=== PATIENT | female | born 1995 | race Caucasian/White ===

== ENCOUNTER 2024-06-29 08:20 | Emergency (ER) | payer OTHER, SELFPAY ==
[2024-06-29 08:26] VITALS: BP 116/64; PULSE 94; RESP 18; TEMP 36.6; O2SAT 100
[2024-06-29 08:50] LABS: Basophils Percent Auto 0.2 % (0.2-1.2); Eosinophils Absolute Auto 0.1 K/mm3 (0-0.3); Eosinophils Percent Auto 0.6 % (0-4.4); Hematocrit 42.2 % (37.0-47.0); Hemoglobin 14.8 g/dL (12.0-15.0); Immature Granulocyte Absolute 0.04 K/mm3 (0.00-0.031); Immature Granulocyte Percent A 0.4 % (0-0.5); Lymphocytes Absolute Auto 0.82 K/mm3 (0.9-3.2); Lymphocytes Percent Auto 7.6 % (18.3-44.2); Mean Corpuscular HGB Conc 35.1 g/dl (32-36); Mean Corpuscular Hemoglobin 32.2 pg (26-34); Mean Corpuscular Volume 91.9 fl (80-100); Mean Platelet Volume 9.2 fl (7.4-10.4); Monocytes Absolute Auto 0.4 K/mm3 (0.1-0.6); Monocytes Percent Auto 3.3 % (2.6-8.5); Neutrophils Absolute Auto 9.6 K/mm3 (1.3-6.7); Neutrophils Percent Auto 87.9 % (45.5-73.1); Platelet Count Result 254 k/mm3 (150-375); Red Blood Count 4.59 M/mm3 (4.2-5.4); White Blood Count 10.9 K/mm3 (4.5-10.0)
[2024-06-29] MEDS: SODIUM CHLORIDE 0.9% IV 1,000 ML 999 ML IV CONT (08:54)
[2024-06-29] MEDS: PROMETHAZINE HCL 25 MG/ML AMPUL 12.5 MG IV PUSH (08:54)
[2024-06-29 09:02] LABS: Alanine Aminotransferase 33 U/L (6-35); Albumin Level 5.1 g/dL (3.5-5.1); Alkaline Phosphatase 83 U/L (38-126); Anion Gap 12 mmol/L (4-12); Aspartate Amino Transferase 31 U/L (14-36); Bilirubin,Total 0.9 mg/dL (0.2-1.3); Blood Urea Nitrogen 12 mg/dL (7-17); Carbon Dioxide 22 mmol/L (22-30); Chloride 103 mmol/L (98-107); Estimated CRCL calculation 123 ml/min; Estimated Glomerular Filt Rate > 60; Glucose 98 mg/dL (65-110); Lipase 111 U/L (23-300); Sodium 137 mmol/L (137-145)
[2024-06-29 09:32] LABS: Add Urine Microscopic? NO; Appearance Urine Clear (Clear); Bilirubin Urine Negative (Negative); Blood Urine Negative (Negative); Color Urine Yellow (Yellow); Glucose Urine UA Negative (Negative); Ketones Urine Trace mg/dL (Negative); Leukocyte Esterase Ur Negative LEU/UL (Negative); Nitrate Urine Negative (Negative); Protein Urine Negative (Negative); Specific Grav Ur 1.023 (1.001-1.035); Urobilinogen Urine 0.2 mg/dL (<2.0); pH Urine 5.5 (5.0-9.0)
--- NOTE | 2024-06-29 10:16 | ED.NAVMDI ---
HPI - Nausea/Vomiting/Diarrhea General Chief complaint: Nausea/Vomiting/Diarrhea Stated complaint: 7 weeks -diarrhea and vomiting Time Seen by Provider: 06/29/24 08:44 History of Present Illness HPI Narrative: Patient is a 29-year-old female who presents ER with nausea and vomiting and diarrhea. Began last night. No fevers or chills or sweats. No blood in stool or emesis. No known sick contacts. She does not have access to antiemetics. She is 7 weeks . No vaginal bleeding. She is a patient of Dr. Claudio. . Related Data Allergies Allergy/AdvReac Type Severity Reaction Status Date / Time benactyzine Allergy Severe Hives Verified 06/29/24 08:31 Review of Systems Review of Systems: All systems reviewed & are unremarkable except as noted in HPI and below Constitutional: Constitutional: Reports no additional constitutional complaints ENT: Reports system reviewed and no additional complaints, except as documented Cardiovascular: Cardiovascular: Reports no additional cardiovascular complaints Respiratory: Respiratory: Reports no additional respiratory complaints Gastrointestinal: Gastrointestinal: Denies abdominal pain, Reports diarrhea, Reports nausea and Reports vomiting Genitourinary: Genitourinary: Reports no additional female genitourinary complaints [facility] Past Medical History Medical History Encounter for IUD insertion 07/25/2023 Surgical History Surgical History H/O shoulder surgery left 2013 Family History Family History Grandparent Acute myocardial infarction Cerebrovascular accident Sibling Asthma Depression Hyperthyroidism Father Colon polyp Skin cancer Social History Social History Smoking status: Never smoker Alcohol intake: current Alcohol use details: soically Substance use: never Substance use type: does not use Lack of Transportation: No Lack of Food: Never True Current Housing: I Have Housing Concerned About Future Housing: No Difficulty Paying Gas/Electric Bills: No Difficulty Paying for Meds: No Currently Unemployed: No Education: High School Diploma/GED Difficulty w/ Childcare or Family Care: No Living arrangements: with family Occupation/Education: occupation Gender identity (if verbalized by the patient): Female Sexual Orientation (if Verbalized by the Patient): Straight or Heterosexual Exam Narrative: GENERAL: Well-appearing, well-nourished, and in no acute distress. HEAD: Normocephalic, atraumatic. ENT: Mucous membranes moist. CHEST: Clear to auscultation. No respiratory distress. HEART: Regular rate and rhythm. Normal peripheral pulses. ABDOMEN: Soft, nontender, nondistended. EXTREMITIES: Normal range of motion. No edema. NEURO: Alert and oriented x3. PSYCH: Normal mood and affect. Course Vital Signs Vital signs: Vital Signs Temperature 98 F 06/29/24 08:26 Pulse Rate 94 06/29/24 08:26 Respiratory Rate 18 06/29/24 08:26 Blood Pressure 116/64 06/29/24 08:26 Pulse Oximetry 100 06/29/24 08:26 Oxygen Delivery Room Air 06/29/24 08:26 Temperature 98 F 06/29/24 08:26 Pulse Rate 94 06/29/24 08:26 Respiratory Rate 18 06/29/24 08:26 Blood Pressure 116/64 06/29/24 08:26 Pulse Oximetry 100 06/29/24 08:26 Oxygen Delivery Room Air 06/29/24 08:26 MDM - Nausea/Vomiting/Diarrhea MDM Narrative Medical decision making narrative: -Course: Improving with medication. Comfortable discharge home. -Co-morbidities complicating care: -Social determinants of health: Lives at home with spouse and child. -External Chart Review: None -Hx from independent Sources: Patient -Independent interpretation of studies: Normal CMP. Nonspecific elevati
[2024-06-29 10:25] VITALS: BP 126/84; PULSE 86; RESP 14; O2SAT 99
[2024-06-29] MEDS: ONDANSETRON HCL ODT 4 MG TABLET PO (10:39)
== END 2024-06-29 10:30 | disposition home or self-care (01) ==
PROVIDERS: Emergency Provider Emergency Medicine; PCP Nurse Practitioner
DX: O21.9 Vomiting of pregnancy, unspecified (principal); Z3A.01 Less than 8 weeks gestation of pregnancy
CPT/HCPCS: 36415; 80053; 81003; 83690; 85025; 96361; 96374; 99284; A9270; J2550; J7030

== ENCOUNTER 2024-07-22 09:47 | Outpatient (CLI) | payer OTHER, SELFPAY ==
[2024-07-22 10:16] LABS: Basophils Percent Auto 0.5 % (0.2-1.2); Eosinophils Absolute Auto 0.1 K/mm3 (0-0.3); Eosinophils Percent Auto 0.9 % (0-4.4); Hematocrit 39.1 % (37.0-47.0); Hemoglobin 13.2 g/dL (12.0-15.0); Immature Granulocyte Absolute 0.04 K/mm3 (0.00-0.031); Immature Granulocyte Percent A 0.5 % (0-0.5); Lymphocytes Absolute Auto 1.91 K/mm3 (0.9-3.2); Lymphocytes Percent Auto 23.9 % (18.3-44.2); Mean Corpuscular HGB Conc 33.8 g/dl (32-36); Mean Corpuscular Hemoglobin 31.7 pg (26-34); Mean Corpuscular Volume 93.8 fl (80-100); Mean Platelet Volume 9.2 fl (7.4-10.4); Monocytes Absolute Auto 0.4 K/mm3 (0.1-0.6); Monocytes Percent Auto 4.6 % (2.6-8.5); Neutrophils Absolute Auto 5.6 K/mm3 (1.3-6.7); Neutrophils Percent Auto 69.6 % (45.5-73.1); Platelet Count Result 260 k/mm3 (150-375); Red Blood Count 4.17 M/mm3 (4.2-5.4); Red Cell Distribution Width 12.3 % (11.5-14.5)
[2024-07-22 11:36] LABS: Hepatitis B Surface Antigen Negative (Negative); Rubella IgG Antibody 51.3 IU/ML
[2024-07-22 11:37] LABS: Rapid Plasma Reagin Non-Reactive (NonReactive)
[2024-07-22 14:15] LABS: HIV 1/2 Ab P24 Ag Result Negative (Negative)
[2024-07-23 16:10] LABS: CMV IgG Antibody <0.60 U/mL
[2024-07-31 19:14] LABS: SMA 2.0 RISK VARIANT NOT DETECTED
[2024-08-06 07:58] LABS: CF Result NEGATIVE (NEGATIVE); Ethnicity CA
== END 2024-07-22 09:48 | disposition home or self-care (01) ==
LOC: ANHLAB 09:48
PROVIDERS: PCP Nurse Practitioner; Visit Provider Obstetrics & Gynecology
DX: N94.89 Other specified conditions associated with female genital organs and menstrual cycle (principal)
CPT/HCPCS: 36415; 81220; 81329; 85025; 86592; 86644; 86703; 86747; 86762; 86787; 86850; 86900; 86901; 87086; 87340; G0432

== ENCOUNTER 2024-07-22 10:45 | Outpatient (CLI) | payer OTHER, SELFPAY ==
--- NOTE | ~2024-07-22 | US_ITS ---
EXAMINATION: US OB <=14 wk fetus w TV DATE: 07/22/2024 11:11 INDICATION: Other specified conditions associated with female. . Uncertain dates. TECHNIQUE: Real-time transabdominal and transvaginal pelvic ultrasound was performed. COMPARISON: None. FINDINGS: TRANSABDOMINAL ULTRASOUND: The uterus measures 11.3 x 6.0 x 8.4 cm. TRANSVAGINAL ULTRASOUND: There is an intrauterine gestational sac. A yolk sac is identified. The fet al crown rump length measures 2.6 cm, which correlates with an estimated gestational age of 9 weeks a nd 2 day(s) (+/-) 6 day(s). heart motion is identified measuring 185 beats per minute (bpm) by M-mode Doppler. The right ovary measures 4.1 x 2.4 x 2.5 cm. The left ovary measures 3.3 x 1.8 x 1.6 cm. There is no free fluid in the pelvis. IMPRESSION: 1. Single living intrauterine gestation with estimated date of delivery of 02/22/2025. Reviewed, dictated and finalized at location A. IMPRESSION: 1. Single living intrauterine gestation with estimated date of delivery of 01/26.
== END 2024-07-22 10:46 ==
LOC: MICIMG 10:46
PROVIDERS: PCP Obstetrics & Gynecology; Visit Provider Obstetrics & Gynecology
DX: N94.89 Other specified conditions associated with female genital organs and menstrual cycle (principal)
CPT/HCPCS: 76801; 76817

== ENCOUNTER 2024-11-29 08:27 | Outpatient (RCR) | payer OTHER, SELFPAY ==
[2024-11-29 10:24] LABS: Basophils Percent Auto 0.4 % (0.2-1.2); Eosinophils Absolute Auto 0.1 K/mm3 (0-0.3); Eosinophils Percent Auto 0.7 % (0-4.4); Hematocrit 33.7 % (37.0-47.0); Hemoglobin 11.3 g/dL (12.0-15.0); Immature Granulocyte Absolute 0.05 K/mm3 (0.00-0.031); Immature Granulocyte Percent A 0.5 % (0-0.5); Lymphocytes Absolute Auto 2.03 K/mm3 (0.9-3.2); Mean Corpuscular HGB Conc 33.5 g/dl (32-36); Mean Corpuscular Hemoglobin 32.4 pg (26-34); Mean Corpuscular Volume 96.6 fl (80-100); Mean Platelet Volume 9.2 fl (7.4-10.4); Monocytes Absolute Auto 0.6 K/mm3 (0.1-0.6); Monocytes Percent Auto 5.7 % (2.6-8.5); Neutrophils Absolute Auto 7.9 K/mm3 (1.3-6.7); Neutrophils Percent Auto 73.7 % (45.5-73.1); Platelet Count Result 258 k/mm3 (150-375); Red Blood Count 3.49 M/mm3 (4.2-5.4); Red Cell Distribution Width 12.1 % (11.5-14.5); White Blood Count 10.7 K/mm3 (4.5-10.0)
[2024-11-29 10:32] LABS: Glucose 1 Hour PP 50gm Dose 59 mg/dL
[2024-11-29 11:12] LABS: HIV 1/2 Ab P24 Ag Result Negative (Negative)
[2024-11-29 19:20] LABS: Rapid Plasma Reagin Non-Reactive (NonReactive)
[2024-11-30] MEDS: RHO(D) IMMUNE GLOBULIN 300 MCG/2 ML SYRINGE IM (11:54)
== END 2025-02-27 23:59 | disposition home or self-care (01) ==
LOC: ANHLAB 08:27
PROVIDERS: PCP Obstetrics & Gynecology; Visit Provider Obstetrics & Gynecology
DX: Z11.4 Encounter for screening for human immunodeficiency virus [HIV] (principal); Z11.3 Encounter for screening for infections with a predominantly sexual mode of transmission; O36.0190 Maternal care for anti-D [Rh] antibodies, unspecified trimester, not applicable or unspecified; Z3A.00 Weeks of gestation of pregnancy not specified
CPT/HCPCS: 36415; 82947; 85025; 85461; 86592; 86703; 86850; 86900; 86901; 90384; 96372; G0432; J2790

== ENCOUNTER 2025-01-03 13:12 | Outpatient (CLI) | payer OTHER, SELFPAY ==
--- NOTE | ~2025-01-03 | US_ITS ---
EXAMINATION: US OB follow up DATE: 01/03/2025 13:36 INDICATION: Encounter for supervision of normal during third trimester. TECHNIQUE: Real-time ultrasound of the pelvis was performed. The interpreting radiologist was not pre sent for the study. COMPARISON: 12/23/2024 FINDINGS: There is a single living fetus in vertex presentation. The placenta is anterior and not low-lying. F etal heart rate is 142 beats per minute (bpm). The amniotic fluid index is 10.1 cm, which is normal (5th%-95%: 8.3-24.5 cm at 33 weeks estimated gestational age). The following biometric data were obtained: BPD: 8.4 cm -> 33 weeks 6 days Head circumference: 30.7 cm -> 34 weeks 1 days Abdominal circumference: 28.8 cm -> 32 weeks 6 days Femur length: 6.2 cm -> 32 weeks 2 days These measurements are concordant. Head circumference to abdominal circumference ratio: 1.06 (normal range 0.96-1.11). Estimated weight: 2068 g (+/-) 310 g or 4 lbs. 9 oz. (+/-) 11 oz. IMPRESSION: 1. Single living fetus in vertex presentation with heart rate of 142 bpm. 2. Normal amniotic fluid index of 10.1 cm. 3. Estimated weight is 29th percentile by Hadlock criteria when 02/19/2025 is used as the estima hannah date of delivery (LONI). Please correlate with clinical information or earlier ultrasounds for mos t accurate LONI. Reviewed, dictated and finalized at location B. ER PRESS OPERATOR IMPRESSION: 1. Single living fetus in vertex presentation with heart rate of 142 bpm. 2. Normal amniotic fluid index of 10.1 cm. 3. Estimated weight is 29th percentile by Hadlock criteria when 02/19/2025 is used as the estimated date of delivery (LONI). Please correlate with clinica l information or earlier ultrasounds for most accurate LONI.
== END 2025-01-03 13:13 | disposition home or self-care (01) ==
LOC: MICIMG 13:13
PROVIDERS: PCP Obstetrics & Gynecology; Visit Provider Student in an Organized Health Care Education/Training Program
DX: Z34.90 Encounter for supervision of normal pregnancy, unspecified, unspecified trimester (principal)
CPT/HCPCS: 76816

== ENCOUNTER 2025-01-08 11:27 | Outpatient (CLI) | payer OTHER, SELFPAY ==
[2025-01-08 11:50] LABS: Alanine Aminotransferase 64 U/L (6-35); Albumin Level 3.6 g/dL (3.5-5.1); Alkaline Phosphatase 329 U/L (38-126); Anion Gap 6 mmol/L (4-12); Aspartate Amino Transferase 63 U/L (14-36); Bilirubin,Total 1.9 mg/dL (0.2-1.3); Blood Urea Nitrogen 6 mg/dL (7-17); Carbon Dioxide 26 mmol/L (22-30); Chloride 104 mmol/L (98-107); Estimated Glomerular Filt Rate > 60; Glucose 76 mg/dL (65-110); INR 0.9; Potassium 3.9 mmol/L (3.4-5.0); Prothrombin Time 12.8 Seconds (11.1-14.7); Sodium 136 mmol/L (137-145)
[2025-01-08 11:51] LABS: Partial Thromboplastin Time 26.8 Seconds (22.3-36.8)
--- OUTSIDE RECORDS SUMMARY | 2025-01-08 12:14 | XMS_ITS | Referral Summary ---
Author Organization [facility] [place] [facility] [address] Address [address] [place] [id number] Care Team Providers Care Para Professional Name Role Phone Unknown, Notinfile Primary Care Provider Unavail able Adan Huitron DO Unavailable Allergies Active Allergy Reactions Criticality Noted Date Comments Benzoyl Peroxide-Aloe Vera Hives Medium 4 Benzoyl Peroxide-Sulfur Itching,Rash Medium 11/19/2021 Mold Other (See comments) Low 02/18/2022 Medications loratadine (CLARITIN) 10 mg tablet Active 123/iron/folic/ omeg3s (ONE-A-DAY WOMEN'S 1 ORAL) 11/01/2021 Active fish oil-dha-epa 1,200-144-216 mg capsule Take by mouth Active multivitamin tabletIndicatio ns:Vitamin Deficiency Prevention Take 1 tablet by mouth Active fexofenadine (JOSE) 60 mg tablet Take 1 tablet (60 mg total) by mouth daily Active ofloxacin (OCUFLOX) 0.3 % ophthalmic solutionIndicat ions:Hordeolum externum left lower eyelid instill 2 drops in left eye every 4 hours for 2 days, then 2 drops 4 times daily on days 3 through 7 5 mL 04/24/2024 Active Active Problems Problem Noted Date Diagnosed Date Acute non-recurrent maxillary sinusitis 11/19/20 21 Assessment & Plan (11/19/2021 8:28 AM BANK EXAMINER): -amoxicillin 500 b.i.d. -continue the loratadine -continue to Tylenol -drink plenty of fluids -notify your provider if you do not improve Arthralgia of elbow 03/18/2013 Arthralgia of shoulder 12/06/2012 Social History Tobacco Use Types Packs/Day Years Used Date Smoking Tobacco: Never Comments Unknown Sex and Gender Information Value Date Recorded Sex Assigned at Not on file Legal Sex Female 6:53 AM BANK EXAMINER Gender Identity Not on file Sexual Orientation Not on file Last Filed Vital Signs Vital Sign Reading Time Taken Comments Blood Pressure 120/79 04/24/2024 11:45 AM CDT Pulse 59 04/24/2024 11:45 AM CDT Temperature 36.8 C (98.2 F) 04/24/2024 11:45 AM CDT Respiratory Rate 18 04/24/2024 11:45 AM CDT Oxygen Saturation 97% 04/24/2024 11:45 AM CDT Inhaled Oxygen Concentration - - Weight 78 kg (171 lb 14.4 oz) 04/24/2024 11:45 A M CDT Height 165.1 cm (5' 5 ) 04/24/2024 11:45 AM CDT Body Mass Index 28.61 04/24/2024 11:45 AM CDT Plan of Treatment Not on file Insurance [employer] OPEN ACCESS [employer] OPEN ACCESS Care Teams Para Professional Relationship Specialty Start Date End Date Unknown, Notinfile PCP - General 04/24/24 Adan Huitron DO Family Medicine 04/24/24
--- OUTSIDE RECORDS SUMMARY | 2025-01-08 12:14 | XMS_ITS | Clinical Summary ---
Author Organization [facility] [place] [address] Address [address] [place] [phone] Care Team Providers Care Fiction And Nonfiction Prose Writer Name Role Phone Unknown, Notinfile Primary Care Provider Unavail able Adan Huirton DO Unavailable Allergies Active Allergy Reactions Criticality [...] 21 Assessment & Plan (11/19/2021 8:28 AM GENERAL FOUNDRY WORKER): -amoxicillin 500 b.i.d. -continue the loratadine -continue to Tylenol -drink plenty of fluids -notify your provider if you do not improve Arthralgia of elbow 03/18/2013 Arthralgia of shoulder 12/06/2012 Social History Tobacco Use Types Packs/Day Years Used Date Smoking Tobacco: Never Comments Unknown Sex and Gender Information Value Date Recorded Sex Assigned at Not on file Legal Sex Female 6:53 AM GENERAL FOUNDRY WORKER Gender Identity Not on file Sexual Orientation Not on file Obstetrics History Para Term AB IAB SAB Ectopic Multiple Livin g Live Births 1 0 0 0 0 0 0 0 Date Outcome GA Total Labor Labor/2nd/3rd Weight Sex Type Anes PTL Cindy A1 A5 Name Clin Last Filed Vital Signs Vital Sign Reading [...] 04/24/2024 11:45 AM CDT Plan of Treatment Health Maintenance Due Date Last Done Comments Depression Screening 1997 Hepatitis C Screening 1997 Hepatitis B Screening 2015 Regular Well Visit/Exam 18-64 2015 Cervical Cancer Screening 09/04/2021 09/04/2020 Covid-19 Vaccine ( season) 2024 02/02/2021 Influenza Vaccine (#1) 2024 , 09/13/2021, 09/04/2020, Additional history exists DTaP/Tdap/Td Vaccine (8 - Td or Tdap) 09/13/2031 09/13/2021, 05/13/2008, 07/27/2001, Additional history exists Varicella Vaccines Completed 07/09/2001, 09/17/1998 HPV Vaccines Completed 03/08/2010, 07/28, 05/13/2008 Pneumococcal vaccine <65 Aged Out No longer eligible based on patient's age to complete this topic Insurance [employer] [place] [employer] OPEN ACCESS Care Teams Fiction And Nonfiction Prose Writer Relationship Specialty Start Date End Date Unknown, Notinfile PCP - General 04/24/24 Adan Huitron DO Family Medicine 04/24/24
== END 2025-01-08 11:28 | disposition home or self-care (01) ==
LOC: ANHLAB 11:28
PROVIDERS: Visit Provider Obstetrics & Gynecology
DX: O99.719 Diseases of the skin and subcutaneous tissue complicating pregnancy, unspecified trimester (principal); L29.9 Pruritus, unspecified; Z3A.00 Weeks of gestation of pregnancy not specified
CPT/HCPCS: 36415; 80053; 82542; 85610; 85730

== ENCOUNTER 2025-01-12 18:12 | Observation (INO) | payer OTHER, SELFPAY ==
[2025-01-12] VITALS (11 sets, daily range): BP systolic 114–130; BP diastolic 66–78; PULSE 98–116; TEMP 36.8; BMI 28.3
--- OUTSIDE RECORDS SUMMARY | 2025-01-12 18:17 | XMS_ITS | Clinical Summary ---
Author Organization [facility] Address [facility] [place] [address] Care Team Providers Care Bulk Loader Name Role Phone Maria G Kuhn Primary Care Provider [phone] Allergies Active Allergy Reactions Criticality Noted Date Comments Benzoyl Peroxide Hives Medium 07/06/2022 Molds & Smuts Other (see comment) Low 02/18/2022 Medications Biotin w/ Vitamins C & E (HAIR/SKIN/NAIL S OR) Active BACITRACIN-POLY MYXIN B, OPHTH, (POLYSPORIN) OintmentIndicat ions:Hordeolum externum of left upper eyelid Place into both eyes 2 (two) times daily. 3.5 g 1 2023 Active predniSONE (DELTASONE) 10 mg tabletIndicatio ns:Tendonitis of ankle or foot Start 60 mg today and decrease by one tablet each day until complete. 21 tablet 08/28/2023 Active vitamin D3, cholecalciferol , 10 mcg tablet Take 1 tablet (400 Units total) by mouth daily. Active Active Problems Problem Noted Date Diagnosed Date Vaginal delivery ([facility]) 07/08/2022 ([facility]) 10/28/2021 Seasonal allergic rhinitis due to pollen 020 Arthralgia of shoulder 12/06/2012 Resolved Problems Problem Noted Date Diagnosed Date Resolved Date ([facility]) 07/06/2022 07/08/20 22 Immunizations Name Administration Dates Next Due DTaP-IPV (Quadracel) 07/09/2001,1997,05/27 Dtap (Generic) 07/27/2001, 8,1997,08/27,1997 Fluzone 6 Months+ Quad (0.5 mL Prefilled Syringe) 11/30/2022,09/13/2021,09/04/2020,12/05 HPV4 (Gardasil) 03/08/2010,08/13/2008,05/13/2008 Hepatitis A (Generic) 07/01/2003,12/27/2002 Hepatitis B (Generic Peds) 1997,1997 ,1997 Hib (Generic) 09/17/1998, 7,1997,05/27 Influenza Adult (Generic) 12/05/2019,,09/27/2007,11/17 Influenza Peds (Generic) 11/17/1999 MMR (Generic) 07/09/2001,09/17/1998 Meningococcal (Menactra) 05/13/2008 Opv 09/17/1998 Polio Ipv (Generic) 07/09/2001,1997,1996 Polio Opv (Generic) 09/17/1998 Tdap (Adacel) 09/13/2021 Tdap (Generic) 05/13/2008 Family History Medical History Relation Comments Arthritis Father Alzheimers Maternal Grandmother Diabetes Maternal Grandmother Hypertension Maternal Grandmother Arthritis Mother degenerative disc Mother Asthma Sister 1 Hypertension Sister 1 Depression Sister 2 Hypertension Sister 3 Relation Status Comments Father Maternal Grandmother Mother Sister 1 Sister 2 Sister 3 Social History Tobacco Use Types Packs/Day Years Used Date Smoking Tobacco: Never Smokeless Tobacco: Never Tobacco Cessation:Counseling Given: No Comments:The provider can provide you with more information about quitting. Alcohol Use Standard Drinks/Week Comments Yes 1 (1 standard drink = 0.6 oz pur e alcohol) AUDIT-C Answer Date Recorded Frequency of Alcohol Consumption Never 12/05/2019 Average Number of Drinks Not on file 020 Frequency of Binge Drinking Not on file 07/2020 PHQ-2 Answer Date Recorded Patient Health Questionnaire-2 Score 0 11/30/2022 Depression Answer Date Recor ded Last EPDS Total Score 2 02/24/2023 Last EPDS Self Harm Result Sometimes 02/24 Comments No Sex and Gender Information Value Date Recorded Sex Assigned at Not on file Legal Sex Female 4:31 PM CDT Gender Identity Not on file Sexual Orientation Not on file Last Filed Vital Signs Vital Sign Reading Time Taken Comments Blood Pressure 111/70 03/02/2023 9:24 AM CDT Pulse 70 03/02/2023 9:24 AM CDT Temperature 36.8 C (98.3 F) 03/02/2023 9:24 AM CDT Respiratory Rate 18 11/30/2022 7:49 AM STUDENT WORKER Oxygen Saturation 98% 11/30/2022 7:49 AM STUDENT WORKER Inhaled Oxygen Concentration - - Weight 72.6 kg (160 lb) 03/02/2023 9:24 AM CDT Height 166.4 cm (5' 5.5 ) 03/02/2023 9:24 AM CDT Body Mass Index 26.22 03/02/2023 9:24 AM CDT Plan of Treatment Health Maintenance Due Date Last Done Comments PHQ-2 (Physician [place]) 2009 Hepatitis C 2015 Cervical Cancer Screening Pap Smear (Age 21 to 29) Every 3 Years 09/04/2023 09/04/2020, 09/04/2020 Cervical Cancer Screening 09/04/2023 Annual Physical 03/02/2024 03/02/2023, 02/2023, 12/05/2019 COVID-19 Vaccine ( season) 2024 02/02/2021 Influenza Adult (#1) 2024 11/30/2022, 09/13/2021, 09/04/2020, Additional history exists PHQ-2 ([facility] [place]) 11/27/2024 DTaP, Tdap and Td Vaccines (8 - Td or Tdap) 09/13/2031 09/13/2021, 05/13/2008, 07/27/2001, Additional history exists Hepatitis B Vaccines Completed 1997, 1997, 1997 Meningococcal Vaccine Aged Out 05/13/2008 No dawn josé miguel eligible based on patient's age to complete this topic HPV Vaccines Completed 03/08/2010, 07/28, 05/13/2008 Meningococcal B Vaccine Aged Out No l onger eligible based on patient's age to complete this topic Pneumococcal Vaccine: Pediatrics (0 to 5 Years) and At-Risk Patients (6 to 64 Years) Aged Out No longer eligible based on patient's age to complete this topic RSV Immunizations Under 20 Months Aged Out No longer eligible based on patient's age to complete this topic Procedures Procedure Name Priority Date/Time Associated Diagnosis Comments CYTOPATH CERV/VAG THIN LAYER Routine 09/04/2020 12:00 AM CDT Encounter for screening for malignant neoplasm of cervix from Last 3 Months or Most Recently Relevant to Health Maintenance Results * Cytopath Cerv/Vag Thin Layer (09/04/2020 12:00 AM CDT) COPATH REPORT [place] [phone] Department of Pathology Pathology Report Gynecological Cytology Report Patient Name: KARINA MUNIZ : 1995 (Age: 25) Location: [facility] Gender: F Collected Date: 09/04/2020 Med Rec #: [id number] Date Received: 09/08/2020 Date Reported: 09/14/2020 Provider: DEWAYNE HUITRON DO Final Cytologic Diagnosis Satisfactory for evaluation. Endocervical component present. Negative for Intraepithelial Lesion or Malignancy. High-risk HPV mRNA E6/E7 by Aptima assay (performed at [facility]) is reported as NOT DETECTED (see separate report for details). Electronically Signed Out By Sudhir Bashir Source of Specimen(s) Cervical/Endocervi isabell - Thin Prep Clinical History Screening, last Pap not provided. Z12.4 Date of Last Menstrual Period: June 2020 Billing Fee Code(s): A: 49940 [facility] (B) [facility] 09/04/2020 09/08/2020 8:3 9 AM CDT Comment:CERVICAL/ENDOCERVICA L - THIN PREP Dewayne Huitron DO PATHOLOGY/CYTOLOGY ORDERABLES Final Result [facility] [address] [place] [address], [place] [phone] from Last 3 Months or Most Recently Relevant to Health Maintenance Insurance [employer] Member Subscriber Plan / Payer (Ef fective 2021-Present) Name:Karina Fallon Relation to Subscriber:Self Name:Karina Fallon Payer ID:Not on file Type:Not on file Address: [place] [phone] [employer] [facility] Advance Directives * Full Code (Latest Code Status on File) Date Activated Date Inactivated Comments 07/06/2022 7:04 AM 07/08/2022 7:57 PM Care Teams Bulk Loader Relationship Specialty Start Date End Date Maria G Kuhn APNP [address] [place] [address] PCP - General NURSE PRACTITIONER 03/02/23
--- OUTSIDE RECORDS SUMMARY | 2025-01-12 18:17 | XMS_ITS | Encounter Summary ---
Author Organization [facility] Address [address] [place] [id number] Care Team Providers Care Live In Housekeeper Nanny Name Role Phone , Generic Dex LORA Primary Care Provider Unavailable Adan Huitron DO Primary Care Provider [phone] Adan Huitron DO Primary Care Provider + Poirot, Maria G APNP Primary Care Provider + RyConnie carter DO Primary Care Provider + [phone] Adan Huitron DO Unavailable + [phone] Poirot, Maria G APNP Unavailable + [phone] Poirot, Maria G APNP Primary Care Provider + Encounter Details Date Type Department Care Team (Late st Contact Info) Description 09/30/2017 [place] [address] , Generic ConversionMD Social History Tobacco Use Types Packs/Day Years Used Date Smoking Tobacco: Never Assessed Comments Unknown Sex and Gender Information Value Date Recorded Sex Assigned at Not on file Legal Sex Female 4:31 PM CDT Gender Identity Not on file Sexual Orientation Not on file documented as of this encounter Plan of Treatment Not on file documented as of this encounter Visit Diagnoses Not on filedocumented in this encounter Additional Health Concerns Infection Onset Date Last Indicated Resolved Time COVID-19 Rule Out 06/17/2020 06/17/2020 06/19/2020 7:01 PM CDT documented as of this encounter Care Teams Live In Housekeeper Nanny Relationship Specialty Start Date End Date Tangela Lora MD PCP - General 01/01/16 Adan Huitron DO PCP - General FAMILY PRACTICE 11/28/19 07/05/22 Adan Huitron DO PCP - General FAMILY PRACTICE 07/06/22 10/25/22 Maria G Kuhn APNP [address] [place] [address] PCP - General NURSE PRACTITIONER 10/26/22 11/28/22 [place] [address] [place] [phone] PCP - General FAMILY PRACTICE 11/29/22 03/01/23 Maria G Kuhn APNP [address] [place], [place] [phone] PCP - General NURSE PRACTITIONER 03/02/23 Adan Huitron DO FAMILY PRACTICE 07/06/22 11/15/22 Maria G Kuhn APNP [address] [place], [place] [phone]- NURSE PRACTITIONER 03/02/23 03/02/23 documented as of this encounter
--- OUTSIDE RECORDS SUMMARY | 2025-01-12 18:17 | XMS_ITS | Data Portability ---
Author Organization [facility], [facility] Address [address] [place] [address] Assessment No assessment recorded. Plan of Treatment Reminders Order Date Submit Date Provider Last Modified By Organization Details Last Modified Time Details Appointments None recorded . Lab None recorded . Referral None recorded . Procedures None recorded . Surgeries None recorded . Imaging None recorded . Medication Orders Slynd 4 mg (28) tablet 022 09/01/20 [id number], [address], [place], [id number], 15:55:21 Patient TargetsNo targets recorded. Patient Instructions Encounter Date Encounter Id Patient Instructions Last Modified By Organization Details Last Modified Time 07/20/2022 [id number] Care at Home With Your Baby: Care Instructions swallerdavis Not available 07/20/2022 22:06:23 edinburgh depression scale* ricenogle Not available 08/02/2022 17:38:16 control after counseling swallerdavis Not available 07/20/2022 22:06:23 09/01/2022 [id number] Care at Home With Your Baby: Care Instructions swallerdavis Not available 09/01/2022 15:55:15 edinburgh depression scale* kbritsch Not available 09/09/2022 12:56:25 control after counseling swallerdavis Not available 09/01/2022 15:55:15 Reason for Referral None Reported. Results Created Date Observation Date Name Description Value Unit Range Abnormal Flag Note LastModifiedBy Organization Detail LastModifiedTime 06/09/20 22 06/12/2022 STREP TOCOC CUS, GROUP B CULTU RE streptococcu s, group B culture SEE NOTE STREP TOCOC CUS, GROUP B CULTU RE Micro Numbe r: [id number] Test Statu s: Final Speci men Sourc e: Vagin al/an orect al Speci men Quali ty: Adequ ate Resul t: No group B Strep tococ cus isola daphne Note per CDC guide lines optim al recov jasson is achie javon by swabb ing both the lower vagin a and rectu m (thro ugh the anal sphin cter) . Not Available [facility] [address] [place], [address], 06/12/2022 10:06:37 07/06/20 22 07/06/2022 UA REFLE X TO MICRO specimen type URINE CLEAN CATCH Not Available [facility] (Lab) [place], [address], 07/06/2022 09:04:38 07/06/20 22 07/06/2022 UA REFLE X TO MICRO color YELLOW Not Available [facility] (Lab) [place], [address], 07/06/2022 09:04:38 07/06/20 22 07/06/2022 UA REFLE X TO MICRO clarity CLEAR Not Available [facility] (Lab) [address] [place], [address], 07/06/2022 09:04:38 07/06/20 22 07/06/2022 UA REFLE X TO MICRO specific gravity 1.016 1.001- 1.030 Not Available [facility] (Lab) [place], [address], 07/06/2022 09:04:38 07/06/20 22 07/06/2022 UA REFLE X TO MICRO pH, urine 6.0 5.0-9. 0 Not Available [facility] (Lab) [address] [place], [address], 07/06/2022 09:04:38 07/06/20 22 07/06/2022 UA REFLE X TO MICRO leukocytes NEGATI VE neg Not Available [facility] (Lab) [address] [place], [address], 07/06/2022 09:04:38 07/06/20 22 07/06/2022 UA REFLE X TO MICRO nitrite NEGATI VE neg Not Available [facility] (Lab) [address] [place], [address], 07/06/2022 09:04:38 07/06/20 22 07/06/2022 UA REFLE X TO MICRO protein NEGATI VE mg/dL <30 Not Available [facility] (Lab) [address] [facility], [place], [address], 07/06/2022 09:04:38 07/06/20 22 07/06/2022 UA REFLE X TO MICRO glucose NORMAL mg/dL norm Not Available [facility] (Lab) [address] [place], [address], 07/06/2022 09:04:38 07/06/20 22 07/06/2022 UA REFLE X TO MICRO ketone NEGATI VE mg/dL neg Not Available [facility] (Lab) [address] [place], [address], 07/06/2022 09:04:38 07/06/20 22 07/06/2022 UA REFLE X TO MICRO urobilinogen NORMAL mg/dL norm Not Available [facility] (Lab) [place], [address], 07/06/2022 09:04:38 07/06/20 22 07/06/2022 UA REFLE X TO MICRO bilirubin NEGATI VE mg/dL neg Not Available [facility] (Lab) [address], [place], [address], 07/06/2022 09:04:38 07/06/20 22 07/06/2022 UA REFLE X TO MICRO blood NEGATI VE neg Not Available [facility] (Lab) [address], [place], [address], 07/06/2022 09:04:38 07/06/20 22 07/06/2022 CBC WITH DIFF WBC 11.9 x10'3 /uL 4.5-11 .0 high Not Available [facility] (Lab) [address], [place], [address], 07/06/2022 09:13:30 07/06/20 22 07/06/2022 CBC WITH DIFF RBC 3.92 x10'6 /uL 4.20-5 .40 low Not Available [facility] (Lab) [address], [place], [address], 07/06/2022 09:13:30 07/06/20 22 07/06/2022 CBC WITH DIFF hemoglobin 12.9 g/dL 12.0-1 6.0 Not Available [facility] (Lab) [address], [place], [address], 07/06/2022 09:13:30 07/06/20 22 07/06/2022 CBC WITH DIFF hematocrit 37.8 % 38.0-4 8.0 low Not Available [facility] (Lab) [address], [place], [address], 07/06/2022 09:13:30 07/06/2007/06/2022 CBC WITH DIFF MCV 96.4 fL 81.0-9 9.0 Not Available [facility] (Lab) [address] [facility], [place], [address], 07/06/2022 09:13:30 07/06/20 22 07/06/2022 CBC WITH DIFF MCH 32.9 pg 27.0-3 1.0 high Not Available [facility] (Lab) [address] [facility], [place], [address], 07/06/2022 09:13:30 07/06/2007/06/2022 CBC WITH DIFF MCHC 34.1 g/dL 32.0-3 6.0 Not Available [facility] (Lab) [place], [address], 07/06/2022 09:13:30 07/06/2007/06/2022 CBC WITH DIFF RDW 12.2 % 11.5-1 4.5 Not Available [facility] (Lab) [address] [facility], [place], [address], 07/06/2022 09:13:30 07/06/20 22 07/06/2022 CBC WITH DIFF platelet count 258 x10'3 /uL 130-40 0 Not Available [facility] (Lab) [address] [facility], [place], [address], 07/06/2022 09:13:30 07/06/2007/06/2022 CBC WITH DIFF MPV 9.5 fL 9.3-12 .2 Not Available [facility] (Lab) [place], [address], 07/06/2022 09:13:30 08/10/20 22 07/06/2022 CBC WITH DIFF diff type AUTOMA DAPHNE DIFFER ENTIAL Not Available [facility] (Lab) [address], [place], [address], 07/06/2022 09:13:30 07/06/20 22 07/06/2022 CBC WITH DIFF neutrophils 73.5 % Not Available [facility] (Lab) [address] [facility], [place], [address], 07/06/2022 09:13:30 07/06/20 22 07/06/2022 CBC WITH DIFF lymphocytes 19.2 % Not Available [facility] (Lab) [address] [facility], [place], [address], 07/06/2022 09:13:30 07/06/20 22 07/06/2022 CBC WITH DIFF monocytes 5.8 % Not Available [facility] (Lab) [address] [facility], [place], [address], 07/06/2022 09:13:30 07/06/20 22 07/06/2022 CBC WITH DIFF eosinophils 0.7 % Not Available [facility] (Lab) [address], [place], [address], 07/06/2022 09:13:30 07/06/20 22 07/06/2022 CBC WITH DIFF basophils 0.3 % Not Available [facility] (Lab) [address], [place], [address], 07/06/2022 09:13:30 07/06/20 22 07/06/2022 CBC WITH DIFF immature granulocytes 0.5 % Not Available [facility] (Lab) [address], [place], [address], 07/06/2022 09:13:30 07/06/20 22 07/06/2022 CBC WITH DIFF abs. neutrophils 8.79 x10'3 /uL 1.80-7 .70 high Not Available [facility] (Lab) [address] [place], [address], 07/06/2022 09:13:30 07/06/20 22 07/06/2022 CBC WITH DIFF abs. lymphocytes 2.29 x10'3 /uL 1.00-4 .80 Not Available [facility] (Lab) [address] [facility], [place], [address], 07/06/2022 09:13:30 07/06/20 22 07/06/2022 CBC WITH DIFF abs. monocytes 0.69 x10'3 /uL 0.24-0 .86 Not Available [facility] (Lab) [place], [address], 07/06/2022 09:13:30 07/06/20 22 07/06/2022 CBC WITH DIFF abs. eosinophils 0.08 x10'3 /uL 0.04-0 .36 Not Available [facility] (Lab) [address] [facility], [place], [address], 07/06/2022 09:13:30 07/06/20 22 07/06/2022 CBC WITH DIFF abs. basophils 0.03 x10'3 /uL 0.01-0 .08 Not Available [facility] (Lab) [address] [place], [address], 07/06/2022 09:13:30 07/06/2007/06/2022 CBC WITH DIFF abs. immature grans 0.06 x10'3 /uL 0.00-0 .49 Not Available [facility] (Lab) [place], [address], 07/06/2022 09:13:30 07/06/20 22 07/06/2022 DRUGS OF ABUSE PANEL , URINE amphetamines , urine NEGATI VE neg Not Available [facility] (Lab) [address] [facility], [place], [address], 07/06/2022 09:13:52 07/06/20 22 07/06/2022 DRUGS OF ABUSE PANEL , URINE barbituates, urine NEGATI VE neg Not Available [facility] (Lab) [address] [facility], [place], [address], 07/06/2022 09:13:52 07/06/2007/06/2022 DRUGS OF ABUSE PANEL , URINE benzodiazapi roger, urine NEGATI VE neg Not Available [facility] (Lab) [address] [facility], [place], [address], 07/06/2022 09:13:52 07/06/20 22 07/06/2022 DRUGS OF ABUSE PANEL , URINE cannabinoids /THC, urine NEGATI VE neg Not Available [facility] (Lab) [address] [facility], [place], [address], 07/06/2022 09:13:52 07/06/20 22 07/06/2022 DRUGS OF ABUSE PANEL , URINE cocaine, urine NEGATI VE neg Not Available [facility] (Lab) [address] [facility], [place], [address], 07/06/2022 09:13:52 07/06/20 22 07/06/2022 DRUGS OF ABUSE PANEL , URINE methadone, urine NEGATI VE neg Not Available [facility] (Lab) [address] [facility], [place], [address], 07/06/2022 09:13:52 08/10/07/06/2022 DRUGS OF ABUSE PANEL , URINE opiates, urine NEGATI VE neg Not Available [facility] (Lab) [place], [address], 07/06/2022 09:13:52 07/06/20 22 07/06/2022 DRUGS OF ABUSE PANEL , URINE phencyclidin es, urine NEGATI VE neg NOTE: RESUL TS OF THIS DRUG SCREE N SHOUL D BE USED FOR MEDIC AL PURPO SES ONLY AND NOT FOR LEGAL OR EMPLO YMENT PURPO SES. POSIT CLAIRE RESUL TS ARE NOT CONFI RMED. MEDIC ATION S CONTA INING EPHED RINE MAY CAUSE FALSE POSIT CLAIRE AMPHE TAMIN E CALL [phone], LAB, TO REQUE ST CONFI RMATI ON TESTI NG. IF CREAT ININE IS <40 mg/dL . RECOL LECTI ON IS SUGGE STED. AMPHE TAMIN E- 500 NG/ML SARAY TURAT E- 200 NG/ML BENZO DIAZE PINES - 200 NG/ML THC- 50 NG/ML COCAI NE- 150 NG/ML METHA DONE- 300 NG/ML OPIAT E- 300 MG/ML PCP- 25 NG/ML Not Available [facility] (Lab) [place], [address], 07/06/2022 09:13:52 07/06/20 22 07/06/2022 DRUGS OF ABUSE PANEL , URINE creatinine, urine 117.0 mg/dL 28-217 Not Available [facility] (Lab) [place], [address], 07/06/2022 09:13:52 07/06/20 22 07/06/2022 TYPE AND SCREE N ABO/Rh(D) B NEGATI VE Not Available [facility] (Lab) [place], [address], 07/06/2022 11:36:41 07/06/20 22 07/06/2022 TYPE AND SCREE N antibody screen POSITI VE Not Available [facility] (Lab) [place], [address], 07/06/2022 11:36:41 07/06/20 22 07/06/2022 TYPE AND SCREE N xm expiration 2021,2 359 Not Available [facility] (Lab) [address], [place], [address], 07/06/2022 11:36:41 07/06/20 22 07/06/2022 TYPE AND SCREE N antibody id NO ALLOAN TIBODI ES DETECT ED Not Available [facility] (Lab) [address], [place], [address], 07/06/2022 11:36:41 07/06/20 22 07/06/2022 TYPE AND SCREE N comment ANTI- D MOST LIKEL Y DUE TO RECEN T RH IMMUN E GLOBU ERIK INJEC TION. Not Available [facility] (Lab) [address], [place], [address], 07/06/2022 11:36:41 05/18/20 22 05/11/2022 US, obste tric, follo w-up No observ ation record ed. BALDEMAR Not Available 2021 17:49:14 Result Notes None recorded. Problems Name Problem SNOMED Code Status Onset Date Resolution Date Notes Provider Name and Address Organization Details Recorded Time Pregnanc y 28120483 Completed 202109/03/2022 B-/RI/NRx 3/ GBS neg Mariely mathias CNM [address] [facility], [place], [address], [facility] 14:44:36 Pregnanc y 51827140 Completed 2021 B-/RI/NRx 3/ GBS neg Mariely Bahena-Da vis, [address], [address], [facility] 14:44:34 COVID-19 000715641 Active 1st trimester will need growth Mariely mathias, [address], [address], [facility] 14:44:34 COVID-19 209136620 Completed 1st trimester will need growth [facility] Rene mathias, [address], [address], [facility] 14:44:34 Blood group B Rh(D) negative 825554157 Completed Rhogam at 28 weeks Mariely ShrutiKalpesh mathias, [address], [address], [facility] 14:44:34 Blood group B Rh(D) negative 172274745 Active Rhogam at 28 weeks [place] ShrutiKalpesh mathias, [address], [address], [facility] - [facility] 2 14:44:34 Problem Notes None recorded. Procedures Surgical History Date Name Laterality Status Provider Name and Address Organization Details Recorded Time 1 Date of Last Pap Smear completed Natavia [place] [facility] 01/19/2022 16:46:35 procedure on shoulder completed Cari [place] [facility] 12/21/2021 16:11:05 Imaging Results Imaging Date Name Status LastModified by Organiz ation Details LastModified Time 05/11/2022 US, obstetric, follow-up completed BALDEMAR Information not available 05/19/2022 17:49:14 Procedure Notes None recorded. Medical Equipment None Reported. Allergies Allergen ID Allergen Name Allergen Category Reaction Reaction Severity Criticality Documentation Date Start Date Code Code System Note Provider Name and Address Organization Details Recorded Time 324283 mold extract environme nt Not available Not available Not available 01/19/2022 93709 8 RxNorm Not Available Not Available Not Available No known drug allergies Medications Name Sig Start Date Stop Date Status Note LastModified by Organization Details LastModified Time active Not Available Not Avai lable Not Available Slynd 4 mg (28) tablet Take 1 tablet every day by oral route. 022 active Not Available Not Available Not Avai lable Vitals Date Recorded Body height Body mass index (BMI) Body weight Body temperature Systolic blood pressure Diastolic blood pressure Provider Name and Address Organization Details Last Updated DateTime 165.1 cm 29.1 kg/m2 36389.6 6475 g 97 [degF] 110 mm[Hg] 60 mm[Hg] Tramea Lima [facility] 12:50:57 Date Recorded Body height Body mass index (BMI) Systolic blood pressure Diastolic blood pressure Provider Name and Address Organization Details Last Updated DateTime 06/22/2022 165.1 cm 29.1 kg/m2 100 mm[Hg] 64 mm[Hg] Sobeida Phipps [place] [facility] 06/22/2022 18:13:58 Date Recorded Body weight Provider Name an d Address Organization Details Last Updated DateTime 06/22/2022 43248.31941 g Mariely Lam, [address] [place], [address], [facility] 07/05/2022 09:26:01 Date Recorded Body height Body mass index (BMI) Body temperature Systolic blood pressure Diastolic blood pressure Provider Name and Address Organization Details Last Updated DateTime 06/30/2022 165.1 cm 29.6 kg/m2 97 [degF] 110 mm[Hg] 60 mm[Hg] Tramea Lima [facility] 16:37:03 Date Recorded Body weight Provider Name an d Address Organization Details Last Updated DateTime 06/30/2022 03048.75861 g Mariely Lam [facility] [address] [place], [address], [facility] 07/05/2022 08:35:14 Date Recorded Body height Body mass index (BMI) Body weight Body temperature Systolic blood pressure Diastolic blood pressure Provider Name and Address Organization Details Last Updated DateTime 165.1 cm 27.1 kg/m2 02741.5 6 g 97.3 [degF] 102 mm[Hg] 76 mm[Hg] Gifty King [facility] 13:55:16 Date Recorded Body height Body mass index (BMI) Body weight Body temperature Provider Name and Address Organization Details Last Updated DateTime 09/01/2022 165.1 cm 26.9 kg/m2 91747.245 466 g 97 [degF] Bhargavi Amato [employer] 09/01/2022 15:38:23 Social History Question Answer Notes LastModified by Organizat ion Details LastModified Time Tobacco Smoking Status Never Smoker Shorty Corbett danielito, [facility] 01/19/2022 16:46:36 What Is Your Level Of Alcohol Consumption? Occasional Information not available 01/19/2022 How Many Years Have You Consumed Alcohol? 3 Information not available 01/19/2022 Are You Currently Employed? Yes Information not available 01/19/2022 What Type Of Diet Are You Following? SPECIFIC Information not available 01/19/2022 Do You Or Have You Ever Used E-cigarettes Or Vape? Never Used Electronic Cigarettes Information not available 01/19/2022 How Many Children Do You Have? 1 [email or web address] Information not available 07/20/2022 What Is Your Relationship Status? Information not available 12/21/2021 Are You Sexually Active? Yes Information not available 12/21/2021 Sex: Female Functional Status Question Answer Note LastModified by Organization D etails LastModified Time What is your exercise level? Moderate Information not available 01/19/2022 Mental Status None recorded. Family History Relationship Description Onset Age of this Age Resolved Age Notes LastModified by Organization Details LastModified Time Unspecified Relation Alzheimer's disease Father s side Not available 01/19/2022 16:46:35 Unspecified Relation Hypertensive disorder mother s side Not available 01/19/2022 16:46:35 Maternal Grandmother Hypertensive disorder Not available 2021 16:46:35 Sister Depressive disorder Not available 2021 16:46:35 Sister Hypertensive disorder Not available 2021 16:46:35 Medical History No medical history recorded. Gynecological History Statement/Question Response Flow Moderate Date of LMP 10/02/2021 Frequency of Cycle (Q days) 28 Date of Last Pap Smear 09/13/2021 Duration of Flow (days) 4 Current Control Method None Age at Menarche 16 Obstetrics History GPAL:G 1 P 2 0 0 1 Type Value Full Term 2 Living 1 Total 1 Past Encounters Encounter ID Performer Location Encounter Start Date Encounter Closed Date Diagnosis/Indication Diagnosis SNOMED-CT Code Diagnosis ICD10 Code Diagnosis Note [id number] Mariely Lou is, [facility] [address] [place] [address] 12/21/2021 15:20:03 12/23/2021 14:17:24 Routine care 581585966 Z34.91 [id number] Mariely Lou is, [facility] [address] [place] [address] 01/19/2022 16:32:23 01/20/2022 14:03:58 [id number] Mariely Lou is, [facility] [address] [place] [address] 02/17/2022 14:11:01 02/17/2022 17:01:01 [id number] Mariely Lou is, [facility] [address] [place] [address] 04/16/2022 11:27:02 04/18/2022 09:00:39 Routine care 908327748 Z34.03 Gestation period, 29 weeks 41458616 Z3A.29 [id number] Mariely Lou is, [facility] [address] [place] [address] 04/27/2022 18:18:29 04/28/2022 10:12:23 History of SARS-CoV-2 [id number] 74255499 Z86.16 78635970 Z33.1 [id number] Mariely Bahena-Damion is, [facility] [address] [place] [address] 05/11/2022 17:53:51 05/12/2022 10:54:06 [id number] Mariely Lou is, [facility] [address] [place] [address] 05/25/2022 17:54:37 05/27/2022 09:59:56 [id number] Mariely Lou is, [facility] [address] [place] [address] 06/08/2022 17:54:24 06/13/2022 14:02:51 screening 062333528 Z36.9 [id number] Z33.1 [id number] Mariely dodd, [facility] [address] [place] [address] 06/14/2022 12:32:19 06/22/2022 13:40:19 [id number] Mariely dodd, [facility] [address] [place] [address] 06/22/2022 17:59:14 06/23/2022 10:03:09 [id number] Z33.1 [id number] Mariely dodd, [facility] [address] [facility] [place] [address] 06/30/2022 16:08:43 07/01/2022 09:29:47 [id number] Mariely dodd, [facility] [address] [place] [address] 07/20/2022 13:45:36 07/21/2022 10:52:19 state 61417894 Z39.2 Doing well, great supportMoo d stableEPDS 0 [id number] Mariely dodd, [facility] [address] [place] [address] 09/01/2022 15:27:27 09/16/2022 14:36:44 state 21377878 Z39.2 Doing well, great supportMoo d stableEPDS 0POP Surveillan ce of contraception 981080987 Z30.40 Health Concerns Section Related Observation LastModified by Organization Detai ls LastModified Time None Recorded Concern Status LastModified by Organization Details LastModified Time None Recorded Advance Directives Directive None Recorded Payers Encounter Date Sequence Insurance Name Policy Number Policy Li Covered Member ID Li Member ID Guarantor Name 06/14/2022 1 [place] [id number] Karina A Bodiford [id number] Karina Fallon 06/22/2022 1 [place] [id number] Karina A Bodiford [id number] Karina Fallon 06/30/2022 1 [place] [id number] Karina A Bodiford [id number] Karina Fallon 07/20/2022 1 [place] [id number] Karina A Bodiford [id number] Karina Fallon 09/01/2022 1 [place] [id number] Karina A Bodiford [id number] Karina Fallon Notes Date Note Type Note Provider Name and Address Organization Details Recorded Time 06/14/2022 text/html ___Eyaljose elias____ is here today for a routine OB visit. She is currently at _37.3____weeks gestation. She has no complaints or questions. She is taking vitamins. She has felt movement. She denies the presence of vaginal bleed, leaking fluid, abdominal cramps, nausea, vomiting. There are no identifiable risk factors for pre-term labor. Mariely Lam, [facility] [address] [facility], [place], [address], [facility] 06/16/2022 16:59:25 06/30/2022 text/html _Kraina_ is here today for a routine OB visit. She is currently at 39.5_weeks gestation. She has no complaints or questions. She is taking vitamins. She has felt movement. She denies the presence of vaginal bleed, leaking fluid, abdominal cramps, nausea, vomiting. There are no identifiable risk factors for pre-term labor. Mariely Lam CNM [address] [facility], [place], [address], [facility] 07/05/2022 08:36:32 07/20/2022 text/html Patient is being seen today for 2 wk post partumNo concerns Mariely Lam CNM [address] [facility], [place], [address], [facility] 07/20/2022 22:06:43 09/01/2022 text/html VisitReported bypatient.Onset/Noel ing:date of delivery: (07/06/2022) Quality:VAVD Context:feeding choice: breast Patient is here for visit with no concerns Mariely Lam CNM [address] [facility], [place], [address], [facility] 09/03/2022 14:45:05 OBGyn Episode Ob Episode Information Episode Created Date Number of Fetuses Patient Bloodtype Patient rh Status Prepregnancy Weight lbs Domestic Partner Domestic Partner Phone Father Name Domain Architect Status 12/21/19 22 1 B Negative Ty CLOSED Fetus Data First Name Last Name Admitted to NICU Weight (g) Sex Living Outcome Pediatric Complications Fetus ID Race Codes Race Delivery Type 3260.19 25 M Full Term [address]32[address] 2106-3 White Problems Problem Notes Problem Name Start Date End Date Resolution Snomed Code Not e COVID-[id number] will need growth US 12/21/2021 [id number] B-/RI/NRx 3/ GBS neg Blood group B Rh(D) negative [id number] Rhogam at 28 we eks Jaswinder Calculation Initial Jaswinder Date Initial Exam Date Initial Exam Provider Initial Ultrasound Date Last Menstrual Period Date Ultra Sound Weeks Gestation 07/09/2022 12/21/2021 12/21/2021 10/02/2021 12 Eighteen To Twenty Week Jaswinder Update Ultra Sound Date Fundal Height At Umbil Quickening Date Ultra Sound Latest Weeks Gestation Final Jaswinder Confirmed By Final Jaswinder Confirmed Date Final Jaswinder Date Ultra Sound Latest Days Gestation 0 ckabat 12/21/2021 07/02/20 22 0 Pre-my Flowsheet Flowsheet Date 12/21/2021 Flores Score Blood Edema Fundus Height Fundus Units Glucose Ketones Leukocytes Nitrite Labor Signs Protein Cervic Dilation Cervic Effacement Cervic Station Type Weight in lbs Pre/Post Dialysis Refused Weight 164.63713765911 BP Diastolic BP Location Tested BP Systolic BP Type 80 130 Fetus Heart Rate Present Fetus Movement Comments oriented to practice, emre sted in Centering Flowsheet Date 01/19/2022 Flores Score Blood Edema Fundus Height Fundus Units Glucose Ketones Leukocytes Nitrite Labor Signs Protein Cervic Dilation Cervic Effacement Cervic Station none none neg Type Weight in lbs Pre/Post Dialysis Refused Weight 162.513095925792 BP Diastolic BP Location Tested BP Systolic BP Type 72 128 Fetus Heart Rate Present A 144 Fetus Movement Comments Penta @ 20 weeks Flowsheet Date 02/17/2022 Flores Score Blood Edema Fundus Height Fundus Units Glucose Ketones Leukocytes Nitrite Labor Signs Protein Cervic Dilation Cervic Effacement Cervic Station none neg Type Weight in lbs Pre/Post Dialysis Refused With clothes 162.733505130167 BP Diastolic BP Location Tested BP Systolic BP Type 74 R arm 126 sitting Fetus Heart Rate Present Fetus Movement Comments Anatomy today 53%ile, comple te gender unk Flowsheet Date 04/16/2022 Flores Score Blood Edema Fundus Height Fundus Units Glucose Ketones Leukocytes Nitrite Labor Signs Protein Cervic Dilation Cervic Effacement Cervic Station 27 none none neg Type Weight in lbs Pre/Post Dialysis Refused Weight 161.892766706619 BP Diastolic BP Location Tested BP Systolic BP Type 72 L arm 116 sitting Fetus Heart Rate Present A 165 Fetus Movement A Yes Comments order for Rhogam and 3rd tri labs given Flowsheet Date 04/27/2022 Flores Score Blood Edema Fundus Height Fundus Units Glucose Ketones Leukocytes Nitrite Labor Signs Protein Cervic Dilation Cervic Effacement Cervic Station 30 none Type Weight in lbs Pre/Post Dialysis Refused Weight 171.181345304662 BP Diastolic BP Location Tested BP Systolic BP Type 70 120 Fetus Heart Rate Present A 140 Fetus Movement A Yes Comments Growth with 4D at next visit Centering topic- Labor and Flowsheet Date 05/11/2022 Flores Score Blood Edema Fundus Height Fundus Units Glucose Ketones Leukocytes Nitrite Labor Signs Protein Cervic Dilation Cervic Effacement Cervic Station 30 none Type Weight in lbs Pre/Post Dialysis Refused Weight 170.879552184671 BP Diastolic BP Location Tested BP Systolic BP Type 60 108 Fetus Heart Rate Present A 130 Fetus Movement A Yes Comments 4D todayCentering topic-Imme diate PP period and Flowsheet Date 05/25/2022 Flores Score Blood Edema Fundus Height Fundus Units Glucose Ketones Leukocytes Nitrite Labor Signs Protein Cervic Dilation Cervic Effacement Cervic Station none 35 [place] Gonzalez Type Weight in lbs Pre/Post Dialysis Refused Weight 171.716953972018 BP Diastolic BP Location Tested BP Systolic BP Type 72 112 Fetus Heart Rate Present A 137 Fetus Movement A Yes Comments some vannessa gonzalez, will inc rease hydration and reviewed PTL precautions and when to go to hospitalCentering topic care Flowsheet Date 06/08/2022 Flores Score Blood Edema Fundus Height Fundus Units Glucose Ketones Leukocytes Nitrite Labor Signs Protein Cervic Dilation Cervic Effacement Cervic Station trace 36 Type Weight in lbs Pre/Post Dialysis Refused Weight 176.106241635726 BP Diastolic BP Location Tested BP Systolic BP Type 68 118 Fetus Heart Rate Present A 130 Fetus Movement A Yes Comments GBS collected Flowsheet Date 06/14/2022 Flores Score Blood Edema Fundus Height Fundus Units Glucose Ketones Leukocytes Nitrite Labor Signs Protein Cervic Dilation Cervic Effacement Cervic Station 36 none none neg Type Weight in lbs Pre/Post Dialysis Refused Weight 175.732320707187 BP Diastolic BP Location Tested BP Systolic BP Type 60 110 sitting Fetus Heart Rate Present A 130 Fetus Movement A Yes Comments GBS neg Flowsheet Date 06/22/2022 Flores Score Blood Edema Fundus Height Fundus Units Glucose Ketones Leukocytes Nitrite Labor Signs Protein Cervic Dilation Cervic Effacement Cervic Station none 38 none Type Weight in lbs Pre/Post Dialysis Refused Weight 175.403661204493 BP Diastolic BP Location Tested BP Systolic BP Type 64 100 Fetus Heart Rate Present A 140 Fetus Movement A Yes Comments centering topic immediate po stpartum care after delivery Flowsheet Date 06/30/2022 Flores Score Blood Edema Fundus Height Fundus Units Glucose Ketones Leukocytes Nitrite Labor Signs Protein Cervic Dilation Cervic Effacement Cervic Station none 39 none 2cm 50% -3 Type Weight in lbs Pre/Post Dialysis Refused Weight 178.997112187731 BP Diastolic BP Location Tested BP Systolic BP Type 60 110 sitting Fetus Heart Rate Present A 140 Fetus Movement A Yes Comments IOL for 07/05 Flowsheet Date 07/20/2022 Flores Score Blood Edema Fundus Height Fundus Units Glucose Ketones Leukocytes Nitrite Labor Signs Protein Cervic Dilation Cervic Effacement Cervic Station Type Weight in lbs Pre/Post Dialysis Refused Weight 163.162072746705 BP Diastolic BP Location Tested BP Systolic BP Type 76 102 Fetus Heart Rate Present Fetus Movement Comments Flowsheet Date 09/01/2022 Flores Score Blood Edema Fundus Height Fundus Units Glucose Ketones Leukocytes Nitrite Labor Signs Protein Cervic Dilation Cervic Effacement Cervic Station Type Weight in lbs Pre/Post Dialysis Refused With clothes 161.910478624560 BP Diastolic BP Location Tested BP Systolic BP Type Fetus Heart Rate Present Fetus Movement Comments Menstrual History Last Menstrual Date Menses Monthly On Bcp Conception Prior Menses Frequency Hcg Plus Date Menarche Onset Age 1110/02/2021 Genetic Screening And Infection History Question Response Note Recent Travel History Outside of Country false Cystic Fibrosis false Any Other Genetic History false Dheeraj Disease false Other Infection History false Thalassemia (Turkmen, Azeri, Mediterranean, Or Background): MCV < 80 false Patient Or Baby's Father Had A Child With Defects Not Listed Above false Live With Someone With TB Or Exposed To TB false Patient's Age Will Be 35 Years Or Older At Estim ated Date of Delivery false Recurrent Loss, Or A Stillbirth false Hemoglobinopathy Or Carrier false Patient Or Partner Has History Of Genital Herpes false Intellectual Disability/Autism false Maternal Metabolic Disorder (eg, Type 1 Diabetes , PKU) false History of Hepatitis false Rafat-Sachs (eg, Moravian, Cajun, Nepali-Erie) f alse History Of STD, Gonorrhea, Chlamydia, HPV, Syphi lis false Prior GBS-infected child false History of HIV false Personal or Family History o f Neural Tube Defect (Meningomyelocele, Spina Bifida, Or Anencephaly) false Hemophilia Or Other Blood Disorders false Mental Retardation/Autism false [place]'s Chorea false If Yes, Was Person Tested For Fragile X? false Other Inherited Genetic Or Chromosomal Disorder false If Yes, Agent(s) And Strength/Dosage false Sickle Cell Disease Or Trait () false Personal or Family History of Congenital Heart D efect false Rash Or Viral Illness Since Last Menstrual Perio d false Muscular Dystrophy false Medications (including Suppl ements, Vitamins, Herbs, OTC Drugs), Illicit/Recreational Drugs, Alcohol false Other Structural Defect false Down Syndrome false Delivery Information Delivery Date Delivery Type Labor Anesthesia Weeks Gestation Incision Type Labor Labor Length Hrs Delivered By Post Complications Tubal Sterilization Discharge Date Comments 2 40.4 Mariely Quinn CNM Discharge Information Feeding Method Contraceptive Method Maternal HG B and HCT Levels Breast POP
--- OUTSIDE RECORDS SUMMARY | 2025-01-12 18:17 | XMS_ITS | Clinical Summary ---
Author Organization [facility] [address] [place] Address [address] [place] [phone] Care Team Providers Care Radiology Resident Name Role Phone Unknown, Notinfile Primary Care [...] 21 Assessment & Plan (11/19/2021 8:28 AM FUEL ATTENDANT): -amoxicillin 500 b.i.d. -continue the loratadine -continue to Tylenol -drink plenty of fluids -notify your provider if you do not improve Arthralgia of elbow 03/18/2013 Arthralgia of shoulder 12/06/2012 Social History Tobacco Use Types Packs/Day Years Used Date Smoking Tobacco: Never Comments Unknown Sex and Gender Information Value Date Recorded Sex Assigned at Not on file Legal Sex Female 6:53 AM FUEL ATTENDANT Gender Identity Not on file Sexual Orientation [...] patient's age to complete this topic Insurance [employer] ACCESS [employer] OPEN ACCESS Care Teams Radiology Resident Relationship Specialty Start Date End Date Unknown, Notinfile PCP - General 04/24/24 Adan Huitron DO Family Medicine 04/24/24
--- OUTSIDE RECORDS SUMMARY | 2025-01-12 18:17 | XMS_ITS | Encounter Summary ---
Author Organization [facility] Address [address] [place] [address] Care Team Providers Care Brakes Inspector Name Role Phone Adan Huitron DO Primary Care Provider [phone] Adan Huitron DO Primary Care Provider [phone] Maria G Kuhn Primary Care Provider + Connie Raza DO Primary Care Provider + [phone] Adan Huitron DO Unavailable [phone] Maria G Kuhn Unavailable [phone] Maria G Kuhn Primary Care Provider + Encounter Details Date Type Department Care Team (Late st Contact Info) Description 02/18/2022 MyCNo.1 Travellert Message Enc [facility] Family Medicine - [place] [address] [facility], [address] [place] [id number] Adan Huitron DO [address] [facility] [address] [place], [place] [id number] Pressure behind Right eye Social History Tobacco Use Types Packs/Day Years Used Date Smoking Tobacco: Never Smokeless Tobacco: Never Comments:The provider can pr ovide you with more information about quitting. Alcohol Use Standard Drinks/Week Comments No 0 (1 standard drink = 0.6 oz pur e alcohol) AUDIT-C Answer Date Recorded Frequency of Alcohol Consumption Never 12/05/2019 Average Number of Drinks Not on file 020 Frequency of Binge Drinking Not on file 07/2020 PHQ-2 Answer Date Recorded PHQ-2 Score - If the patient scores above 3, please move on to questions 3-9 0 09/13/2021 Comments Yes Sex and Gender Information Value Date Recorded Sex Assigned at Not on file Legal Sex Female 4:31 PM CDT Gender Identity Not on file Sexual Orientation Not on file documented as of this encounter Plan of Treatment Not on file documented as of this encounter Visit Diagnoses Not on filedocumented in this encounter Additional Health Concerns Assessment Noted Time PHQ-9 Depression Total Score: 2 09/13/20 21 11:56 AM CDT documented as of this encounter Care Teams Brakes Inspector Relationship Specialty Start Date End Date Adan Huitron DO PCP - General FAMILY PRACTICE 11/28/19 07/05/22 Adan Huitron DO PCP - General FAMILY PRACTICE 07/06/22 10/25/22 Maria G Kuhn APNP [address] [place] [address] PCP - General NURSE PRACTITIONER 10/26/22 11/28/22 Connie Raza DO [address] [place] [address] PCP - General FAMILY PRACTICE 11/29/22 03/01/23 Maria G Kuhn APNP [address] [place] [address] PCP - General NURSE PRACTITIONER 03/02/23 Adan Huitron DO FAMILY PRACTICE 07/06/22 11/15/22 Maria G Kuhn APNP [address] [place] [address] NURSE PRACTITIONER 03/02/23 03/02/23 documented as of this encounter
--- OUTSIDE RECORDS SUMMARY | 2025-01-12 18:17 | XMS_ITS | Referral Summary ---
Author Organization [facility] [address] Address [address] [place] [phone] Care Team Providers Care Acls Nurse Name Role Phone Unknown, Notinfile Primary Care [...] 21 Assessment & Plan (11/19/2021 8:28 AM EXPANSION JOINT BUILDER): -amoxicillin 500 b.i.d. -continue the loratadine -continue to Tylenol -drink plenty of fluids -notify your provider if you do not improve Arthralgia of elbow 03/18/2013 Arthralgia of shoulder 12/06/2012 Social History Tobacco Use Types Packs/Day Years Used Date Smoking Tobacco: Never Comments Unknown Sex and Gender Information Value Date Recorded Sex Assigned at Not on file Legal Sex Female 6:53 AM EXPANSION JOINT BUILDER Gender Identity Not on file Sexual Orientation [...] Plan of Treatment Not on file Insurance [employer] OOS [employer] OPEN ACCESS [employer] OPEN ACCESS Care Teams Acls Nurse Relationship Specialty Start Date End Date Unknown, Notinfile PCP - General 04/24/24 Adan Huitron DO Family Medicine 04/24/24
--- OUTSIDE RECORDS SUMMARY | 2025-01-12 18:17 | XMS_ITS | Encounter Summary ---
Author Organization [facility] Address [facility] [place] [address] Care Team Providers Care Comic Book Designer Name Role Phone Connie Raza DO Primary Care Provider [phone] Maria G Kuhn Unavailable [phone] Maria G Kuhn Primary Care Provider [phone] Encounter Details Date Type Department Care Team (Late st Contact Info) Description 01/04/2023 MyCMaestranot Message Enc [facility] Family Medicine - [place] [id number] [facility], [address] [place] [address] Connie Raza DO [address] [place] [address] Eye Social History Tobacco Use Types Packs/Day Years [...] Recorded Patient Health Questionnaire-2 Score 0 11/30/2022 Comments No Sex and Gender Information Value Date Recorded Sex Assigned at Not on file Legal Sex Female 4:31 PM CDT Gender Identity Not on file Sexual Orientation Not on file documented as of this encounter Functional Status * RETIRED Are you deaf or do you have serious difficulty hearing Answer Date of Assessment Author Status No 07/06/2022 8:39 AM CDT Activ e * RETIRED Are you blind or do you have serious difficulty seeing, even when wearing glasses? Answer Date of Assessment Author Status No 07/06/2022 8:39 AM CDT Activ e * Do you have serious difficulty walking or climbing stairs? Answer Date of Assessment Author Status No 07/06/2022 8:39 AM SHAZIAT Brooke Pérez RN Active * Do you have difficulty dressing or bathing? Answer Date of Assessment Author Status No 07/06/2022 8:39 AM Brooke Cornelius RN Active * Because of a physical, mental, or emotional condition, do you have difficulty doing errands alone such as visiting a doctor's office or shopping? Answer Date of Assessment Author Status No 07/06/2022 8:39 AM Brooke Cornelius RN Active documented as of this encounter Mental Status * Because of a physical, mental, or emotional condition, do you have serious difficulty concentrating, remembering, or making decisions? Answer Entry Date Author Status No 07/06/2022 8:39 AM Brooke Cornelius RN Active documented in this encounter Plan of Treatment Not on file documented as of this encounter Visit Diagnoses Not on filedocumented in this encounter Additional Health Concerns Assessment Noted Time PHQ-9 Depression Total Score: 1 11/30/19 7:53 AM CAR KNOCKER documented as of this encounter Care Teams Comic Book Designer Relationship Specialty Start Date End Date Connie Raza DO [address] [place] [address] PCP - General FAMILY PRACTICE 11/29/22 03/01/23 Maria G Kuhn APNP [address] [place] [address] PCP - General NURSE PRACTITIONER 03/02/23 Maria G Kuhn APNP [address] [place] [address] NURSE PRACTITIONER 03/02/23 03/02/23 documented as of this encounter
--- OUTSIDE RECORDS SUMMARY | 2025-01-12 18:17 | XMS_ITS | Encounter Summary ---
Author Organization [facility] Address [address] [place] [address] Care Team Providers Care Medical Device Sales Consultant Name Role Phone Maria G Kuhn Primary Care Provider [phone] Encounter Details Date Type Department Care Team (Late st Contact Info) Description 05/09/2024 [employer] Message Enc [facility] Family and Sports Medicine - [place] [address] [place] [address] Maria G Kuhn APNP [address] [place] [address] Yearly Visit Reminder Social History Tobacco Use Types Packs/Day Years [...] 8:39 AM Brooke Cornelius RN Active * Do you have difficulty [...] Depression Total Score: 1 11/30/19 7:53 AM QUALIFICATIONS EXAMINER documented as of this encounter Care Teams Medical Device Sales Consultant Relationship Specialty Start Date End Date Maria G Kuhn APNP [address] [place] [address] PCP - General NURSE PRACTITIONER 03/02/23 documented as of this encounter
[2025-01-12] MEDS: TERBUTALINE SULFATE 1 MG/ML VIAL 0.25 MG SUB-Q ×2 (19:01→20:03)
[2025-01-12 19:07] LABS: Add Urine Microscopic? YES; Appearance Urine Cloudy (Clear); Bacteria Urine None Seen /hpf; Bilirubin Urine Negative (Negative); Blood Urine Negative (Negative); Color Urine Dark Yellow (Yellow); Glucose Urine UA Negative (Negative); Ketones Urine Negative (Negative); Leukocyte Esterase Ur Negative LEU/UL (Negative); Nitrate Urine Negative (Negative); Non Pathogenic Casts 0-2; Protein Urine Trace mg/dL (Negative); RBC Urine 0-2 /hpf (0-2); Specific Grav Ur 1.012 (1.001-1.035); Squamous Epithelial Cell Urine None Seen /hpf (Few); Urobilinogen Urine 0.2 mg/dL (<2.0); WBC Urine 0-5 /hpf (0-3)
[2025-01-12] MEDS: LACTATED RINGERS 1,000 ML 999 ML IV CONT (19:15)
[2025-01-12] MEDS: BETAMETHASONE SOD PHOS/ACETATE 30 MG/5 ML VIAL 12 MG IM (19:17)
[2025-01-12 19:29] LABS: Hematocrit 32.6 % (37.0-47.0); Hemoglobin 11.1 g/dL (12.0-15.0); Mean Corpuscular Hemoglobin 32.6 pg (26-34); Mean Corpuscular Volume 95.6 fl (80-100); Mean Platelet Volume 9.1 fl (7.4-10.4); Platelet Count Result 230 k/mm3 (150-375); Red Blood Count 3.41 M/mm3 (4.2-5.4); Red Cell Distribution Width 13.3 % (11.5-14.5); White Blood Count 15.4 K/mm3 (4.5-10.0)
[2025-01-12 19:48] LABS: Sodium 136 mmol/L (137-145)
[2025-01-12 19:51] LABS: Alanine Aminotransferase 57 U/L (6-35); Albumin Level 3.4 g/dL (3.5-5.1); Alkaline Phosphatase 304 U/L (38-126); Anion Gap 11 mmol/L (4-12); Aspartate Amino Transferase 49 U/L (14-36); Bilirubin,Total 1.6 mg/dL (0.2-1.3); Blood Urea Nitrogen 6 mg/dL (7-17); Calcium 8.9 mg/dL (8.4-10.2); Carbon Dioxide 20 mmol/L (22-30); Chloride 105 mmol/L (98-107); Estimated Glomerular Filt Rate > 60; Glucose 117 mg/dL (65-110); Potassium 3.5 mmol/L (3.4-5.0)
--- NOTE | 2025-01-12 20:20 | OBADM ---
This patient, Karina Fallon, admitted to the OB room OB Post 116 for observation. Patient/family oriented to hospital policies and general routines including ID bracelet, bed and alarms, visiting hours, pain management, procedures, bathroom and other care routines, personal items, smoking policy, room service/diet, and visiting hours. Patient/Family are encouraged to report perceived risks to care and to ask questions if they do not understand what they are told or what they should do.
[2025-01-12] MEDS: NIFEdipine 10 MG CAPSULE 20 MG PO (21:43)
[2025-01-12] MEDS: LACTATED RINGERS 1,000 ML 250 ML IV CONT (21:43)
[2025-01-12] MEDS: AMPICILLIN 2 GM/NS 100 ML 2 GM/100 ML BAG IVPB (21:44)
--- OUTSIDE RECORDS SUMMARY | 2025-01-12 21:45 | XMS_ITS | Encounter Summary ---
Author Organization [facility] Address [address] [place] [address] Care Team Providers Care Naval Aircrewman Helicopter Name Role Phone Maria G Kuhn Primary Care Provider [phone] Encounter Details Date Type Department Care Team (Late st Contact Info) Description 05/09/2024 [employer] Message Enc [facility] Family and Sports Medicine - [place] [address] [place] [address] Maria G Kuhn APNP [address] [place] [address] Yearly Visit Reminder Social History Tobacco Use [...] Depression Total Score: 1 11/30/19 7:53 AM COOPERATIVE MANAGER documented as of this encounter Care Teams Naval Aircrewman Helicopter Relationship Specialty Start Date End Date Maria G Kuhn APNP [address] [place] [address] PCP - General NURSE PRACTITIONER 03/02/23 documented as of this encounter
--- OUTSIDE RECORDS SUMMARY | 2025-01-12 21:45 | XMS_ITS | Referral Summary ---
Author Organization [facility] [address] [place] Address [address] [place] [phone] Care Team Providers Care Staff Physician Name Role Phone Unknown, Notinfile Primary Care [...] 21 Assessment & Plan (11/19/2021 8:28 AM GRAIN OPERATIONS MANAGER): -amoxicillin 500 b.i.d. -continue the loratadine -continue to Tylenol -drink plenty of fluids -notify your provider if you do not improve Arthralgia of elbow 03/18/2013 Arthralgia of shoulder 12/06/2012 Social History Tobacco Use Types Packs/Day Years Used Date Smoking Tobacco: Never Comments Unknown Sex and Gender Information Value Date Recorded Sex Assigned at Not on file Legal Sex Female 6:53 AM GRAIN OPERATIONS MANAGER Gender Identity Not on file Sexual Orientation [...] Plan of Treatment Not on file Insurance [employer] OOS [employer] OPEN ACCESS [employer] OPEN ACCESS Care Teams Staff Physician Relationship Specialty Start Date End Date Unknown, Notinfile PCP - General 04/24/24 Adan Huitron DO Family Medicine 04/24/24
--- OUTSIDE RECORDS SUMMARY | 2025-01-12 21:45 | XMS_ITS | Encounter Summary ---
Author Organization [facility] Address [address] [place] [address] Care Team Providers Care Wheat Combine Driver Name Role Phone Adan Huitron DO Primary Care Provider [phone] Adan Huitron DO Primary Care Provider [phone] Maria G Kuhn Primary Care Provider + Connie Raza DO Primary Care Provider + [phone] Adan Huitron DO Unavailable [phone] Maria G Kuhn Unavailable [phone] Maria G Kuhn Primary Care Provider + Encounter Details Date Type Department Care Team (Late st Contact Info) Description 02/18/2022 MyCMahalot Message Enc [facility] Medical [facility] Family Medicine - [place] [address] [facility], [address] [place] [phone] Adan Huitron DO [address] [facility] [address] [place], [place] [phone] Pressure behind Right eye Social History Tobacco [...] documented as of this encounter Care Teams Wheat Combine Driver Relationship Specialty Start Date End Date Adan Huitron DO PCP - General FAMILY PRACTICE 11/28/19 07/05/22 Adan Huitron DO PCP - General FAMILY PRACTICE 07/06/22 10/25/22 Maria G Kuhn APNP [address] [place] [address] PCP - General NURSE PRACTITIONER 10/26/22 11/28/22 Connie Raza DO [address] [place] [address] PCP - General FAMILY PRACTICE 11/29/22 03/01/23 Maria G Kuhn APNP [address] [place] [address] PCP - General NURSE PRACTITIONER 03/02/23 Adan Huitron DO FAMILY PRACTICE 07/06/22 11/15/22 Maria G Kuhn APNP [address] [place] [address] NURSE PRACTITIONER 03/02/23 03/02/23 documented as of this encounter
--- OUTSIDE RECORDS SUMMARY | 2025-01-12 21:45 | XMS_ITS | Clinical Summary ---
Author Organization [facility] Address [facility] [address] Care Team Providers Care Software Engineer Web Applications Name Role Phone Maria G Kuhn Primary Care Provider [phone] Allergies Active Allergy Reactions Criticality Noted Date [...] Problem Noted Date Diagnosed Date Vaginal delivery ([facility]) 07/08/2022 ([facility]) 10/28/2021 Seasonal allergic rhinitis due to pollen 020 Arthralgia of shoulder 12/06/2012 Resolved Problems Problem Noted Date Diagnosed Date Resolved Date ([facility]) 07/06/2022 07/08/20 22 Immunizations Name Administration Dates [...] CDT Respiratory Rate 18 11/30/2022 7:49 AM DIRECTOR OF COMMUNICATIONS Oxygen Saturation 98% 11/30/2022 7:49 AM DIRECTOR OF COMMUNICATIONS Inhaled Oxygen Concentration - - Weight 72.6 kg (160 lb) 03/02/2023 9:24 AM CDT Height 166.4 cm (5' 5.5 ) 03/02/2023 9:24 AM CDT Body Mass Index 26.22 03/02/2023 9:24 AM CDT Plan of Treatment Health Maintenance Due Date Last Done Comments PHQ-2 ([facility]) 2009 Hepatitis C 2015 Cervical Cancer Screening Pap Smear (Age 21 to 29) Every 3 Years 09/04/2023 09/04/2020, 09/04/2020 Cervical Cancer Screening 09/04/2023 Annual Physical 03/02/2024 03/02/2023, 02/2023, 12/05/2019 COVID-19 Vaccine ( season) 2024 02/02/2021 Influenza Adult (#1) 2024 11/30/2022, 09/13/2021, 09/04/2020, Additional history exists PHQ-2 ([facility]) 11/27/2024 DTaP, Tdap and Td Vaccines (8 [...] Layer (09/04/2020 12:00 AM CDT) COPATH REPORT [place] [phone] Department of Pathology Pathology Report Gynecological Cytology Report Patient Name: KARINA MUNIZ : 1995 (Age: 25) Location: [facility] Gender: F Collected Date: 09/04/2020 Med Rec #: [id number] Date Received: 09/08/2020 Date Reported: 09/14/2020 Provider: DEWAYNE HUITRON DO Final Cytologic Diagnosis Satisfactory for evaluation. Endocervical component present. Negative for Intraepithelial Lesion or Malignancy. High-risk HPV mRNA E6/E7 by Aptima assay (performed at [employer]) is reported as NOT DETECTED (see separate report for details). Electronically Signed Out By Sudhir Bashir Source of Specimen(s) Cervical/Endocervi isabell - Thin Prep Clinical History Screening, last Pap not provided. Z12.4 Date of Last Menstrual Period: June 2020 Billing Fee Code(s): A: 25864 [facility] (B) [facility] 09/04/2020 09/08/2020 8:3 9 AM CDT Comment:CERVICAL/ENDOCERVICA L - THIN PREP Dewayne Huitron DO PATHOLOGY/CYTOLOGY ORDERABLES Final Result [facility] [address] [place] [address], [place] [phone] from Last 3 Months or Most Recently Relevant to Health Maintenance Insurance [email or web address] Member Subscriber Plan / Payer (Ef fective 2021-Present) Name:Karina Fallon Relation to Subscriber:Self Name:Karina Fallon Payer ID:Not on file Type:Not on file Address: [place] [phone] [employer] [facility] Advance Directives * Full Code (Latest Code Status on File) Date Activated Date Inactivated Comments 07/06/2022 7:04 AM 07/08/2022 7:57 PM Care Teams Software Engineer Web Applications Relationship Specialty Start Date End Date Maria G Kuhn APNP [address] [place] [address] PCP - General NURSE PRACTITIONER 03/02/23
--- OUTSIDE RECORDS SUMMARY | 2025-01-12 21:45 | XMS_ITS | Clinical Summary ---
Author Organization [facility] [address] Address [address] [place] [id number] Care Team Providers Care Sound Mixer Name Role Phone Unknown, Notinfile Primary Care [...] 21 Assessment & Plan (11/19/2021 8:28 AM DENTURE TECHNICIAN): -amoxicillin 500 b.i.d. -continue the loratadine -continue to Tylenol -drink plenty of fluids -notify your provider if you do not improve Arthralgia of elbow 03/18/2013 Arthralgia of shoulder 12/06/2012 Social History Tobacco Use Types Packs/Day Years Used Date Smoking Tobacco: Never Comments Unknown Sex and Gender Information Value Date Recorded Sex Assigned at Not on file Legal Sex Female 6:53 AM DENTURE TECHNICIAN Gender Identity Not on file Sexual Orientation [...] patient's age to complete this topic Insurance [email or web address] ACCESS [employer] OPEN ACCESS Care Teams Sound Mixer Relationship Specialty Start Date End Date Unknown, Notinfile PCP - General 04/24/24 Adan Huitron DO Family Medicine 04/24/24
--- OUTSIDE RECORDS SUMMARY | 2025-01-12 21:45 | XMS_ITS | Encounter Summary ---
Author Organization [facility] Address [facility] [place] [address] Care Team Providers Care Data Recovery Planner Name Role Phone Connie Raza DO Primary Care Provider [phone] Maria G Kuhn Unavailable [phone] Maria G Kuhn Primary Care Provider [phone] Encounter Details Date Type Department Care Team (Late st Contact Info) Description 01/04/2023 [email or web address] Message Enc [facility] Family Medicine - [place] [id number] [facility], [address] [place] [address] Connie Raza DO [address] [place] [address] Eye Social History Tobacco Use [...] Depression Total Score: 1 11/30/19 7:53 AM JIG MILL OPERATOR documented as of this encounter Care Teams Data Recovery Planner Relationship Specialty Start Date End Date Connie Raza DO [address] [place] [address] PCP - General FAMILY PRACTICE 11/29/22 03/01/23 Maria G Kuhn APNP [address] [place] [address] PCP - General NURSE PRACTITIONER 03/02/23 Maria G Kuhn APNP [address] [place] [address] NURSE PRACTITIONER 03/02/23 03/02/23 documented as of this encounter
--- OUTSIDE RECORDS SUMMARY | 2025-01-12 21:45 | XMS_ITS | Encounter Summary ---
Author Organization [facility] Address [address] [place] [address] Care Team Providers Care Customer Expert Name Role Phone , Generic Dex LORA Primary Care Provider Unavailable Adan Huitron DO Primary Care Provider [phone] Adan Huitron DO Primary Care Provider + Poirot, Maria G APNP Primary Care Provider + RyConnie carter DO Primary Care Provider + [phone] Adan Huitron DO Unavailable + [phone] Poirot, Maria G APNP Unavailable + [phone] Poirot, Maria G APNP Primary Care Provider + Encounter Details Date Type Department Care Team (Late st Contact Info) Description 09/30/2017 [place] [address] , Generic ConversionMD Social History Tobacco Use [...] documented as of this encounter Care Teams Customer Expert Relationship Specialty Start Date End Date Tangela Lora MD PCP - General 01/01/16 Adan Huitron DO PCP - General FAMILY PRACTICE 11/28/19 07/05/22 Adan Huitron DO PCP - General FAMILY PRACTICE 07/06/22 10/25/22 Maria G Kuhn APNP [address] [place] [address] PCP - General NURSE PRACTITIONER 10/26/22 11/28/22 [place] [address] [place] [id number] PCP - General FAMILY PRACTICE 11/29/22 03/01/23 Maria G Kuhn APNP [address] [place], [place] [id number] PCP - General NURSE PRACTITIONER 03/02/23 Adan Huitron DO FAMILY PRACTICE 07/06/22 11/15/22 Maria G Kuhn APNP [address] [place], [place] [phone] NURSE PRACTITIONER 03/02/23 03/02/23 documented as of this encounter
--- NOTE | 2025-01-12 22:10 | PM.TDS ---
Transfer Discharge Sum: Prov Provider Date of admission: 01/12/25 18:12 Primary care physician: FRANCHISE CONSULTANT PHYSICIAN Admitting clinician: Lalita Claudio MD Anticipated date of transfer: 01/12/25 Receiving physician/facility: [facility] Maternal Medicine Team DS: Admitting Diagnosis Discharge Date 01/12/25 Admitting Diagnosis labor DS: Discharge Diagnosis Discharge Diagnosis (1) labor in third trimester: Code(s): O60.03 - labor without delivery, third trimester Status: Acute Transfer Discharge Sum: Med Medications Active and Home Medications: Home Medications metoclopramide HCl 10 mg tablet (Reglan) 10 mg PO Q6H PRN nausea and vomiting #40 tabs 07/18/24 [Rx Confirmed 01/12/25] vits no.126-ferrous fum 28 mg iron-folic acid 800 mcg tablet (Classic ) 1 tablet PO DAILY 08/21/24 [History Confirmed 01/12/25] ferrous sulfate 325 mg (65 mg iron) tablet 325 mg PO .QOD 12/09/24 [History Confirmed 01/12/25] magnesium oxide 200 mg PO DAILY 12/23/24 [History Confirmed 01/12/25] omega 6-ego-fnq-fish oil 1,200 mg (144 mg-216 mg) capsule (Fish Oil) 1 cap PO DAILY 12/23/24 [History Confirmed 01/12/25] RSV vac, preF A and preF B(PF) 120 mcg/0.5 mL IM solution (Abrysvo (PF)) 0.5 ml IM ONCE #1 ea 12/27/24 [Rx Confirmed 01/12/25] Active Medications Lactated Ringer's (Lr - Lactated Ringers Iv) 1,000 mls @ 250 mls/hr IV CONT .Q4H [facility] Last Admin: 01/12/25 21:43 Dose: 250 mls/hr Ampicillin Sodium (Ampicillin 1 Gm/Ns 50 Ml) 1 gm in 50 mls @ 100 mls/hr IVPB Q4H SERGEI Nifedipine (Nifedipine 10 Mg Capsule) 10 mg PO Q6HR [facility] Transfer Discharge Sum: Hosp Hospital Course Hospital course: Karina Fallon is a 29 yo @ 34.4wks who presented with painful contractions after intercourse. At 31wks she had painful contractions and was 2/50/-3. On admission today, she was found to be 3/75/-2. She was found to be tanvi. She was started on IV fluids and given Terb x2 doses. She was given betamethasone @ 1930. She was monitored and contractions initially spaced out. She was then found to be 4/75/-2 with irritability and occasional contractions. She was started on GBS ppx and give a dose of Procardia 20mg @ 2143. She has had no complications this ; has a h/o uncomplicated in a prior at 40w6d. She is Rh negative but received rhogam @ 28wks. Dr. Lea from [facility] accepted pt to be transferred by maternal transport team @ 0262. Time Spent with Patient Time attestation: Total time spent providing and/or coordinating transfer services: Exam Const: General: cooperative, healthy appearing, comfortable and no acute distress Resp: Effort & Inspection: normal respiratory effort Cardio: Rate: regular rate GI: Inspection: normal to inspection GI Palp: No abdominal tenderness : Other: FHT's: 140's/ mod michael/ + accels/ no decels - cat 1 TOCO: irritability; occasional contraction Cervix: 4/75/-2 presentation: cephalic membranes: intact Skin: General skin exam: normal color Neuro: General: oriented to person, oriented to place and oriented to time Extrem: General: normal to inspection Psych: Appearance: grossly normal Affect: normal affect Attitude: cooperative DS: Data Data Completed and Pending Labs on day of discharge: Labs from last 24 hours 01/12/25 01/12/25 01/12/25 21:41 18:54 18:39 WBC 15.4 H RBC 3.41 L Hgb 11.1 L Hct 32.6 L MCV 95.6 MCH 32.6 MCHC 34.0 RDW 13.3 Plt Count 230 MPV 9.1 Sodium 136 L Potassium 3.5 Chloride 105 Carbon Dioxide 20 L Anion Gap 11 BUN 6 L Creatinine 0.31 L Estim Creat Clear Calc Not Reportable Estimated GFR > 60 Glucose 117 H Calcium 8.9 Total Bilirubin 1.6 H AST 49 H ALT 57 H Alkaline Phosphatase 304 H Total Protein 7.0 Albumin 3.4 L Urine Color Dark yellow Urine Appearance Cloudy H Urine pH 7.0 Ur Specific [place] 1.012 Urine Protein Trace Urine Glucose (UA) Negative Urine Ketones Negative Ur Blood (Man) Negative Urine Nitrate Negative Urine Bilirubin Negative Urine Urobilinogen 0.2 Leukocyte Esterase Rfl Negative Urine RBC 0-2 Urine WBC 0-5 Ur Squamous Epith Cells None seen Urine Bacteria None seen Urine Casts 0-2 RPR Pending HIV 1&2 Ab/P24 Ag 4thGn Pending
[2025-01-12 22:32] LABS: Rapid Plasma Reagin Non-Reactive (NonReactive)
[2025-01-12 22:51] LABS: HIV 1/2 Ab P24 Ag Result Negative (Negative)
--- OUTSIDE RECORDS SUMMARY | 2025-01-13 14:47 | XMS_ITS | Encounter Summary ---
Author Organization [facility] Address [address] [place] [address] Care Team Providers Care Silk Screen Printer Machine Name Role Phone Unknown, Notinfile Primary Care Provider Unavail able Adan Huitron DO Unavailable Encounter Details Date Type Department Care Team (Late st Contact Info) Description 01/13/2025 6:59 AM HEALTH ADVISOR Anesthesia Event [address] [phone] Argentina Rodriguez MD [address] [facility] [address] [place] [address] Anesthesia Record Procedure Summary Procedure Name Responsible Anesthesiologist Anesthesia Start Time Anesthesia Stop Time Labor Analgesia Events No events on file. Meds * Agents No agents on file. * Blood No blood administrations on file. Lines, Drains, and Airways Type Details Placement Removal Peripheral IV Placement Date: 12/28 06/20; Placement Time: 0000; Existing LDA Placed by: Other hospital; Catheter Size: 20 G; Orientation: Anterior, Distal, Left; Location: Forearm; Inserted by: OSH 01/13/25 0000 by Sharla Delgado RN documented in this encounter Social History Tobacco Use Types Packs/Day Years Used Date Smoking Tobacco: Never Social Connection and Isolat ion Panel [NHANES] Answer Date Recorded In a typical week, how many times do you talk on the phone with family, friends, or neighbors? More than three times a week 01/13/2025 How often do you get togethe r with friends or relatives? Three times a week 01/13/2025 How often do you attend chur ch or confucianism services? 1 to 4 times per year 01/13/2025 Do you belong to any clubs o r organizations such as mandaen groups, unions, fraternal or athletic groups, or school groups? No 01/13/2025 How often do you attend meet ings of the clubs or organizations you belong to? Never 01/13/2025 Are you , , di vorced, , never , or living with a partner? 01/13/2025 Overall Financial Resource Strain (CARDIA) Answe r Date Recorded How hard is it for you to pa y for the very basics like food, housing, medical care, and heating? Not hard at all 01/13/2025 Hunger Vital Sign Answer Date Recorded Within the past 12 months, y ou worried that your food would run out before you got the money to buy more. Never true 01/13/20 25 Within the past 12 months, t he food you bought just didn't last and you didn't have money to get more. Never true 01/13/2025 PRAPARE - Transportation Answer Date Re corded In the past 12 months, has l ack of transportation kept you from medical appointments or from getting medications? No 12/28 In the past 12 months, has l ack of transportation kept you from meetings, work, or from getting things needed for daily living? No 01/13/2025 Housing Stability Vital Sign Answer Roe e Recorded In the last 12 months, was t here a time when you were not able to pay the mortgage or rent on time? No 01/13/2025 In the past 12 months, how m any times have you moved where you were living? 0 01/13/2025 At any time in the past 12 m [facility], were you homeless or living in a retirement (including now)? No 01/13/2025 Personal Safety Answer Date Recorded Have you ever been in or are you currently in a harmful physical or emotional relationship or is someone making you feel afraid or unsafe? Denies 01/13/2025 Estimated Date of Delivery Comme nts Yes 02/19/2025 Based on Other B asis, patient reported based on LMP=1st trimester ultrasound (~11w) Sex and Gender Information Value Date Recorded Sex Assigned at Not on file Legal Sex Female 6:53 AM HEALTH ADVISOR Gender Identity Not on file Sexual Orientation Not on file documented as of this encounter OR Notes * Anesthesia Preprocedure Evaluation - Elisa Hardin MD - 01/13/2025 7:20 AM HEALTH ADVISOR Images from the original note were not included. Anesthesia Evaluation Karina Fallon is a 29 y.o. female Labor Analgesia * No Diagnosis Codes entered * HISTORY HPI Karina Fallon is a 29 y.o. female at 34w5d gestation who [facility]. Past Medical History Neurological Neuro/Psych system: negative Cardiovascular Cardiac system: negative Respiratory Respiratory system: negative Hepatic / Heme Hepatic/Heme system: negative Gastrointestinal GI system: negative Renal / Renal/ system: negative Musculoskeletal/Pain Musculoskeletal/Pain system: negative Endocrine / Other Endocrine/Other system: negative Functional Capacity Functional capacity: 4-6 METs Review of Systems Pertinent negatives: productive cough; SOB and fever Patient Active Problem List Diagnosis Date Noted Threatened labor, third trimester 01/13/2025 Acute non-recurrent maxillary sinusitis 11/19/2021 Arthralgia of elbow 03/18/2013 Arthralgia of shoulder 12/06/2012 No past medical history on file. No past surgical history on file. OB History 2 Para 1 Term 1 0 AB 0 Living 1 SAB 0 IAB 0 Ectopic 0 Multiple Live Births 1 Allergies Allergen Reactions Benzoyl Peroxide-Aloe Vera Hives Benzoyl Peroxide-Sulfur Itching and Rash Mold Other (See comments) Unknown Taking? Last Dose Start Date End Date Provider fexofenadine (JOSE) 60 mg tablet -- -- -- Shoaib Henning MD fish oil-dha-epa 1,200-144-216 mg capsule -- -- -- Shoaib Henning MD loratadine (CLARITIN) 10 mg tablet -- -- -- Shoaib Henning MD multivitamin tablet -- -- -- Shoaib Henning MD 123/iron/folic/omeg3s (ONE-A-DAY WOMEN'S 1 ORAL) -- 11/01/21 -- Shoaib Henning MD Flag for Review Taking? Last Dose Start Date End Date Provider ofloxacin (OCUFLOX) 0.3 % ophthalmic solution -- 04/24/24 -- Diandra Jason, JOSSELYN instill 2 drops in left eye every 4 hours for 2 days, then 2 drops 4 times daily on days 3 through 7 Current Facility-Administered Medications: acetaminophen (TYLENOL) tablet 1,000 mg, 1,000 mg, oral, Q6H PRN betamethasone (CELESTONE) injection 12 mg, 12 mg, intramuscular, Once calcium carbonate (TUMS) chewable tablet 500 mg, 500 mg, oral, QID PRN Carrier Fluids for Secondary Infusion - 0.9% Sodium Chloride, 30 mL, intravenous, PRN Lactated Ringer's (LR) bolus 1,000 mL, 1,000 mL, intravenous, TID PRN ondansetron ODT (ZOFRAN-ODT) disintegrating tablet 4 mg, 4 mg, oral, Q6H PRN OR ondansetron (ZOFRAN) injection 4 mg, 4 mg, intravenous, Q6H PRN PNV with hzocnah-djot-WT tablet 1 tablet, 1 tablet, oral, Daily polyethylene glycol (MIRALAX) packet 17 g, 17 g, oral, Daily sodium chloride 0.9% flush 0.5-20 mL, 0.5-20 mL, intra-catheter, Q8H SERGEI (ALT), 10 mL at 01/13/25 0100 sodium chloride 0.9% flush 0.5-20 mL, 0.5-20 mL, intra-catheter, PRN Social History Tobacco Use Smoking Status Never Smokeless Tobacco Not on file Alcohol Use: Not At Risk (12/05/2019) Received from [facility] Frequency of Alcohol Consumption: Never Average Number of Drinks: Not on file Frequency of Binge Drinking: Not on file Substance and Sexual Activity Drug Use Not on file No family history on file. Vitals: 01/13/25 0627 01/13/25 0632 01/13/25 0700 BP: Pulse: 102 89 Resp: 16 Temp: SpO2: 97% 95% PT: No results found for requested labs within last 30 days. INR: No results found for requested labs within last 30 days. APTT: No results found for requested labs within last 30 days. Hgb A1C: No results found for requested labs within last 30 days. CBC RBC: 01/13/2025: 3.43 M/cumm (L) RDW: No results found for requested labs within last 30 days. MCHC: 01/13/2025: 33.5 g/dL MCH: 01/13/2025: 31.8 pg MCV: 01/13/2025: 94.8 fL Hct: 01/13/2025: 32.5 % (L) Hgb: 01/13/2025: 10.9 g/dL (L) WBC: 01/13/2025: 13.2 K/cumm (H) MPV: 01/13/2025: 9.1 fL Platelets: 01/13/2025: 236 K/cumm RDW CV: 01/13/2025: 13.5 % RDW Sd: 01/13/2025: 45.8 fL BMP Glucose: 01/13/2025: 117 mg/dL Calcium: 01/13/2025: 8.9 mg/dL Sodium: 01/13/2025: 139 mmol/L Potassium: 01/13/2025: 4.0 mmol/L CO2: 01/13/2025: 22 mmol/L Chloride: 01/13/2025: 108 mmol/L BUN: 01/13/2025: 5 mg/dL (L) Creatinine: 01/13/2025: 0.36 mg/dL (L) DOS Physical Exam Airway Exam: Mallampati: I Cervical ROM: FROM TM distance: >4 Upper lip bite test class: 1 Cardiovascular Exam: Rate: regular Rhythm: regular Negative for Murmur Pulmonary Exam: LCTA EENT Exam: trachea midline Dental Exam: Appears intact Current state: Patient's current state is cooperative and interactive. Additional comments: Of note, patient mentions that she is slow to recover from her regional analgesia. States it took 12 hours for her to fully regain sensation/strength with her epidural for her first born, and took 2 days for her to fully recover from regional block for shoulder surgery. Discussed risks, benefits, alternatives to neuraxial analgesia, including but not limited to hypotension, PDPH, risk of prolonged or permanent numbness/weakness/paralysis, bleeding, infection, and possible need to convert to GETA. Pt voiced understanding and acceptance of risks and a desire to proceed with labor neuraxial analgesia. TH ADVISOR TH ADVISOR documented in this encounter Plan of Treatment Not on file documented as of this encounter Visit Diagnoses Not on filedocumented in this encounter Care Teams Silk Screen Printer Machine Relationship Specialty Start Date End Date Unknown, Notinfile PCP - General 04/24/24 Adan Huitron DO Family Medicine 04/24/24 documented as of this encounter
--- OUTSIDE RECORDS SUMMARY | 2025-01-13 14:47 | XMS_ITS | Encounter Summary ---
Author Organization [facility] Healthcare Address [address] [place] [address] Care Team Providers Care Finishing Tunnel Operator Name Role Phone Unknown, Notinfile Primary Care Provider Unavail able Adan Huitron DO Unavailable Reason for Visit * Reason Comments Contractions Encounter Details Date Type Department Care Team (Late st Contact Info) Description 01/13/2025 - Present Hospital Encounter [address] [address] Latosha Lea MD [address] [phone] Keya Regalado MD [address] [facility] [phone] [place], [place] [id number] Social History Tobacco Use Types Packs/Day Years [...] 01/13/2025 How often do you attend chur or adventism services? 1 to 4 times per year 01/13/2025 Do you belong to any clubs o r organizations such as scientologist groups, unions, fraternal or athletic groups, or [...] any time in the past 12 m [facility], were you homeless or living in a long-term (including now)? No 01/13/2025 Personal Safety Answer [...] on file Legal Sex Female 6:53 AM FLAT SURFACER JEWEL Gender Identity Not on file Sexual Orientation Not on file documented as of this encounter Last Filed Vital Signs Vital Sign Reading Time Taken Comments Blood Pressure 106/62 01/13/2025 12:49 PM FLAT SURFACER JEWEL Pulse 93 01/13/2025 12:49 PM FLAT SURFACER JEWEL Temperature 36.4 C (97.6 F) 01/13/2025 12:49 PM FLAT SURFACER JEWEL Respiratory Rate 16 01/13/2025 12:49 PM FLAT SURFACER JEWEL Oxygen Saturation 98% 01/13/2025 12:49 PM FLAT SURFACER JEWEL Inhaled Oxygen Concentration - - Weight 77.6 kg (171 lb) 01/13/2025 1:35 AM FLAT SURFACER JEWEL Height 165.1 cm (5' 5 ) 01/13/2025 12:07 AM FLAT SURFACER JEWEL Body Mass Index 28.46 01/13/2025 12:07 AM FLAT SURFACER JEWEL documented in this encounter Progress Notes * Berenice Coombs MD - 01/13/2025 6:32 AM CST Antepartum Progress Note Gestational Age: 34w5d Admission Date: 01/13/2025 Length of stay: 0 Brief HPI: 29 y.o. female at 34w5d gestation admitted for threatened labor also complicated by Rh negative SUBJECTIVE - starting to feel more regular contractions this AM, continues to rate them 4-5/10 - Reports active movement. No vaginal bleeding/leakage of fluid. Review of Systems Negative except as per above. OBJECTIVE Vitals: Temp Min: 36.5 ??C (97.7 ??F) Max: 36.7 ??C (98.1 ??F) Pulse Min: 85 Max: 120 BP Min: 117/69 Max: 119/57 Resp Min: 16 Max: 18 SpO2 Min: 94 % Max: 98 % FHR: cEFM reactive [place]: irregular contractions Physical Exam General: No acute distress. Cardiovascular: Normal rate, regular rhythm Lungs: Non-labored. Abdomen: Soft, non-tender, gravid. Extremities: Warm and well-perfused. Pelvic: SVE 4/50/-2 Neurologic: Alert and oriented x4, non-focal Lab Review: Recent Results (from the past 24 hours) CBC without differential Collection Time: 01/13/25 1:29 AM Result Value Ref Range WBC 13.2 (H) 3.8 - 9.9 K/cumm Hgb 10.9 (L) 11.9 - 15.5 g/dL Hct 32.5 (L) 35.6 - 45.5 % Plt 236 150 - 400 K/cumm MPV 9.1 9.1 - 12.3 fL RBC 3.43 (L) 3.90 - 5.20 M/cumm MCV 94.8 81.3 - 96.4 fL MCH 31.8 27.1 - 33.3 pg MCHC 33.5 32.3 - 35.7 g/dL RDW CV 13.5 11.1 - 14.9 % RDW SD 45.8 35.7 - 48.1 fL NRBC abs 0.00 0.00 - 0.01 K/cumm Type and screen Collection Time: 01/13/25 1:29 AM Result Value Ref Range Raven, indirect Positive (A) ABO Rh B Negative HIV 1/2 Antibody plus p24 Antigen Blood Collection Time: 01/13/25 1:29 AM Specimen: Blood Result Value Ref Range HIV 1/2 ab + p24 ag Nonreactive Nonreactive RPR Blood Collection Time: 01/13/25 1:29 AM Specimen: Blood Result Value Ref Range RPR Nonreactive Nonreactive Comprehensive metabolic panel Collection Time: 01/13/25 1:29 AM Result Value Ref Range Sodium 139 135 - 145 mmol/L Potassium, pl 4.0 3.3 - 4.9 mmol/L Chloride 108 97 - 110 mmol/L CO2 22 22 - 32 mmol/L Anion gap 9 2 - 15 mmol/L BUN 5 (L) 6 - 25 mg/dL Creatinine 0.36 (L) 0.60 - 1.10 mg/dL Glucose 117 70 - 199 mg/dL Calcium 8.9 8.5 - 10.3 mg/dL Bilirubin, total 1.4 (H) 0.1 - 1.2 mg/dL Protein, pl 7.1 6.5 - 8.5 g/dL Albumin 3.4 (L) 3.5 - 5.0 g/dL Alk phos 355 (H) 40 - 130 Units/L ALT 55 (H) 7 - 45 Units/L AST 50 (H) 10 - 45 Units/L eGFR Collection Time: 01/13/25 1:29 AM Result Value Ref Range eGFR >90 >=60 mL/min/1.73 m2 N. gonorrhoeae/C. trachomatis Amplification Vaginal Collection Time: 01/13/25 1:32 AM Specimen: None; Vaginal Result Value Ref Range C. trachomatis Not Detected Not Detected N. gonorrhoeae Not Detected Not Detected Trichomonas vaginalis PCR Vaginal Collection Time: 01/13/25 1:32 AM Specimen: Vaginal Result Value Ref Range Trichomonas DNA Not Detected Not Detected Check Sample Collection Time: 01/13/25 2:04 AM Result Value Ref Range ABO Rh B Negative Antibody identification Collection Time: 01/13/25 2:54 AM Result Value Ref Range Antibody ID 1 Passive Anti-D ASSESSMENT/PLAN Karina Fallon is a 29 y.o. at 34w5d transferred for tPTL. #tPTL - presented w/ contractions q2-5 - SVE 3 cm > 4/70/-2 at OSH - admit SVE 450/-2 - s/p terbutaline x2, nifedipine 20 mg, 2 g ampicillin, and BMZ x1 at OSH - denies VB, LOF - tocolysis not indicated - wet prep negative Plan: - Ucx/GC/CT/trich ordered - BMZ^11/13 @1930 #transaminitis, POA - OSH ALT/AST 64/63 on 01/08 > 57/49 on 01/12 - patient reporting palmar and plantar itchiness - admission ALT/AST 55/50 - possibly iso ICP, other etiologies include hepatitis infection, gallstone, hypertensive disorder unlikely Plan: - bile acids pending, qD CMP - if transaminitis worsening consider hepatitis panel and/or RUQ ultrasound #Rh negative - received Rhogam at 28w - no VB noted on exam - admission antibody passive anti-D #FWB -Dating criteria L=1 -Genetic screening LR NIPT -Anatomy US wnl -Date 01/13: BSUS EFW 2677 g (67%), vtx, DVP 3.13 cm -BMZ^01/14 @1930 -Mag not indicated -Peds c/s deferred -cEFM -Next US due shelly #MWB -PNL: Rh neg/Ab neg, Rub Imm, HIV NR, HepB NR, HepC unk, VZV Imm, RPR NR, GC/CT neg/neg -3T labs NR/NR -Pap never had abnormal -1hr GTT wnl -Tdap, Flu, and RSV received -Placenta anterior -GBS collected 01/13 -MOF: breast -MOD: anticipate vaginal -MOC: Alethea Coombs MD PGY-2 Obstetrics & Gynecology 01/13/25 Cosigned by Keya Regalado MD at 01/13/2025 11:02 AM FLAT SURFACER JEWEL SURFACER JEWEL SURFACER JEWEL Associated attestation - Keya Regalado MD - 01/13/2025 11:02 AM FLAT SURFACER JEWEL MFM Attending Attestation I have seen and examined the patient, Karina Fallon, on 01/13/2025 and I am in agreement with the plan as documented in the resident/fellow/TEODORO's note. Keya Regalado MD 01/13/2025 documented in this encounter H&P Notes * Latosha Lea MD - 01/13/2025 12:19 AM CST APU ADMISSION Subjective HPI: Karina Fallon is a 29 y.o. female at 34w5d gestation, dated by L=1 who was transferred from [place] for threatened PTL. Patient has received consistent care from [facility] (Lalita Claudio MD) Presented to OSH with painful contractions. On arrival, she was 3 cm dilated and made change to 4/70/-2. She was given terbutaline x2, BMZ initiated, nifedipine 20 mg, and 2 g ampicillin and transferred to [facility]. Of note, she had a previous admission for PTL at 31w and stabilized at 2 cm. She did not receive BMZ at that time. Pelvic rest was recommended however denies being told she had a short cervix on ultrasound. On arrival, patient comfortable, can feel contractions but are less painful, 4/10. Reports good movement. Denies LOF or VB. 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 Patient is . Pap History: No history of abnormal pap. STD History: none No past medical history on file. No past surgical history on file. Social History Tobacco Use Smoking status: Never Smokeless tobacco: Not on file Substance and Sexual Activity Drug use: Not on file Sexual activity: Not on file Alcohol Use: Not At Risk (12/05/2019) Received from [facility] AUDIT-C Frequency of Alcohol Consumption: Never Average Number of Drinks: Not on file Frequency of Binge Drinking: Not on file Safe at home: yes No family history on file. Allergies Allergen Reactions Benzoyl Peroxide-Aloe Vera Hives Benzoyl Peroxide-Sulfur Itching and Rash Mold Other (See comments) Unknown Review of Systems Review of systems per HPI and otherwise all systems are negative Objective Vitals: Vitals: 01/13/25 0020 BP: Pulse: 100 Resp: Temp: SpO2: 96% 24hr Min/Max: Temp: [36.7 ??C (98.1 ??F)] 36.7 ??C (98.1 ??F) Pulse: [99-105] 100 Resp: [18] 18 BP: (117)/(69) 117/69 Physical Exam: General: NAD, mood appropriate Pulmonary: non-labored Cardiovascular: Regular rate and rhythm Abdomen: Gravid, non-tender Extremities: Warm and well perfused Pelvic exam: SSE no pooling, discharge, or VB noted, cervix visually dilated, no protruding membranes seen Cervix: 50/-2 Monitoring: Baseline: 120 bpm, Variability: Moderate (Between 6 and 25 BPM), Accelerations: Acceleration 15x15,and Decelerations: None Uterine Activity: Frequency: irregular Ultrasound: Vertex presentation anterior placenta Previa: no Estimated Weight: 2677 g (67%ile) on US performed 01/13 Lab/Radiology/Diagnostic Review: Laboratory review: Lab results in the last 12 hours: No results found for this or any previous visit (from the past 12 hours). Talia Fallon is a 29 y.o. female at 34w5d who is being transferred for tPTL. #tPTL - presented w/ contractions q2-5 - SVE 3 cm > /70/-2 at OSH - admit SVE 50/-2 - s/p terbutaline x2, nifedipine 20 mg, 2 g ampicillin, and BMZ x1 at OSH - denies VB, LOF - tocolysis deferred - BMZ^11/13 @1930 - wet prep negative - Ucx/GC/CT/trich ordered #transaminitis, present on admission - OSH ALT/AST 64/63 ON 01/08 > 57/49 ON 01/12 - patient reporting palmar and plantar itchiness - possibly iso ICP, other etiologies include hepatitis infection, gallstone, hypertensive disorder unlikely Plan: - bile acids on admission, qD CMP - if transaminitis worsening consider hepatitis panel and/or RUQ ultrasound #Rh negative - received Rhogam at 28w - no VB noted on exam #FWB -Dating criteria L=1 -Genetic screening LR NIPT -Anatomy US wnl -Date 01/13: BSUS EFW 2677 g (67%), vtx, DVP 3.13 cm -BMZ^01/14 @1930 -Mag not indicated -Peds c/s deferred -cEFM -Next US due shelly #MWB -PNL: Rh neg/Ab neg, Rub Imm, HIV NR, HepB NR, HepC unk, VZV Imm, RPR NR, GC/CT neg/neg -3T labs NR/NR -Pap never had abnormal -1hr GTT wnl -Tdap, Flu, and RSV received -Placenta anterior -GBS collected 01/13 -MOF: breast -MOD: anticipate vaginal -MOC: hIUD Plan discussed with Dr. Lea. Berenice Coombs MD PGY-2 Obstetrics & Gynecology 01/13/25 MFM Fellow Attestation I have seen and discussed Karina Fallon with the resident, Dr. Coombs on 01/13/2025. I have evaluated the patient and reviewed the treatment plan and recommendations. I agree with the findings and the plan of care as documented in the resident???s note with the following addendum: Briefly, this stone 29 y.o. at 34w5d with complicated by Rh negative status who presents as a transfer from OSH for PTL. SVE 4 cm on arrival, stable from OSH. BMZ initiated at OSH. Patient appears very comfortable on arrival and reports contractions are improving. Given stable exam, will discontinue PCN but will continue to monitor closely on L&D. EFM reactive and reassuring. Of note, transaminitis noted on review of records and patient reports palm/sole itching. Bile acidsordered and will repeat CMP on admission. Consider additional workup pending LFTs and bile acid results. Latosha Lea MD Maternal- Medicine Fellow Cosigned by Keya Regalado MD at 01/13/2025 11:02 AM FLAT SURFACER JEWEL SURFACER JEWEL SURFACER JEWEL SURFACER JEWEL Associated attestation - Keya Regalado MD - 01/13/2025 11:02 AM FLAT SURFACER JEWEL MFM Attending Attestation I have seen and examined the patient, Karina Fallon, on 01/13/2025 and I am in agreement with the plan as documented in the resident/fellow/TEODORO's note. Contractions resolved this AM. Cervix stable at 4cm. Bile acids pending with primary OB and today but symptoms consistent with ICP. Itching improved today. Will start ursodiol PRN for symptoms or if BA are elevated. We discussed what ICP is and will make a plan for monitoring after labs results. Second steroid due tonight. Transition to daily monitoring. Keya Regalado MD 01/13/2025 documented in this encounter Procedure Notes * Tiffanie Haque MD - 01/13/2025 10:03 AM CST Procedures 29 y.o. at 34w5d Time on monitor: 01/13 0004 - 0957 FHR Baseline: 125 Variability: moderate Reactive: Yes Decelerations: none Contractions: present, [id number] Comments: I have reviewed NST and instructed RN to take off monitor Tiffanie Haque MD Cosigned by Keya Regalado MD at 01/13/2025 11:05 AM FLAT SURFACER JEWEL SURFACER JEWEL SURFACER JEWEL Associated attestation - Keya Regalado MD - 01/13/2025 11:05 AM FLAT SURFACER JEWEL I have independently reviewed the NST and agree with the documentation. Keya Regalado MD 01/13/2025 * Keya Regalado MD - 01/13/2025 1:48 AM CST Images from the original note were not included. R2 Update Growth Ultrasound on admission. EFW 2677 (67%ile) BPD 8.55 cm HC 30.3 cm AC 31.98 cm FL 6.95 cm DVP 3.13 cm Berenice Coombs MD PGY-2 Obstetrics & Gynecology I have reviewed the images and agree with interpretation. Keya Regalado MD 01/13/2025 SURFACER JEWEL SURFACER JEWEL SURFACER JEWEL documented in this encounter Miscellaneous Notes * Initial Assessments - Nellie Gomes LCSW - 01/13/2025 2:35 PM CST Reason for Admission Pt (Karina Fallon 1995) was admitted on 01/13/2025 for Threatened labor, third trimester [O47.03]. Social Work SDOH check in. 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 Medical insurance coverage is through [employer]. Pt is currently 34 weeks gestation. Social History Current address is [address] [place] [address] [place] [address], Currently [phone] (home) is the best phone number for future contact. Pt noted to have 1 other child(gary): *2 1/2 Male Pt reports that her spouse Ivan Fallon #[phone] will be a positive support for her Mood and Anxiety No maternal hx of MH dx noted in chart. No concerns of depressive symptoms noted recently or currently. Pt is aware that mood changes can exist during . Pt confirms that she can reach out toher supports or medical staff for follow up if symptoms arise. No additional PMAD resources requested at this time. Resources Provided and Goals Addressed Social Determinants of Health: Pt reports no issues with transportation, access to food, supports or finances. Pt hopeful for a short admission to [facility]. Pt is planning on delivering at the hospital closest to their home in [place], [place]. Family will make a game plan if delivery at 37 weeks and at [facility] is recommenced. No resources requested at this time. Strengths Pt is open and receptive to Social Work intervention, education, and resources. Safe Discharge Plan Social Work will continue to attend DCAM and collaborate with medical team. Social Work will follow for support and additional needs should they arise. Nellie BATISTA, BIGG Social Work SURFACER JEWEL * Plan of Care - Cassy Barber RN - 01/13/2025 7:40 AM CST Goals: Clinical Goals for the Shift: healthy mom, healthy baby, monitor PTL, pain control Summary: Problem: Labor Goal: Risk for labor will decrease Outcome: Progressing Problem: Labor and Delivery Goal: Will progress through the normal stages of labor and achieve successful delivery within minimal maternal and complications Outcome: Progressing Problem: Additional OB Conditions Goal: Monitor for complications related to PPROM Outcome: Progressing Goal: Mother's knowledge of PPROM condition and complications will improve Outcome: Progressing Goal: Mother will maintain adequate fluid balance, nutrition, and minimize electrolyte disturbanceswith hyperemesis Outcome: Progressing Goal: Minimize obstetric complications related to Opiod Use Disorder (OUD) and withdrawal Outcome: Progressing Goal: Minimize obstetric complications due to gestational diabetes Outcome: Progressing Goal: Mother's verbalization of understanding around OB conditions and complications will improve Outcome: Progressing Goal: Will remain free from complications related to obstetric conditions Outcome: Progressing Problem: Care Goal: Risk for complications during the period will decrease Outcome: Progressing Goal: Ability to identify and utilize resources during the phase will improve Outcome: Progressing Goal: Ability to demonstrate positive interaction with the child will improve Outcome: Progressing Goal: Ability to participate in self care as condition permits will improve Outcome: Progressing Problem: Goal: Mother's verbalization of proper breast feeding techniques will improve Outcome: Progressing Goal: Mother's use of appropriate support services will improve Outcome: Progressing Goal: Mother's demonstration of proper techniques will improve Outcome: Progressing Problem: Coping Goal: Ability to verbalize feelings will improve Outcome: Progressing Goal: Level of anxiety will decrease Outcome: Progressing Problem: Discharge Planning Goal: Understanding discharge needs will improve Outcome: Progressing Problem: Fluid Volume Goal: Will maintain adequate fluid volume Outcome: Progressing Problem: Nutrition Goal: Dietary intake will improve Outcome: Progressing Goal: Achievement of adequate weight for body size and type will improve Outcome: Progressing SURFACER JEWEL * Plan of Care - Sharla Delgado RN - 01/13/2025 1:50 AM CST Goals: Problem: Labor Goal: Risk for labor will decrease Outcome: Progressing Flowsheets (Taken 01/13/2025 0150) Risk for labor will decrease: Monitor uterine contractions Monitor heart rate Monitor signs and symptoms of magnesium sulfate toxicity Monitor pain control due to uterine contractions Monitor vaginal bleeding or drainage Evaluate cervical dilation and effacement Summary: VSS. Afebrile. SVE 4/50/-[address] Coombs. Ctx q 1-4, palpate mild. Pt rates pain with ctx4/10. FHR Cat 1. SURFACER JEWEL documented in this encounter Plan of Treatment Pending Results Name Type Priority Associated Diagnoses Date /Time Bile acids Lab Timed 01/13/2025 1:2 9 AM FLAT SURFACER JEWEL Group B streptococcal culture Vaginal/Rectal Microbiology Routine 1:32 AM FLAT SURFACER JEWEL Urine culture Urine, clean voided Microbiology Routine 01/13/2025 2:07 AM FLAT SURFACER JEWEL Scheduled Orders Name Type Priority Associated Diagnoses Order Schedule Bile acids Lab Timed Lab orders - c ollect at the specified time. for 1 Occurrences starting 01/13/2025 until 01/13/2025 Group B streptococcal culture Vaginal/Rectal Microbiology Routine Once for 1 Occurrences starting 01/13/2025 until 01/13/2025 Urine culture Urine, clean voided Microbiology Routine Once for 1 Occurrences starting 01/13/2025 until 01/13/2025 US Ob 14 Weeks Or Over Imaging IP Routine On ce for 1 Occurrences starting 01/13/2025 until 01/13/2025 documented as of this encounter Procedures * The patient is currently admitted. The information in this section might not be complete until the patient is discharged. Procedure Name Priority Date/Time Associated Diagnosis Comments ANTIBODY IDENTIFICATION Routine 01/13/20 2:54 AM FLAT SURFACER JEWEL B CHECK SAMPLE STAT 01/13/2025 2:04 AM FLAT SURFACER JEWEL N. GONORRHOEAE/C. TRACHOMATIS AMPLIFICATION Routine 01/13/2025 1:32 AM FLAT SURFACER JEWEL TRICHOMONAS VAGINALIS PCR Routine 01/13/2025 1:32 AM FLAT SURFACER JEWEL EGFR STAT 01/13/2025 1:29 AM FLAT SURFACER JEWEL HIV 1/2 ANTIBODY PLUS P24 ANTIGEN Routine 01/13/2025 1:29 AM FLAT SURFACER JEWEL RPR Routine 01/13/2025 1:29 AM FLAT SURFACER JEWEL CBC WITHOUT DIFFERENTIAL Routine 01/13/2025 1:29 AM FLAT SURFACER JEWEL TYPE AND SCREEN Timed 01/13/2025 1:29 AM FLAT SURFACER JEWEL COMPREHENSIVE METABOLIC PANEL STAT 01/13/2025 1:29 AM FLAT SURFACER JEWEL documented in this encounter Results * Antibody identification (01/13/2025 2:54 AM FLAT SURFACER JEWEL) Antibody ID 1 Passive Anti-D Blood 01/13/2025 2:54 AM FLAT SURFACER JEWEL 01/13/2025 2:54 AM FLAT SURFACER JEWEL Latosha Lea MD LAB BLOOD BANK TEST ORDERA BLES Final Result [facility] Ailyn [place] [address] * Check Sample (01/13/2025 2:04 AM FLAT SURFACER JEWEL) Pathologist [facility] ABO Rh B Negative [facility] HCLL OTHER 01/13/2025 2:04 AM FLAT SURFACER JEWEL 01/13/2025 2:14 AM FLAT SURFACER JEWEL Latosha Lea MD LAB BLOOD ORDERABLES Final Result Performing Organization Address [facility] [place] [address] [facility] * Trichomonas vaginalis PCR Vaginal (01/13/2025 1:32 AM FLAT SURFACER JEWEL) Pathologist [facility] Trichomonas DNA Not Detected Not Detected [facility] Comment: Interpretive Data This assay detects Trichomonas vaginalis by nucleic acid amplification testing (NAAT). This assay has been cleared by the [place] Food and Drug administration. The performance characteristics of this test have been verified by the [facility] laboratory. Excess blood in specimens may be inhibitory and result in false negative results. The performance of this test has not been evaluated in women or individuals less than 18 years of age. Current Interpretive Data last revised 2023. Vaginal 01/13/2025 1:32 AM FLAT SURFACER JEWEL 01/13/2025 1:50 AM FLAT SURFACER JEWEL Latosha eLa MD LAB MICROBIOLOGY - GENERAL ORDERABLES Final Result Performing Organization Address [facility] Co de Phone Number [facility]IE [facility] [place] [address] [facility] * N. gonorrhoeae/C. trachomatis Amplification Vaginal (01/13/2025 1:32 AM FLAT SURFACER JEWEL) Pathologist [facility] C. trachomatis Not Detected Not Detected [facility] N. gonorrhoeae Not Detected Not Detected [facility]JED [facility] Comment: Interpretive Data This assay detects Chlamydia trachomatis and Neisseria gonorrhoeae by nucleic acid amplification testing (NAAT). This assay has been cleared by the [place] Food and Drug administration. The performance characteristics of this test have been verified by the [facility] laboratory. The performance characteristics of this test have not been evaluated in individuals less than 14 years of age. Current Interpretive Data last revised 2023. Vaginal (None) 01/13/2025 1: 32 AM FLAT SURFACER JEWEL 01/13/2025 1:50 AM FLAT SURFACER JEWEL Latosha Lea MD LAB MICROBIOLOGY - GENERAL ORDERABLES Final Result [facility] [place] [address] [facility] * eGFR (01/13/2025 1:29 AM FLAT SURFACER JEWEL) eGFR >90 >=60 mL/min/1. 73 m2 Comment: Interpretive Data Reference Interval Normal >/= 90 mL/min/1.73m2 Mildly decreased* 60 - 89 mL/min/1.73m2 Mildly to moderately decreased 45 - 59 mL/min/1.73m2 Moderately to severely decreased 30 - 44 mL/min/1.73m2 Severely decreased 15 - 29 mL/min/1.73m2 Kidney Failure < 15 mL/min/1.73m2 *Relative to young adult level Estimated glomerular filtration rate is determined by the 2020 CKD-EPI equation recommended by the National Kidney Foundation (A Unifying Approach to GFR Estimation: Recommendations of the NKF-ASK Task Force on Reassessing the Inclusion of Race in Diagnosing Kidney Disease, JASN 2020). The CKD-EPI equation should not be used for patients with unstable renal function and has not been validated in children and those over 70. Current interpretive data was last reviewed 2021. Blood 01/13/2025 1:29 AM FLAT SURFACER JEWEL 01/13/2025 1:41 AM FLAT SURFACER JEWEL Latosha Lea MD LAB BLOOD ORDERABLES Final Result [facility] [place] [address] * (ABNORMAL) Comprehensive metabolic panel (01/13/2025 1:29 AM FLAT SURFACER JEWEL) Sodium 139 135 - 145 mmol/L Potassium, pl 4.0 3.3 - 4.9 mmol/L [facility] Chloride 108 97 - 110 mmol/L [facility] CO2 22 22 - 32 mmol/L [facility] Anion gap 9 2 - 15 mmol/L [facility] BUN 5(L) 6 - 25 mg/dL [facility] Creatinine 0.36(L) 0.60 - 1.10 mg/dL [facility] Glucose 117 70 - 199 mg/dL [facility] Comment: Interpretive Data Fasting glucose >/= 126 mg/dl is diagnostic for diabetes. Fasting is defined as no caloric intake for at least 8 hours. Fasting glucose between 100 mg/dl to 125 mg/dl is diagnostic of prediabetes. In a patient with classic symptoms of hyperglycemia or hyperglycemic crisis, a random glucose >/= 200 mg/dl is diagnostic for diabetes. In the absence of unequivocal hyperglycemia, results should be confirmed by repeat testing. The classification and Diagnosis of Diabetes Diabetes Care 202; 46: S19-S40. Current interpretive data was last revised 2022. Calcium 8.9 8.5 - 10.3 mg/dL [facility] Bilirubin, total 1.4(H) 0.1 - 1.2 mg/dL [facility] Protein, pl 7.1 6.5 - 8.5 g/dL [facility] Albumin 3.4(L) 3.5 - 5.0 g/dL [facility] Alk phos 355(H) 40 - 130 Units/L [facility] ALT 55(H) 7 - 45 Units/L [facility] AST 50(H) 10 - 45 Units/L [facility] Blood 01/13/2025 1:29 AM FLAT SURFACER JEWEL 01/13/2025 1:41 AM FLAT SURFACER JEWEL Latosha Lea MD LAB BLOOD ORDERABLES Final Result Performing Organization Address [facility] [place] [address] * RPR Blood (01/13/2025 1:29 AM FLAT SURFACER JEWEL) RPR Nonreactive Nonreactive Blood 01/13/2025 1:29 AM FLAT SURFACER JEWEL 01/13/2025 1:41 AM FLAT SURFACER JEWEL Latosha Lea MD LAB MICROBIOLOGY - GENERAL ORDERABLES Final Result Performing Organization Address [facility] [place] [address] * HIV 1/2 Antibody plus p24 Antigen Blood (01/13/2025 1:29 AM FLAT SURFACER JEWEL) Pathologist [facility] HIV 1/2 ab + p24 ag Nonreactive Nonreactive Comment:Nonreactive for HIV- 1 antigen and HIV-1/HIV-2 antibodies. No laboratory evidence of HIV infection. If acute HIV infection is suspected, consider testing for HIV-1 RNA. Current interpretive data was last revised on 22. Blood 01/13/2025 1:29 AM FLAT SURFACER JEWEL 01/13/2025 1:41 AM FLAT SURFACER JEWEL Latosha Lea MD LAB MICROBIOLOGY - GENERAL ORDERABLES Final Result Performing Organization Address [facility] Co de Phone Number [place] [address] * (ABNORMAL) Type and screen (01/13/2025 1:29 AM FLAT SURFACER JEWEL) Pathologist [facility] Raven, indirect Positive(A) ABO Rh B Negative [facility] Blood 01/13/2025 1:29 AM FLAT SURFACER JEWEL 01/13/2025 1:48 AM FLAT SURFACER JEWEL Narrative [facility] - 01/13/2025 2:54 AM FLAT SURFACER JEWEL Has the patient had Daratumumab or Isatuximab in the past 6 months?->Unknown Latosha Lea MD LAB BLOOD BANK TEST ORDERA BLES Final Result Performing Organization Address [facility]/ZIP Co de Phone Number [facility] [place] [address] * (ABNORMAL) CBC without differential (01/13/2025 1:29 AM FLAT SURFACER JEWEL) [facility] WBC 13.2(H) 3.8 - 9.9 K/cumm Hgb 10.9(L) 11.9 - 15.5 g/dL [facility] Hct 32.5(L) 35.6 - 45.5 % [facility] Plt 236 150 - 400 K/cumm [facility] MPV 9.1 9.1 - 12.3 fL [facility] RBC 3.43(L) 3.90 - 5.20 M/cumm [facility] MCV 94.8 81.3 - 96.4 fL [facility] MCH 31.8 27.1 - 33.3 pg [facility] MCHC 33.5 32.3 - 35.7 g/dL [facility] RDW CV 13.5 11.1 - 14.9 % [facility] RDW SD 45.8 35.7 - 48.1 fL [facility] NRBC abs 0.00 0.00 - 0.01 K/cumm [facility] Blood 01/13/2025 1:29 AM FLAT SURFACER JEWEL 01/13/2025 1:41 AM FLAT SURFACER JEWEL Latosha Lea MD LAB BLOOD ORDERABLES Final Result Performing Organization Address [facility]/State/[place] [address] documented in this encounter Visit Diagnoses Diagnosis Threatened labor, third trimester- Primary documented in this encounter Admitting Diagnoses Diagnosis Threatened labor, third trimester documented in this encounter Administered Medications Active Administered Medications - up to 3 most recent administrations Medication Order MAR Action Action Date Dose Rate Site betamethasone (CELESTONE) injection 12 mg 12 mg, intramuscular, Once, On Mon01/13/25 at 1930, For 1 dose, Room temperature only. Lactated Ringer's (LR) bolus 1,000 mL 1,000 mL, intravenous, 3 times daily PRN, for non-reassuring heart rate, variable decelerations, or late deceleration., Starting on Mon01/13/25 at 0110, For 1 dose, L&D Pre-Delivery ondansetron (ZOFRAN) injection 4 mg 4 mg, intravenous, Administer over 2 Minutes, Every 6 hours PRN, nausea, vomiting, if not tolerating PO, Starting on Mon01/13/25 at 0110, L&D Pre-Delivery, Indications: Nausea and VomitingIndications:Nausea and Vomiting ondansetron ODT (ZOFRAN-ODT) disintegrating tablet 4 mg 4 mg, oral, Every 6 hours PRN, nausea, vomiting, Starting on Mon01/13/25 at 0110, L&D Pre-Delivery, If administering by mouth, place tablet on tongue and allow to dissolve., Indications: Nausea and VomitingIndications:Nausea and Vomiting PNV with [id number] tablet 1 tablet 1 tablet, oral, Daily, First dose on Mon01/13/25 at 0900, L&D Pre-Delivery, Indications: Prevention of Neural Tube DefectsIndications:Prevention of Neural Tube Defects Given 01/13/2025 8:59 AM FLAT SURFACER JEWEL 1 tablet sodium chloride 0.9% flush 0.5-20 mL 0.5-20 mL, intra-catheter, Every 8 hours scheduled (alternate), First dose on Mon01/13/25 at 0100, L&D Pre-Delivery, Flush volume based on line type and size. Given 01/13/2025 9:00 AM FLAT SURFACER JEWEL 10 mL Given 01/13/2025 1:00 AM FLAT SURFACER JEWEL 10 mL documented in this encounter Active and Recently Administered Medications Times are shown in FLAT SURFACER JEWEL. Scheduled Medication Order 01/11/2025 01/12/2025 01/13/2025 betamethasone (CELESTONE) injection 12 mg 12 mg, intramuscular, Once, On Mon01/13/25 at 1930, For 1 dose, Room temperature only. 1930 (Due) PNV with [id number] tablet 1 tablet 1 tablet, oral, Daily, First dose on Mon01/13/25 at 0900, L&D Pre-Delivery, Indications: Prevention of Neural Tube Defects 0859 (Given - Provid er: Cassy Barber RN) polyethylene glycol (MIRALAX) packet 17 g 17 g, oral, Daily, First dose on Mon01/13/25 at 0900, L&D Pre-Delivery, Hold if diarrhea., Indications: constipation 0903 (Not Given - Pr ovider: Cassy Barber RN - Reason: Patient/family refused) sodium chloride 0.9% flush 0.5-20 mL 0.5-20 mL, intra-catheter, Every 8 hours scheduled (alternate), First dose on Mon01/13/25 at 0100, L&D Pre-Delivery, Flush volume based on line type and size. 0100 (Given - Provid er: Sharla Delgado RN)0900 (Given - Provider: Cassy Barber RN)1600 (Due) PRN Medication Order 01/11/2025 01/12/2025 01/13/2025 acetaminophen (TYLENOL) tablet 1,000 mg 1,000 mg, oral, Every 6 hours PRN, 1st line for pain, fever, fever greater than 38.3 C, Starting on Mon01/13/25 at 0016, L&D Pre-Delivery, Indications: Fever, Pain calcium carbonate (TUMS) chewable tablet 500 mg 500 mg, oral, 4 times daily PRN, heartburn, Starting on Mon01/13/25 at 0017, L&D Pre-Delivery, Indications: Dyspepsia Carrier Fluids for Secondary Infusion - 0.9% Sodium Chloride 30 mL, intravenous, As needed, For priming tubing and/or flushing, Starting on Mon01/13/25 at 0016, L&D Pre-Delivery, 0-250 ml/hr to flush line after IV infusions when no maintenance IV ordered. Infuse 30mL at the same rate as the secondary infusion. Run as primary IV, not intended for KVO. Lactated Ringer's (LR) bolus 1,000 mL 1,000 mL, intravenous, 3 times daily PRN, for non-reassuring heart rate, variable decelerations, or late deceleration., Starting on Mon01/13/25 at 0110, For 1 dose, L&D Pre-Delivery ondansetron (ZOFRAN) injection 4 mg(Linked Group 1) 4 mg, intravenous, Administer over 2 Minutes, Every 6 hours PRN, nausea, vomiting, if not tolerating PO, Starting on Mon01/13/25 at 0110, L&D Pre-Delivery, Indications: Nausea and Vomiting ondansetron ODT (ZOFRAN-ODT) disintegrating tablet 4 mg(Linked Group 1) 4 mg, oral, Every 6 hours PRN, nausea, vomiting, Starting on Mon01/13/25 at 0110, L&D Pre-Delivery, If administering by mouth, place tablet on tongue and allow to dissolve., Indications: Nausea and Vomiting sodium chloride 0.9% flush 0.5-20 mL 0.5-20 mL, intra-catheter, As needed, line care, Starting on Mon01/13/25 at 0016, L&D Pre-Delivery, Flush volume based on line type and size. Flush before and after each use. Linked Groups Order Group 1: ondansetron ODT (ZOFRAN-ODT) disintegrating tablet 4 mgJump to med 4 mg, oral, Every 6 hours PRN, nausea, vomiting, Starting on Mon01/13/25 at 0110, L&D Pre-Delivery, If administering by mouth, place tablet on tongue and allow to dissolve., Indications: Nausea and Vomiting Or ondansetron (ZOFRAN) injection 4 mgJump to med 4 mg, intravenous, Administer over 2 Minutes, Every 6 hours PRN, nausea, vomiting, if not tolerating PO, Starting on Mon01/13/25 at 0110, L&D Pre-Delivery, Indications: Nausea and Vomiting documented in this encounter Orders Medications Ordered That Omar ht Not Have Been Administered Count Last Ordered Date First Ordered Date acetaminophen (TYLENOL) tablet 1,000 mg 1 0 01/13/2025 betamethasone (CELESTONE) injection 12 mg 1 01/13/2025 calcium carbonate (TUMS) armin wable tablet 500 mg 1 01/13/2025 Carrier Fluids for Secondary Infusion - 0.9% Sodium Chloride 1 01/13/2025 Lactated Ringer's (LR) bolus 1,000 mL 1 NIFEdipine (PROCARDIA) capsule 20 mg 1 12/28 NIFEdipine (PROCARDIA) capsule 30 mg 1 12/28 ondansetron (ZOFRAN) injection 4 mg 2 01/13 ondansetron ODT (ZOFRAN-ODT) disintegrating tablet 4 mg 2 01/13/2025 polyethylene glycol (MIRALAX) packet 17 g 1 01/13/2025 sodium chloride 0.9% flush 0.5-20 mL 1 12/28 Diet Count Last Ordered Date First Orde red Date ADULT DIET 1 01/13/2025 Nursing Count Last Ordered Date First Orde red Date ACTIVITY 1 01/13/2025 CONTRACTION - MONITORING 1 01/13/2025 MONITORING 1 01/13/2025 MAINTAIN IV ACCESS 1 01/13/2025 NOTIFY PROVIDER (SPECIFY) 1 01/13/2025 VITAL SIGNS 1 01/13/2025 Code Status Count Last Ordered Date First Orde red Date FULL CODE 1 01/13/2025 IV Count Last Ordered Date First Orde red Date INSERT PERIPHERAL IV 1 01/13/2025 Admission Count Last Ordered Date First Orde red Date ADMIT TO L&D INPATIENT 1 01/13/2025 CORE MEASURES Count Last Ordered Date First Ord ered Date REASON FOR NO VTE PROPHYLAXIS AT ADMISSION 2 01/13/2025 documented in this encounter Care Teams Finishing Tunnel Operator Relationship Specialty Start Date End Date Unknown, Notinfile PCP - General 04/24/24 Adan Huitron DO Family Medicine 04/24/24 documented as of this encounter
--- OUTSIDE RECORDS SUMMARY | 2025-01-13 14:47 | XMS_ITS | Encounter Summary ---
Author Organization [facility] Address [address] [place] [id number] Care Team Providers Care Senior Client Advisor Name Role Phone , Generic Dex LORA Primary Care Provider Unavailable Adan Huitron DO Primary Care Provider [phone] Adan Huitron DO Primary Care Provider + Poirot, Maria G APNP Primary Care Provider + RyConnie carter DO Primary Care Provider + [phone] Adan Huitron DO Unavailable + [phone] Poirot, Maria G APNP Unavailable + [phone] Poirot, Maria G APNP Primary Care Provider + Encounter Details Date Type Department Care Team (Late st Contact Info) Description 09/30/2017 [place] [address] , Generic ConversionMD Social History Tobacco Use [...] documented as of this encounter Care Teams Senior Client Advisor Relationship Specialty Start Date End Date Tangela Lora MD PCP - General 01/01/16 Adan Huitron DO PCP - General FAMILY PRACTICE 11/28/19 07/05/22 Adan Huitron DO PCP - General FAMILY PRACTICE 07/06/22 10/25/22 Maria G Kuhn APNP [address] [place] [address] PCP - General NURSE PRACTITIONER 10/26/22 11/28/22 [place] [address] [place] [address] [id number] PCP - General FAMILY PRACTICE 11/29/22 03/01/23 Maria G Kuhn APNP [address], [place] [id number] PCP - General NURSE PRACTITIONER 03/02/23 Adan Huitron DO FAMILY PRACTICE 07/06/22 11/15/22 Maria G Kuhn APNP [address], [place] [id number]- NURSE PRACTITIONER 03/02/23 03/02/23 documented as of this encounter
--- OUTSIDE RECORDS SUMMARY | 2025-01-13 14:48 | XMS_ITS | Clinical Summary ---
Author Organization [facility] [address] Address [address] [place] [id number] Care Team Providers Care Social Sciences Professor Name Role Phone Unknown, Notinfile Primary Care Provider Unavail able Adan Huitron DO Unavailable Allergies Active Allergy Reactions Criticality Noted Date Comments Benzoyl Peroxide-Aloe Vera Hives Medium 4 Benzoyl Peroxide-Sulfur Itching,Rash Medium 11/19/2021 Mold Other (See comments) Low 02/18/2022 Unknown Medications loratadine (CLARITIN) 10 mg tablet Suspended 123/iron/folic/ omeg3s (ONE-A-DAY WOMEN'S 1 ORAL) 1 Suspended fish oil-dha-epa 1,200-144-216 mg capsule Take by mouth Suspended multivitamin tabletIndicatio ns:Vitamin Deficiency Prevention Take 1 tablet by mouth Suspended fexofenadine (JOSE) 60 mg tablet Take 1 tablet (60 mg total) by mouth daily Suspended ofloxacin (OCUFLOX) 0.3 % ophthalmic solutionIndicat ions:Hordeolum externum left lower eyelid instill 2 drops in left eye every 4 hours for 2 days, then 2 drops 4 times daily on days 3 through 7 5 mL 4 Suspended Active Problems Problem Noted Date Diagnosed Date Threatened labor, third trimester 2024 Acute non-recurrent maxillary sinusitis 11/19/20 21 Assessment & Plan (11/19/2021 8:28 AM ACADEMIC AFFAIRS ASSISTANT): -amoxicillin 500 b.i.d. -continue the loratadine -continue to Tylenol -drink plenty of fluids -notify your provider if you do not improve Arthralgia of elbow 03/18/2013 Arthralgia of shoulder 12/06/2012 Estimated Date of Delivery Comme nts Yes 02/19/2025 Based on Other B asis, patient reported based on LMP=1st trimester ultrasound (~11w) Encounters Date Type Department Care Team Description 01/13/2025 6:59 AM ACADEMIC AFFAIRS ASSISTANT Anesthesia Event [facility] [address] [place] [address] Argentina Rodriguez MD 01/13/2025 - Present Hospital Encounter [address] [phone] Latosha Lea MD Bligard, Keya Purvis MD from Last 3 Months Immunizations Immunization Administration Dates Next Due Influenza, Unspecified 08/27/2024 Social History Tobacco Use Types Packs/Day Years [...] often do you attend chur ch or spiritism services? 1 to 4 times per year 01/13/2025 Do you belong to any clubs o r organizations such as holiness groups, unions, fraternal or athletic groups, or [...] any time in the past 12 m [facility], were you homeless or living in a alf (including now)? No 01/13/2025 Personal Safety Answer [...] on file Legal Sex Female 6:53 AM ACADEMIC AFFAIRS ASSISTANT Gender Identity Not on file Sexual Orientation Not on file Obstetrics History Para Term AB IAB SAB Ectopic Multiple Livin g Live Births 2 1 1 0 0 0 0 0 1 1 Date Outcome GA Total Labor Labor/2nd/3rd Weight Sex Type Anes PTL Cindy A1 A5 Name Clin Term 40w0 d M Vag-S pont Living Current Summary Episode Dates Number of Fetuses Estimated Date of Delivery 01/13/2025 - Present (01/13/2025) 02/19/2025 (set by Berenice Coombs MD on 01/13/2025 based on Other Basis) Dating Summary Based On LONI GA Diff Other Basis 02/19/2025 Working Comment:patient reported bas ed on LMP=1st trimester ultrasound (~11w) Vitals Pregravid Weight Height TWG (As of 01/13/2025) Pregrav id BMI 165.1 cm (5' 5 ) Date GA Fund Present FHR Mvmt BP Weight Edema Alb Glu Ket Dil/ Eff/Sta 5 34w5d Inpatient data not displayed here. See encounter summary. Notes Progress Notes - Hospital En counter - 01/13/2025 - GA:34w5d 01/13/2025 - 34w5d - Berenice Coombs MD Antepartum Progress Note Gestational Age: 34w5d Admission Date: 01/13/2025 Length of stay: 0 Brief HPI: 29 y.o. female at 34w5d gestation admitted for threatened labor also complicated by Rh negative SUBJECTIVE - starting to feel more regular contractions this AM, continues to rate them 4- 5/10 - Reports active movement. No vaginal bleeding/leakage of fluid. Review of Systems Negative except as per above. OBJECTIVE Vitals: Temp Min: 36.5 C (97.7 F) Max: 36.7 C (98.1 F) Pulse Min: 85 Max: 120 BP Min: 117/69 Max: 119/57 Resp Min: 16 Max: 18 SpO2 Min: 94 % Max: 98 % FHR: cEFM reactive [place]: irregular contractions Physical Exam General: No acute [...] > 4/70/-2 at OSH - admit SVE 4/50/-2 - s/p terbutaline x2, nifedipine 20 mg, [...] Keya Regalado MD at 01/13/2025 11:02 AM ACADEMIC AFFAIRS ASSISTANT EMIC AFFAIRS ASSISTANT EMIC AFFAIRS ASSISTANT Associated attestation - Keya Regalado MD - 01/13/2025 11:02 AM ACADEMIC AFFAIRS ASSISTANT MFM Attending Attestation I have seen and examined the patient, Karina Fallon, on 01/13/2025 and I am in agreement with the plan as documented in the resident/fellow/TEODORO's note. Keya Regalado MD 01/13/2025 Last Filed Vital Signs Vital Sign Reading Time Taken Comments Blood Pressure 106/62 01/13/2025 12:49 PM ACADEMIC AFFAIRS ASSISTANT Pulse 93 01/13/2025 12:49 PM ACADEMIC AFFAIRS ASSISTANT Temperature 36.4 C (97.6 F) 01/13/2025 12:49 PM ACADEMIC AFFAIRS ASSISTANT Respiratory Rate 16 01/13/2025 12:49 PM ACADEMIC AFFAIRS ASSISTANT Oxygen Saturation 98% 01/13/2025 12:49 PM ACADEMIC AFFAIRS ASSISTANT Inhaled Oxygen Concentration - - Weight 77.6 kg (171 lb) 01/13/2025 1:35 AM ACADEMIC AFFAIRS ASSISTANT Height 165.1 cm (5' 5 ) 01/13/2025 12:07 AM ACADEMIC AFFAIRS ASSISTANT Body Mass Index 28.46 01/13/2025 12:07 AM ACADEMIC AFFAIRS ASSISTANT Plan of Treatment Health Maintenance Due Date Last Done Comments Depression Screening 1997 Hepatitis C Screening 1997 Hepatitis B Screening 2015 Regular Well Visit/Exam 18-64 2015 Cervical Cancer Screening 09/04/2021 09/04/2020 Covid-19 Vaccine ( season) 2024 02/02/2021 DTaP/Tdap/Td Vaccine (8 - Td or Tdap) 09/13/2031 09/13/2021, 05/13/2008, 07/27/2001, Additional history exists Varicella Vaccines Completed 07/09/2001, 09/17/1998 HPV Vaccines Completed 03/08/2010, 07/28, 05/13/2008 Influenza Vaccine Completed 08/27/2024, , 09/13/2021, Additional history exists Pneumococcal vaccine <65 Aged Out No longer eligible based on patient's age to complete this topic Procedures * The patient is currently admitted. The information in this section might not be complete until the patient is discharged. Procedure Name Priority Date/Time Associated Diagnosis Comments ANTIBODY IDENTIFICATION Routine 01/13/20 2:54 AM ACADEMIC AFFAIRS ASSISTANT B CHECK SAMPLE STAT 01/13/2025 2:04 AM ACADEMIC AFFAIRS ASSISTANT TRICHOMONAS VAGINALIS PCR Routine 01/13/2025 1:32 AM ACADEMIC AFFAIRS ASSISTANT N. GONORRHOEAE/C. TRACHOMATIS AMPLIFICATION Routine 01/13/2025 1:32 AM ACADEMIC AFFAIRS ASSISTANT EGFR STAT 01/13/2025 1:29 AM ACADEMIC AFFAIRS ASSISTANT COMPREHENSIVE METABOLIC PANEL STAT 01/13/2025 1:29 AM ACADEMIC AFFAIRS ASSISTANT TYPE AND SCREEN Timed 01/13/2025 1:29 AM ACADEMIC AFFAIRS ASSISTANT CBC WITHOUT DIFFERENTIAL Routine 01/13/2025 1:29 AM ACADEMIC AFFAIRS ASSISTANT RPR Routine 01/13/2025 1:29 AM ACADEMIC AFFAIRS ASSISTANT HIV 1/2 ANTIBODY PLUS P24 ANTIGEN Routine 01/13/2025 1:29 AM ACADEMIC AFFAIRS ASSISTANT from Last 3 Months Results * Antibody identification (01/13/2025 2:54 AM ACADEMIC AFFAIRS ASSISTANT) Antibody ID 1 Passive Anti-D Blood 01/13/2025 2:54 AM ACADEMIC AFFAIRS ASSISTANT 01/13/2025 2:54 AM ACADEMIC AFFAIRS ASSISTANT us Latosha Lea MD LAB BLOOD BANK TEST ORDERA BLES Final Result ANN MARIE [facility] [place] [address] * Check Sample (01/13/2025 2:04 AM ACADEMIC AFFAIRS ASSISTANT) ABO Rh B Negative [facility] HCLL OTHER 01/13/2025 2:04 AM ACADEMIC AFFAIRS ASSISTANT 01/13/2025 2:14 AM ACADEMIC AFFAIRS ASSISTANT Latosha Lea MD LAB BLOOD ORDERABLES [place] [address] [facility] * N. gonorrhoeae/C. trachomatis Amplification Vaginal (01/13/2025 1:32 AM ACADEMIC AFFAIRS ASSISTANT) C. trachomatis Not Detected Not Detected [facility] N. gonorrhoeae Not Detected Not Detected [facility] Comment: Interpretive Data This assay detects Chlamydia trachomatis and Neisseria gonorrhoeae by nucleic acid amplification testing (NAAT). This assay has been cleared by the [place] Food and Drug administration. The performance characteristics of this test have been verified by the [facility] Molecular Infectious Disease laboratory. The performance characteristics of this test have not been evaluated in individuals less than 14 years of age. Current Interpretive Data last revised 2023. Vaginal (None) 01/13/2025 1: 32 AM ACADEMIC AFFAIRS ASSISTANT 01/13/2025 1:50 AM ACADEMIC AFFAIRS ASSISTANT Latosha Lea MD LAB MICROBIOLOGY - GENERAL ORDERABLES Final Result Performing Organization Address City/[facility] Co de Phone Number [facility] [place] [address] [facility] * Trichomonas vaginalis PCR Vaginal (01/13/2025 1:32 AM ACADEMIC AFFAIRS ASSISTANT) Trichomonas DNA Not Detected Not Detected [facility] Comment: Interpretive Data This assay detects Trichomonas vaginalis by nucleic acid amplification testing (NAAT). This assay has been cleared by the [place] Food and Drug administration. The performance characteristics of this test have been verified by the [facility] Infectious Disease laboratory. Excess blood in specimens may be inhibitory and result in false negative results. The performance of this test has not been evaluated in women or individuals less than 18 years of age. Current Interpretive Data last revised 2023. Vaginal 01/13/2025 1:32 AM ACADEMIC AFFAIRS ASSISTANT 01/13/2025 1:50 AM ACADEMIC AFFAIRS ASSISTANT Latosha Lea MD LAB MICROBIOLOGY - GENERAL ORDERABLES Final Result Performing Organization Address City/[facility]/ZIP Co de Phone Number ANN MARIE [facility] [place] [address] [facility] * eGFR (01/13/2025 1:29 AM ACADEMIC AFFAIRS ASSISTANT) eGFR >90 >=60 mL/min/1. 73 m2 Comment: [...] last reviewed 2021. Blood 01/13/2025 1:29 AM ACADEMIC AFFAIRS ASSISTANT 01/13/2025 1:41 AM ACADEMIC AFFAIRS ASSISTANT Latosha Lea MD LAB BLOOD ORDERABLES Final Result Performing Organization Address City/[facility]/ZIP Co de Phone Number ANN MARIE [facility] [place] [address] * HIV 1/2 Antibody plus p24 Antigen Blood (01/13/2025 1:29 AM ACADEMIC AFFAIRS ASSISTANT) Pathologist [facility] HIV 1/2 ab + p24 ag Nonreactive Nonreactive Comment:Nonreactive for HIV- 1 antigen and HIV-1/HIV-2 antibodies. No laboratory evidence of HIV infection. If acute HIV infection is suspected, consider testing for HIV-1 RNA. Current interpretive data was last revised on 22. Blood 01/13/2025 1:29 AM ACADEMIC AFFAIRS ASSISTANT 01/13/2025 1:41 AM ACADEMIC AFFAIRS ASSISTANT Latosha Lea MD LAB MICROBIOLOGY - GENERAL ORDERABLES Final Result Performing Organization Address [facility] Co de Phone Number [facility] [place] [place] [address] * RPR Blood (01/13/2025 1:29 AM ACADEMIC AFFAIRS ASSISTANT) [facility] RPR Nonreactive Nonreactive Blood 01/13/2025 1:29 AM ACADEMIC AFFAIRS ASSISTANT 01/13/2025 1:41 AM ACADEMIC AFFAIRS ASSISTANT Latosha Lea MD LAB MICROBIOLOGY - GENERAL ORDERABLES Final Result Performing Organization Address [facility] de Phone Number [facility] [place] [address] * (ABNORMAL) CBC without differential (01/13/2025 1:29 AM ACADEMIC AFFAIRS ASSISTANT) [facility] WBC 13.2(H) 3.8 - 9.9 K/cumm Hgb 10.9(L) 11.9 - 15.5 g/dL [facility] Hct 32.5(L) 35.6 - 45.5 % [facility] Plt 236 150 - 400 K/cumm [facility] MPV 9.1 9.1 - 12.[address] [facility] RBC 3.43(L) 3.90 - 5.20 M/cumm [facility] MCV 94.8 81.3 - 96.[address] [facility] MCH 31.8 27.1 - 33.[address] [facility] MCHC 33.5 32.3 - 35.7 g/dL [facility] RDW CV 13.5 11.1 - 14.9 % [facility] RDW SD 45.8 35.7 - 48.[address] [facility] NRBC abs 0.00 0.00 - 0.01 K/cumm [facility] Blood 01/13/2025 1:29 AM ACADEMIC AFFAIRS ASSISTANT 01/13/2025 1:41 AM ACADEMIC AFFAIRS ASSISTANT Latosha Lea MD LAB BLOOD ORDERABLES Final Result Performing Organization Address [facility] Co de Phone Number [facility] [place] [address] * (ABNORMAL) Type and screen (01/13/2025 1:29 AM ACADEMIC AFFAIRS ASSISTANT) [facility] Raven, indirect Positive(A) ABO Rh B Negative [facility] Blood 01/13/2025 1:29 AM ACADEMIC AFFAIRS ASSISTANT 01/13/2025 1:48 AM ACADEMIC AFFAIRS ASSISTANT Narrative [facility] - 01/13/2025 2:54 AM ACADEMIC AFFAIRS ASSISTANT Has the patient had Daratumumab or Isatuximab in the past 6 months?->Unknown Latosha Lea MD LAB BLOOD BANK TEST ORDERA BLES Final Result Performing Organization Address [facility] Co de Phone Number [facility] [place] [address] * (ABNORMAL) Comprehensive metabolic panel (01/13/2025 1:29 AM ACADEMIC AFFAIRS ASSISTANT) [facility] Sodium 139 135 - 145 mmol/L Potassium, pl 4.0 3.3 - 4.9 mmol/L [facility] Chloride 108 97 - 110 mmol/L [facility] CO2 22 22 - 32 mmol/L [facility] Anion gap 9 2 - 15 mmol/L [facility] BUN 5(L) 6 - 25 mg/dL [facility] Creatinine 0.36(L) 0.60 - 1.10 mg/dL [facility] Glucose 117 70 - 199 mg/dL [facility] Comment: Interpretive Data Fasting glucose >/= 126 [...] 2022. Calcium 8.9 8.5 - 10.3 mg/dL [facility] Bilirubin, total 1.4(H) 0.1 - 1.2 mg/dL [facility] Protein, pl 7.1 6.5 - 8.5 g/dL [facility] Albumin 3.4(L) 3.5 - 5.0 g/dL [facility] Alk phos 355(H) 40 - 130 Units/L [facility] ALT 55(H) 7 - 45 Units/L [facility] AST 50(H) 10 - 45 Units/L [facility] Blood 01/13/2025 1:29 AM ACADEMIC AFFAIRS ASSISTANT 01/13/2025 1:41 AM ACADEMIC AFFAIRS ASSISTANT Latosha Lea MD LAB BLOOD ORDERABLES Final Result [facility] [place] [address] from Last 3 Months Insurance [employer] OOS [employer]IG[employer] OPEN ACCESS CIGNA OPEN ACCESS CIGNA OPEN ACCESS Advance Directives For more information, please contact: [phone] * Full Code (Latest Code Status on File) Date Activated Date Inactivated Comments 01/13/2025 12:17 AM Care Teams Social Sciences Professor Relationship Specialty Start Date End Date Unknown, Notinfile PCP - General 04/24/24 Adan Huitron DO Family Medicine 04/24/24
--- OUTSIDE RECORDS SUMMARY | 2025-01-13 14:48 | XMS_ITS | Referral Summary ---
Author Organization [facility] [address] Address [address] [place] [id number] Care Team Providers Care Car Pre Cooler Name Role Phone Unknown, Notinfile Primary Care Provider Unavail able Adan Huitron Edrob DO Unavailable Encounters Date Type Department Care Team Description 01/13/2025 6:59 AM RAM CAR OPERATOR Anesthesia Event [facility] [address] [place] [address] Argentina Rodriguez MD 01/13/2025 - Present Hospital Encounter [facility] [address] [place] [address] Latosha Lea MD Bligard, Keya Purvis MD from Last 3 Months Allergies Active Allergy Reactions Criticality Noted Date [...] 21 Assessment & Plan (11/19/2021 8:28 AM RAM CAR OPERATOR): -amoxicillin 500 b.i.d. -continue the loratadine -continue to Tylenol -drink plenty of fluids -notify your provider if you do not improve Arthralgia of elbow 03/18/2013 Arthralgia of shoulder 12/06/2012 Estimated Date of Delivery Comme nts Yes 02/19/2025 Based on Other B asis, patient reported based on LMP=1st trimester ultrasound (~11w) Immunizations Immunization Administration Dates Next Due Influenza, [...] often do you attend chur ch or voodoo services? 1 to 4 times per year 01/13/2025 Do you belong to any clubs o r organizations such as temple groups, unions, fraternal or athletic groups, or [...] any time in the past 12 m [facility], were you homeless or living in a [...] on file Legal Sex Female 6:53 AM RAM CAR OPERATOR Gender Identity Not on file Sexual Orientation Not on file Last Filed Vital Signs Vital Sign Reading Time Taken Comments Blood Pressure 106/62 01/13/2025 12:49 PM RAM CAR OPERATOR Pulse 93 01/13/2025 12:49 PM RAM CAR OPERATOR Temperature 36.4 C (97.6 F) 01/13/2025 12:49 PM RAM CAR OPERATOR Respiratory Rate 16 01/13/2025 12:49 PM RAM CAR OPERATOR Oxygen Saturation 98% 01/13/2025 12:49 PM RAM CAR OPERATOR Inhaled Oxygen Concentration - - Weight 77.6 kg (171 lb) 01/13/2025 1:35 AM RAM CAR OPERATOR Height 165.1 cm (5' 5 ) 01/13/2025 12:07 AM RAM CAR OPERATOR Body Mass Index 28.46 01/13/2025 12:07 AM RAM CAR OPERATOR Plan of Treatment Not on file Procedures * The patient is currently admitted. The information in this section might not be complete until the patient is discharged. Procedure Name Priority Date/Time Associated Diagnosis Comments ANTIBODY IDENTIFICATION Routine 01/13/20 2:54 AM RAM CAR OPERATOR B CHECK SAMPLE STAT 01/13/2025 2:04 AM RAM CAR OPERATOR TRICHOMONAS VAGINALIS PCR Routine 01/13/2025 1:32 AM RAM CAR OPERATOR N. GONORRHOEAE/C. TRACHOMATIS AMPLIFICATION Routine 01/13/2025 1:32 AM RAM CAR OPERATOR EGFR STAT 01/13/2025 1:29 AM RAM CAR OPERATOR COMPREHENSIVE METABOLIC PANEL STAT 01/13/2025 1:29 AM RAM CAR OPERATOR TYPE AND SCREEN Timed 01/13/2025 1:29 AM RAM CAR OPERATOR CBC WITHOUT DIFFERENTIAL Routine 01/13/2025 1:29 AM RAM CAR OPERATOR RPR Routine 01/13/2025 1:29 AM RAM CAR OPERATOR HIV 1/2 ANTIBODY PLUS P24 ANTIGEN Routine 01/13/2025 1:29 AM RAM CAR OPERATOR from Last 3 Months Results * Antibody identification (01/13/2025 2:54 AM RAM CAR OPERATOR) Antibody ID 1 Passive Anti-D Blood 01/13/2025 2:54 AM RAM CAR OPERATOR 01/13/2025 2:54 AM RAM CAR OPERATOR Latosha Lea MD LAB BLOOD BANK TEST ORDERA BLES Final Result [facility] [place] [address] * Check Sample (01/13/2025 2:04 AM RAM CAR OPERATOR) ABO Rh B Negative [facility] HCLL OTHER 01/13/2025 2:04 AM RAM CAR OPERATOR 01/13/2025 2:14 AM RAM CAR OPERATOR Latosha Lea MD LAB BLOOD ORDERABLES Final Result Performing Organization Address [facility] [place] [address] [facility] * N. gonorrhoeae/C. trachomatis Amplification Vaginal (01/13/2025 1:32 AM RAM CAR OPERATOR) C. trachomatis Not Detected Not Detected [facility] N. gonorrhoeae Not Detected Not Detected [facility] Comment: Interpretive Data This assay detects Chlamydia trachomatis and Neisseria gonorrhoeae by nucleic acid amplification testing (NAAT). This assay has been cleared by the [place] Food and Drug administration. The performance characteristics of this test have been verified by the [facility] Molecular Infectious Disease laboratory. The performance characteristics of this test have not been evaluated in individuals less than 14 years of age. Current Interpretive Data last revised 2023. Vaginal (None) 01/13/2025 1: 32 AM RAM CAR OPERATOR 01/13/2025 1:50 AM RAM CAR OPERATOR Latosha Lea MD LAB MICROBIOLOGY - GENERAL ORDERABLES Final Result Performing Organization Address [facility] [place] [address] [facility] * Trichomonas vaginalis PCR Vaginal (01/13/2025 1:32 AM RAM CAR OPERATOR) Pathologist [facility] Trichomonas DNA Not Detected Not Detected [facility] Comment: Interpretive Data This assay detects Trichomonas vaginalis by nucleic acid amplification testing (NAAT). This assay has been cleared by the [place] Food and Drug administration. The performance characteristics of this test have been verified by the [facility] Molecular Infectious Disease laboratory. Excess blood in specimens may be inhibitory and result in false negative results. The performance of this test has not been evaluated in women or individuals less than 18 years of age. Current Interpretive Data last revised 2023. Vaginal 01/13/2025 1:32 AM RAM CAR OPERATOR 01/13/2025 1:50 AM RAM CAR OPERATOR Latosha Lea MD LAB MICROBIOLOGY - GENERAL ORDERABLES Final Result Performing Organization Address City/[facility]/ZIP Co de Phone Number ANN MARIE [facility] [place] [address] [facility] * eGFR (01/13/2025 1:29 AM RAM CAR OPERATOR) eGFR >90 >=60 mL/min/1. 73 m2 Comment: [...] last reviewed 2021. Blood 01/13/2025 1:29 AM RAM CAR OPERATOR 01/13/2025 1:41 AM RAM CAR OPERATOR Latosha Lea MD LAB BLOOD ORDERABLES Final Result Performing Organization Address City/[facility]/ZIP Co de Phone Number [facility] [place] [address] * HIV 1/2 Antibody plus p24 Antigen Blood (01/13/2025 1:29 AM RAM CAR OPERATOR) Pathologist [facility] HIV 1/2 ab + p24 ag Nonreactive Nonreactive Comment:Nonreactive for HIV- 1 antigen and HIV-1/HIV-2 antibodies. No laboratory evidence of HIV infection. If acute HIV infection is suspected, consider testing for HIV-1 RNA. Current interpretive data was last revised on 22. Blood 01/13/2025 1:29 AM RAM CAR OPERATOR 01/13/2025 1:41 AM RAM CAR OPERATOR Latosha Lea MD LAB MICROBIOLOGY - GENERAL ORDERABLES Final Result Performing Organization Address [facility] Co de Phone Number [facility] [place] [address] * RPR Blood (01/13/2025 1:29 AM RAM CAR OPERATOR) [facility] RPR Nonreactive Nonreactive Blood 01/13/2025 1:29 AM RAM CAR OPERATOR 01/13/2025 1:41 AM RAM CAR OPERATOR Latosha Lea MD LAB MICROBIOLOGY - GENERAL ORDERABLES Final Result Performing Organization Address [facility] de Phone Number [facility] [place] [address] * (ABNORMAL) CBC without differential (01/13/2025 1:29 AM RAM CAR OPERATOR) [facility] WBC 13.2(H) 3.8 - 9.9 K/cumm Hgb 10.9(L) 11.9 - 15.5 g/dL [facility] Hct 32.5(L) 35.6 - 45.5 % [facility] Plt 236 150 - 400 K/cumm [facility] MPV 9.1 9.1 - 12.3 fL [facility] RBC 3.43(L) 3.90 - 5.20 M/cumm [facility] MCV 94.8 81.3 - 96.4 fL [facility] MCH 31.8 27.1 - 33.3 pg [facility] MCHC 33.5 32.3 - 35.7 g/dL [facility] RDW CV 13.5 11.1 - 14.9 % [facility] RDW SD 45.8 35.7 - 48.1 fL [facility] NRBC abs 0.00 0.00 - 0.01 K/cumm [facility] Blood 01/13/2025 1:29 AM RAM CAR OPERATOR 01/13/2025 1:41 AM RAM CAR OPERATOR Latosha Lea MD LAB BLOOD ORDERABLES Final Result Performing Organization Address City/[facility] Co de Phone Number [facility] [place] [address] * (ABNORMAL) Type and screen (01/13/2025 1:29 AM RAM CAR OPERATOR) [facility] Raven, indirect Positive(A) ABO Rh B Negative [facility] Blood 01/13/2025 1:29 AM RAM CAR OPERATOR 01/13/2025 1:48 AM RAM CAR OPERATOR Narrative [facility] - 01/13/2025 2:54 AM RAM CAR OPERATOR Has the patient had Daratumumab or Isatuximab in the past 6 months?->Unknown Latosha Lea MD LAB BLOOD BANK TEST ORDERA BLES Final Result Performing Organization Address [facility] Co de Phone Number [facility] [place] [address] * (ABNORMAL) Comprehensive metabolic panel (01/13/2025 1:29 AM RAM CAR OPERATOR) Pathologist [facility] Sodium 139 135 - 145 mmol/L Potassium, pl 4.0 3.3 - 4.9 mmol/L [facility] Chloride 108 97 - 110 mmol/L [facility] CO2 22 22 - 32 mmol/L [facility] Anion gap 9 2 - 15 mmol/L [facility] BUN 5(L) 6 - 25 mg/dL [facility] Creatinine 0.36(L) 0.60 - 1.10 mg/dL [facility] Glucose 117 70 - 199 mg/dL [facility] Comment: Interpretive Data Fasting glucose >/= 126 [...] classification and Diagnosis of Diabetes Diabetes Care 2021; 46: S19-S40. Current interpretive data was last revised 2022. Calcium 8.9 8.5 - 10.3 mg/dL [facility] Bilirubin, total 1.4(H) 0.1 - 1.2 mg/dL [facility] Protein, pl 7.1 6.5 - 8.5 g/dL [facility] Albumin 3.4(L) 3.5 - 5.0 g/dL [facility] Alk phos 355(H) 40 - 130 Units/L [facility] ALT 55(H) 7 - 45 Units/L [facility] AST 50(H) 10 - 45 Units/L [facility] Blood 01/13/2025 1:29 AM RAM CAR OPERATOR 01/13/2025 1:41 AM RAM CAR OPERATOR Latosha Lea MD LAB BLOOD ORDERABLES Final Result [facility] [place] [address] from Last 3 Months Insurance [email or web address] CIGNA OPEN ACCESS CIGNA OPEN ACCESS CIGNA OPEN ACCESS Advance Directives For more information, please contact: [phone] * Full Code (Latest Code Status on File) Date Activated Date Inactivated Comments 01/13/2025 12:17 AM Care Teams Car Pre Cooler Relationship Specialty Start Date End Date Unknown, Notinfile PCP - General 04/24/24 Adan Huitron DO Family Medicine 04/24/24
--- OUTSIDE RECORDS SUMMARY | 2025-01-13 14:48 | XMS_ITS | Encounter Summary ---
Author Organization [facility] Address [address] [place] [address] Care Team Providers Care Mover Helper Name Role Phone Maria G Kuhn Primary Care Provider [phone] Encounter Details Date Type Department Care Team (Late st Contact Info) Description 05/09/2024 Men's Style Labt Message Enc [facility] Family and Sports Medicine - [place] [address] [place] [address] Maria G Kuhn APNP [address] [place] [address] Yearly Visit Reminder Social History Tobacco Use [...] Author Status No 07/06/2022 8:39 AM Brooke oCrnelius RN Active * Do you have difficulty [...] Depression Total Score: 1 11/30/19 7:53 AM GRAIN ELEVATOR MAN documented as of this encounter Care Teams Mover Helper Relationship Specialty Start Date End Date Maria G Kuhn APNP [address] [place] [address] PCP - General NURSE PRACTITIONER 03/02/23 documented as of this encounter
--- OUTSIDE RECORDS SUMMARY | 2025-01-13 14:48 | XMS_ITS | Encounter Summary ---
Author Organization [facility] Address [facility] [place] [address] Care Team Providers Care Baseball Club Manager Name Role Phone Connie Raza DO Primary Care Provider [phone] Maria G Kuhn Unavailable [phone] Maria G Kuhn Primary Care Provider [phone] Encounter Details Date Type Department Care Team (Late st Contact Info) Description 01/04/2023 MyCSilverlink Communicationst Message Enc [facility] Family Medicine - [place] [phone] [facility] [place] [address] Connie Raza DO [address] [place] [address] Eye Social History Tobacco Use [...] Depression Total Score: 1 11/30/19 7:53 AM SUPPLY 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
--- OUTSIDE RECORDS SUMMARY | 2025-01-13 14:48 | XMS_ITS | Encounter Summary ---
Author Organization [facility] Address [address] [place] [address] Care Team Providers Care Forestry Pilot Name Role Phone Adan Huitron DO Primary Care Provider [phone] Adan Huitron DO Primary Care Provider [phone] Maria G Kuhn Primary Care Provider + Connie Raza DO Primary Care Provider [phone] Adan Huitron DO Unavailable [phone] Maria G Kuhn Unavailable [phone] Maria G Kuhn Primary Care Provider + Encounter Details Date Type Department Care Team (Late st Contact Info) Description 02/18/2022 MyCClickpasst Message Enc [facility] Family Medicine - [place] [address] [facility] [place] [phone] Adan Huitron DO [address] [facility] [address] [place], [place] [id number] Pressure behind Right eye Social History Tobacco [...] documented as of this encounter Care Teams Forestry Pilot Relationship Specialty Start Date End Date Adan Huitron DO PCP - General FAMILY PRACTICE 11/28/19 07/05/22 Adan Huitron DO PCP - General FAMILY PRACTICE 07/06/22 10/25/22 Maria G Kuhn APNP [address] [place] [address] PCP - General NURSE PRACTITIONER 10/26/22 11/28/22 Connie Raza DO [address] [place] [address] PCP - General FAMILY PRACTICE 11/29/22 03/01/23 Maria G Kuhn APNP [address] [place] [address] PCP - General NURSE PRACTITIONER 03/02/23 Adan Huitron DO FAMILY PRACTICE 07/06/22 11/15/22 Maria G Kuhn APNP [address] [place] [address] NURSE PRACTITIONER 03/02/23 03/02/23 documented as of this encounter
--- OUTSIDE RECORDS SUMMARY | 2025-01-13 14:48 | XMS_ITS | Clinical Summary ---
Author Organization [facility] Address [facility] [place] [address] Care Team Providers Care Pcts Name Role Phone Maria G Kuhn Primary Care Provider [phone] Allergies Active Allergy Reactions Criticality Noted Date [...] Problem Noted Date Diagnosed Date Vaginal delivery ([facility]) 07/08/2022 ([facility]) 10/28/2021 Seasonal allergic rhinitis due to pollen 020 Arthralgia of shoulder 12/06/2012 Resolved Problems Problem Noted Date Diagnosed Date Resolved Date ([facility]) 07/06/2022 07/08/20 22 Immunizations Name [...] CDT Respiratory Rate 18 11/30/2022 7:49 AM SURVEYOR GEODETIC Oxygen Saturation 98% 11/30/2022 7:49 AM SURVEYOR GEODETIC Inhaled Oxygen Concentration - - Weight 72.6 kg (160 lb) 03/02/2023 9:24 AM CDT Height 166.4 cm (5' 5.5 ) 03/02/2023 9:24 AM CDT Body Mass Index 26.22 03/02/2023 9:24 AM CDT Plan of Treatment Health Maintenance Due Date Last Done Comments PHQ-2 (Physician [place]) 2009 Hepatitis C 2015 Cervical Cancer Screening Pap Smear (Age 21 to 29) Every 3 Years 09/04/2023 09/04/2020, 09/04/2020 Cervical Cancer Screening 09/04/2023 Annual Physical 03/02/2024 03/02/2023, 02/2023, 12/05/2019 COVID-19 Vaccine ( season) 2024 02/02/2021 Influenza Adult (#1) 2024 11/30/2022, 09/13/2021, 09/04/2020, Additional history exists PHQ-2 (Physician [place]) 11/27/2024 DTaP, Tdap and Td Vaccines (8 [...] Layer (09/04/2020 12:00 AM CDT) COPATH REPORT [place] [phone] Department of Pathology Pathology Report Gynecological Cytology Report Patient Name: KARINA MUNIZ : 1995 (Age: 25) Location: [facility] Gender: F Collected Date: 09/04/2020 Med Rec #: [id number] Date Received: 09/08/2020 Date Reported: 09/14/2020 Provider: DEWAYNE HUITRON DO Final Cytologic Diagnosis Satisfactory for evaluation. Endocervical component present. Negative for Intraepithelial Lesion or Malignancy. High-risk HPV mRNA E6/E7 by Aptima assay (performed at [facility]) is reported as NOT DETECTED (see separate report for details). Electronically Signed Out By Sudhir Bashir Source of Specimen(s) Cervical/Endocervi isabell - Thin Prep Clinical History Screening, last Pap not provided. Z12.4 Date of Last Menstrual Period: June 2020 Billing Fee Code(s): A: 31867 [facility] (B) [facility] 09/04/2020 09/08/2020 8:3 9 AM CDT Comment:CERVICAL/ENDOCERVICA L - THIN PREP Dewayne Huitron DO PATHOLOGY/CYTOLOGY ORDERABLES Final Result [facility] [address] [place] [address], [place] [phone] from Last 3 Months or Most Recently Relevant to Health Maintenance Insurance [employer] Member Subscriber Plan / Payer (Ef fective 2021-Present) Name:Karina Fallon Relation to Subscriber:Self Name:Karina Fallon Payer ID:Not on file Type:Not on file Address: [place] [phone] [email or web address] [facility] Advance Directives * Full Code (Latest Code Status on File) Date Activated Date Inactivated Comments 07/06/2022 7:04 AM 07/08/2022 7:57 PM Care Teams Pcts Relationship Specialty Start Date End Date Maria G Kuhn APNP [address] [place] [address] PCP - General NURSE PRACTITIONER 03/02/23
== END 2025-01-12 23:25 | disposition short-term general hospital (02) ==
LOC: ANHOBPP 18:16 → ANHLDR 23:53
PROVIDERS: Admitting Provider Obstetrics & Gynecology; Visit Provider Obstetrics & Gynecology
DX: O60.03 Preterm labor without delivery, third trimester (principal); Z3A.34 34 weeks gestation of pregnancy; Z11.4 Encounter for screening for human immunodeficiency virus [HIV]
CPT/HCPCS: 36415; 80053; 81001; 85027; 86592; 86703; 86850; 86880; 86900; 86901; 96361; 96365; 96372; A9270; G0378; G0379; G0432; J0290; J0702; J3105; J7120

== ENCOUNTER 2025-01-20 12:25 | Outpatient (RCR) | payer OTHER, SELFPAY ==
[2025-01-17 09:01] VITALS: PULSE 98
[2025-01-20 13:41] VITALS: BP 125/76; PULSE 93
== END 2025-03-19 17:17 | disposition home or self-care (01) ==
LOC: ANHOBOP 12:25
PROVIDERS: Visit Provider Obstetrics & Gynecology
DX: O26.643 Intrahepatic cholestasis of pregnancy, third trimester (principal); Z3A.35 35 weeks gestation of pregnancy
CPT/HCPCS: 59025

== ENCOUNTER 2025-01-22 15:13 | Inpatient (IN) | payer OTHER, SELFPAY ==
[2025-01-22] VITALS (16 sets, daily range): BP systolic 114–128; BP diastolic 61–76; PULSE 92–109; RESP 16; TEMP 36.8–37.3; BMI 28.1
--- NOTE | 2025-01-22 17:21 | LDADM ---
This patient, Karina Fallon, was admitted to Labor/Delivery/Recovery 103 on 01/22/25 at 15:13. Plans for labor, pain management and were discussed with patient. Patient/family oriented to hospital policies and general routines including ID bracelet, bed and alarms, visiting hours, pain management, procedures, bathroom and other care routines, personal items, smoking policy, room service/diet and guest tray routines, infant security routines, and visiting hours. Patient/Family are encouraged to report perceived risks to care and to ask questions if they do not understand what they are told or what they should do. See [facility] for further documentation.
[2025-01-22 17:50] LABS: Basophils Absolute Auto 0.1 K/mm3 (0.0-0.1); Basophils Percent Auto 0.5 % (0.2-1.2); Eosinophils Absolute Auto 0.1 K/mm3 (0-0.3); Eosinophils Percent Auto 0.7 % (0-4.4); Hematocrit 33.3 % (37.0-47.0); Hemoglobin 11.3 g/dL (12.0-15.0); Immature Granulocyte Absolute 0.08 K/mm3 (0.00-0.031); Immature Granulocyte Percent A 0.7 % (0-0.5); Lymphocytes Absolute Auto 4.46 K/mm3 (0.9-3.2); Lymphocytes Percent Auto 41.3 % (18.3-44.2); Mean Corpuscular HGB Conc 33.9 g/dl (32-36); Mean Corpuscular Hemoglobin 32.5 pg (26-34); Mean Corpuscular Volume 95.7 fl (80-100); Mean Platelet Volume 9.1 fl (7.4-10.4); Monocytes Absolute Auto 0.7 K/mm3 (0.1-0.6); Monocytes Percent Auto 6.4 % (2.6-8.5); Neutrophils Absolute Auto 5.4 K/mm3 (1.3-6.7); Neutrophils Percent Auto 50.4 % (45.5-73.1); Platelet Count Result 262 k/mm3 (150-375); Red Blood Count 3.48 M/mm3 (4.2-5.4); Red Cell Distribution Width 13.4 % (11.5-14.5); White Blood Count 10.8 K/mm3 (4.5-10.0)
--- OUTSIDE RECORDS SUMMARY | 2025-01-22 18:01 | XMS_ITS | Clinical Summary ---
Author Organization [facility] Address [facility] [place] [address] Care Team Providers Care Drier Operator Name Role Phone Maria G Kuhn Primary Care Provider [phone] Allergies Active Allergy Reactions Criticality Noted Date [...] Problem Noted Date Diagnosed Date Vaginal delivery ([facility]) 07/08/2022 ([facility]) 10/28/2021 Seasonal allergic rhinitis due to pollen 020 Arthralgia of shoulder 12/06/2012 Resolved Problems Problem Noted Date Diagnosed Date Resolved Date ([facility]) 07/06/2022 07/08/20 22 Immunizations Name Administration [...] CDT Respiratory Rate 18 11/30/2022 7:49 AM 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 Oxygen Saturation 98% 11/30/2022 7:49 AM 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 Inhaled Oxygen Concentration - - Weight 72.6 kg (160 lb) 03/02/2023 9:24 AM CDT Height 166.4 cm (5' 5.5 ) 03/02/2023 9:24 AM CDT Body Mass Index 26.22 03/02/2023 9:24 AM CDT Plan of Treatment Health Maintenance Due Date Last Done Comments PHQ-2 (Physician [place]) 2009 Hepatitis C 2015 Cervical Cancer Screening Pap Smear (Age 21 to 29) Every 3 Years 09/04/2023 09/04/2020, 09/04/2020 Cervical Cancer Screening 09/04/2023 Annual Physical 03/02/2024 03/02/2023, 02/2023, 12/05/2019 COVID-19 Vaccine ( season) 2024 02/02/2021 Influenza Adult (#1) 2024 11/30/2022, 09/13/2021, 09/04/2020, Additional history exists PHQ-2 (Physician [place]) 11/27/2024 DTaP, Tdap and Td Vaccines (8 [...] Layer (09/04/2020 12:00 AM CDT) COPATH REPORT [place] [address] [phone] Department of Pathology Pathology Report Gynecological Cytology Report Patient Name: KARINA MUNIZ : 1995 (Age: 25) Location: [facility] Gender: F Collected Date: 09/04/2020 Med Rec #: [id number] Date Received: 09/08/2020 Date Reported: 09/14/2020 Provider: DEWAYNE HUITRON DO Final Cytologic Diagnosis Satisfactory for evaluation. Endocervical component present. Negative for Intraepithelial Lesion or Malignancy. High-risk HPV mRNA E6/E7 by Aptima assay (performed at [facility]) is reported as NOT DETECTED (see separate report for details). Electronically Signed Out By Sudhir Bashir Source of Specimen(s) Cervical/Endocervi isabell - Thin Prep Clinical History Screening, last Pap not provided. Z12.4 Date of Last Menstrual Period: June 2020 Billing Fee Code(s): A: 83646 [facility] (B) [facility] 09/04/2020 09/08/2020 8:3 9 AM CDT Comment:CERVICAL/ENDOCERVICA L - THIN PREP Dewayne Huitron DO PATHOLOGY/CYTOLOGY ORDERABLES Final Result [facility] [address] [place] [address], [place] [phone] from Last 3 Months or Most Recently Relevant to Health Maintenance Insurance [employer] Member Subscriber Plan / Payer (Ef fective 2021-Present) Name:Karina Fallon Relation to Subscriber:Self Name:Karina Fallon Payer ID:Not on file Type:Not on file Address: [place] [phone] [email or web address] [facility] Advance Directives * Full Code (Latest Code Status on File) Date Activated Date Inactivated Comments 07/06/2022 7:04 AM 07/08/2022 7:57 PM Care Teams Drier Operator Relationship Specialty Start Date End Date Maria G Kuhn APNP [address] [place] [address] PCP - General NURSE PRACTITIONER 03/02/23
--- OUTSIDE RECORDS SUMMARY | 2025-01-22 18:01 | XMS_ITS | Encounter Summary ---
Author Organization [facility] Address [address] [place] [id number] Care Team Providers Care Junction Maker Name Role Phone , Generic Dex LORA Primary Care Provider Unavailable Adan Huitron DO Primary Care Provider [phone] Adan Huitron DO Primary Care Provider + Poirot, Maria G APNP Primary Care Provider + RyConnie carter DO Primary Care Provider + [phone] Adan Huitron DO Unavailable + 10 Poirot, Maria G APNP Unavailable + 70 Poirot, Maria G APNP Primary Care Provider + Encounter Details Date Type Department Care Team (Late st Contact Info) Description 09/30/2017 [place] [address] , Generic ConversionMD Social History Tobacco Use [...] documented as of this encounter Care Teams Junction Maker Relationship Specialty Start Date End Date Tangela Lora MD PCP - General 01/01/16 Adan Huitron DO PCP - General FAMILY PRACTICE 11/28/19 07/05/22 Adan Huitron DO PCP - General FAMILY PRACTICE 07/06/22 10/25/22 Maria G Kuhn APNP [address] [place] [address] PCP - General NURSE PRACTITIONER 10/26/22 11/28/22 [place] [address] [place] [address] [phone] PCP - General FAMILY PRACTICE 11/29/22 03/01/23 Maria G Kuhn APNP [address], [place] [phone] PCP - General NURSE PRACTITIONER 03/02/23 Adan Huitron DO FAMILY PRACTICE 07/06/22 11/15/22 Maria G Kuhn APNP [address], [place] [phone]- NURSE PRACTITIONER 03/02/23 03/02/23 documented as of this encounter
--- OUTSIDE RECORDS SUMMARY | 2025-01-22 18:01 | XMS_ITS | Clinical Summary ---
Author Organization [facility] [address] Address [address] [place] [id number] Care Team Providers Care Marketing Performance Analyst Name Role Phone Unknown, Notinfile Primary Care Provider Unavail able Adan Huitron DO Unavailable Allergies Active Allergy Reactions Criticality Noted Date Comments Benzoyl Peroxide-Aloe Vera Hives Medium 4 Benzoyl Peroxide-Sulfur Itching,Rash Medium 11/19/2021 Mold Other (See comments) Low 02/18/2022 Unknown Medications loratadine (CLARITIN) 10 mg tablet Active 123/iron/folic /omeg3s (ONE-A-DAY WOMEN'S 1 ORAL) 1 Active fish oil-dha-epa 1,200-144-216 mg capsule Take by mouth Active multivitamin tabletIndicati ons:Vitamin Deficiency Prevention Take 1 tablet by mouth Active fexofenadine (JOSE) 60 mg tablet Take 1 tablet (60 mg total) by mouth daily Active ofloxacin (OCUFLOX) 0.3 % ophthalmic solutionIndica tions:Hordeolu m externum left lower eyelid instill 2 drops in left eye every 4 hours for 2 days, then 2 drops 4 times daily on days 3 through 7 5 mL 4 Active ursodioL (JAIME FORTE) 500 mg tablet Take 1 tablet (500 mg total) by mouth 3 (three) times a day 5 Active ursodioL (ACTIGALL) 300 mg capsule Take 1 capsule (300 mg total) by mouth 2 (two) times a day 60 capsule 11 5 01/14/20 25 Discontinued ursodioL (JAIME FORTE) 500 mg tablet Take 1 tablet (500 mg total) by mouth 2 (two) times a day 60 capsule 11 5 01/20/20 25 Discontinued Active Problems Problem Noted Date Diagnosed Date 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 [] Full MFM Care; [] Red Team [] Blue Team Referring Provider: F/U from [facility] Primary OB: Lalita Claudio [phone] [] or Medicare Insurance [x] Dating Criteria: LMP 05/15/24 with LONI 02/19/25 [x] Labs: Rh [B-], Ab [negative], Rubella [immune], HIV [non-reactive], HepBSAg [non-reactive], HepBSAb [not done], HepBCAb [not done], RPR [non- reactive], Hep C [not done], Varicella [positive], GC/CT [not done] [x] Aneuploidy Screenin08/23/24 NIPT low risk [x] Carrier Screening: CF negative, SMA negative [] Hgb electrophoresis: [x] CBC/Hgb: 13.2/39.1/plt 260 [] Early 1hr GTT (if indicated): [x] UCx: 01/13/25: negative [x] Pap: 06/29/23: NILM [] LD ASA (if indicated): [] EPDS [ ]; PNBHS referral (if indicated): 2nd Trimester [] Anatomy ultrasound: [x] CBC/1hr gtt at 24-28wks: 11/29/24: 11.3/33.7/plt 258, GTT 59, Rh [B-], Ab [negative], RPR [non-reactive], HIV [non-reactive] [] Rhogam at 28 wks (if Rh neg): 3rd Trimester [x] CBC/HIV/RPR/T&S: 01/12/25: Rh [B-], Ab [positive], RPR [non-reactive], HIV [non-reactive], 11.1/32.6/plt 230 [x] GBS: 01/13/25: negative [x] GC/CT (if indicated): 01/13/25 negative/negative [] testing: Counseling [] MOD: [] Place of delivery: [] Epidural: [] Accepts Blood Products: [] Stop ASA: [] MOC: [] Method of feeding: [] Security Site Supervisor (specifically which provider): [] PP Depression Discussed: [] PP visits scheduled: Vaccines [x] Flu Shot (Jul-Oct): received 08/27/24 [] COVID vaccine: [] Tdap (27-36wks): [] RSV vaccine (32-36wks): [] PP HPV vaccine counseling (<=26 yo): Threatened labor, third trimester 2024 Acute non-recurrent maxillary sinusitis 11/19/20 21 Assessment & Plan (11/19/2021 8:28 AM FISH GRADER): -amoxicillin 500 b.i.d. -continue the loratadine -continue to Tylenol -drink plenty of fluids -notify your provider if you do not improve Arthralgia of elbow 03/18/2013 Arthralgia of shoulder 12/06/2012 Estimated Date of Delivery Comme nts Yes 02/19/2025 Based on Other B asis, patient reported based on LMP=1st trimester ultrasound (~11w) Encounters Date Type Department Care Team Description 01/20/2025 Orders Only [facility] 1 [place] [address] Keya Regalado MD Intrahepatic cholestasis of in third trimester (Primary Dx) 01/17/2025 3:40 PM FISH GRADER Lab [facility] [address] [place] [phone] Intrahepatic cholestasis of in third trimester 01/14/2025 1:00 PM FISH GRADER Ancillary Procedure [facility] 1 [facility] 5th [place] [address] 01/13/2025 6:59 AM FISH GRADER Anesthesia Event [facility] 1 [place] [address] Argentina Rodriguez MD 01/13/2025 - 01/14/2025 2:37 PM FISH GRADER Hospital Encounter [address] [address] Latosha Lea MD Bligard, Katherine Hollister, MD Intrahepatic cholestasis of in third trimester (Primary Dx) Discharge Disposition: Discharge to home or self care 01/12/2025 2:16 PM FISH GRADER - 01/12/2025 11:59 PM FISH GRADER Hospital Encounter [facility] B[facility] [phone] Emergency, Room R Discharge Disposition: Discharge to home or self care from Last 3 Months Immunizations Immunization Administration Dates Next Due DTaP / IPV 07/09/2001,1997,1997 DTaP, Unspecified 07/27/2001, 8,1997,08/27,1997 HPV, Quadrivalent 03/08/2010,08/13/2008,05/13/20 08 Hep A, Unspecified 07/01/2003,12/27/2002 HiB 09/17/1998, 7,1997,05/27 Influenza, Quadrivalent, Spl it, Preservative Free, Intramuscular 11/30/2022,09/13/2021,09/04/2020,12/05 Influenza, Split 11/17/1999 Influenza, Unspecified 08/27/2024,10/17/2012,11/2006 MMRV 07/09/2001,09/17/1998 Meningococcal MCV4P (Menactra) 05/13/2008 OPV 09/17/1998 OPV, Unspecified 09/17/1998 Tdap 09/13/2021,05/13/2008 Social History Tobacco Use Types Packs/Day Years [...] often do you attend chur ch or adventist services? 1 to 4 times per year 01/13/2025 Do you belong to any clubs o r organizations such as voodoo groups, unions, fraternal or athletic groups, or [...] any time in the past 12 m [facility], were you homeless or living in a correction (including now)? No 01/13/2025 Personal Safety Answer [...] on file Legal Sex Female 6:53 AM FISH GRADER Gender Identity Not on file Sexual Orientation Not on file Obstetrics History Para Term AB IAB SAB Ectopic Multiple Livin g Live Births 2 1 1 0 0 0 0 0 1 1 Date Outcome GA Total Labor Labor/2nd/3rd Weight Sex Type Anes PTL Cindy A1 A5 Name Clin 2021 Term 40w 4d 6h 36m 5h 10m/1h 21m/0h 05m 3.541 kg (7 lb 12.9 oz) M Vag-S pont Epidur al N Livin g 8 9 BIBI S,BOY KARINA Mica on D Nevaeh rdavi s CNM Complications:None Delivery Location:[facility] ([facility]) Current Summary Episode Dates Number of Fetuses Estimated Date of Delivery 01/13/2025 - Present (01/22/2025) 02/19/2025 (set by Berenice Coombs MD on 01/13/2025 based on Other Basis) Dating Summary Based On LONI GA Diff Other Basis 02/19/2025 Working Comment:patient reported bas ed on LMP=1st trimester ultrasound (~11w) Last Menstrual Period on 05/15/2024 02/19/2025 Same Ultrasound on 07/22/2024 02/22/2025 -3d GA:9w2d Ultrasound on 10/09/2024 02/16/2025 +3d GA:21w3d Vitals Pregravid Weight Height TWG (As of 01/22/2025) Pregrav id BMI 165.1 cm (5' 5 ) Date GA Fund Present FHR Mvmt BP Weight Edema Alb Glu Ket Dil/ Eff/Sta 5 34w6d Inpatient data not displayed here. See encounter summary. Notes Progress Notes - Abstract - 01/21/2025 - GA:35w6d 01/21/2025 - 35w6d - Pretty Cervantes RMA Current OB records are under media tab. 01/13 admission records are in Epic. GRADER Progress Notes - Hospital En counter - 01/14/2025 - GA:34w6d 01/14/2025 - 34w6d - Berenice Coombs MD R2 Update To bedside for contractions. Reporting painful contractions every 2-3 minutes. Denies LOF or VB. SVE stable -2. Recommended PO hydration. Patient okay with plan. Berenice Coombs MD PGY-2 Obstetrics & Gynecology GRADER 01/14/2025 - wd - Sharon Gomes MD Antepartum Progress Note Gestational Age: 34w6d Admission Date: 01/13/2025 Length of stay: 1 Brief HPI: 29 y.o. female at 34w6d gestation admitted for threatened labor also complicated by Rh negative Transitioned from labor to [facility] yesterday morning 01/13 SUBJECTIVE - Reports active movement. No vaginal bleeding/leakage of fluid. - Contractions started around 530 this am, SVE by Dr. Coombs per patient was unchanged - Rating contractions 3/10 for pain Review of Systems Negative except as per above. OBJECTIVE Vitals: Temp Min: 36.4 C (97.6 F) Max: 36.8 C (98.2 F) Pulse Min: 86 Max: 100 BP Min: 102/57 Max: 127/58 Resp Min: 16 Max: 18 SpO2 Min: 92 % Max: 98 % FHR: cEFM reactive , on monitor this am, reassuring, few variables [place]: irregular contractions Physical Exam General: No acute distress. Cardiovascular: Normal rate, regular rhythm Lungs: Non-labored. Abdomen: Soft, non-tender, gravid. Extremities: Warm and well-perfused. Pelvic: SVE /-2, exam by Dr. Coombs 20 min prior to my evaluation Neurologic: Alert and oriented x4, non-focal Lab Review: No results found for this or any previous visit (from the past 24 hours). ASSESSMENT/PLAN Karina Fallon is a 29 y.o. at 34w6d transferred for tPTL. #tPTL - presented w/ contractions q2-5 - SVE 3 cm > 4/70/-2 at OSH - admit SVE 4/50/-2 - s/p terbutaline x2, nifedipine 20 mg, 2 g ampicillin, and BMZ x1 at OSH - denies VB, LOF - tocolysis not indicated - wet prep negative - UCx NGTD -GC/CT/Trich neg Plan: - BMZ^11/13 @1930 #transaminitis, POA - OSH ALT/AST 64/63 on 01/08 > 57/49 on 01/12 - patient reporting palmar and plantar itchiness - admission ALT/AST 55/50 - possibly iso ICP, other etiologies include hepatitis infection, gallstone, hypertensive disorder unlikely Plan: - bile acids pending (01/13), qD CMP - if transaminitis worsening consider [...] -MOF: breast -MOD: anticipate vaginal -MOC: Alethea Gomes MD Cosigned by Keya Regalado MD at 01/14/2025 2:49 PM FISH GRADER GRADER GRADER Associated attestation - Keya Regalado MD - 01/14/2025 2:49 PM FISH GRADER MFM Attending Attestation I have seen and examined the patient, Karina Fallon, on 01/14/2025 and I am in agreement with the plan as documented in the resident/fellow/TEODORO's note. Denies painful contractions. Itching persists. BA 22 today which is consistent with ICP. Will start ursodiol and plan for repeat CMP/BA in 2 weeks and delivery at 37w. Already has twice weekly NSTs with primary OB. Keya Regalado MD 01/14/2025 01/13/2025 - 34w5d - Brenda Malone MD Transfusion Medicine Blood Bank Note Patient Information: ABO/Rh: B negative Antibody screen: Positive Previous antibodies: Present/known: passive anti- D (identified 07/06/2022 at OSH) New antibodies identified: passive anti-D Additional testing performed: None Relevant Patient History: Karina Fallon is a 29 y.o. woman 34w5d who was transferred from OSH on 01/13/2025 with threatened labor and elevated LFTs. She received rhogam at 28 weeks. The patient has no history of blood transfusions on record. Testing Information: The antibody screen was positive. Antibody identification demonstrated antibodies against the D antigen in the patient's plasma. Additional testing was not performed. Detection of anti-D in this patient's plasma is consistent with the patient's known history of RhIg administration at 28 week gestation and is therefore categorized as a passive anti-D. All other common, clinically significant antibodies have been ruled out. Clinical Relevance: RhIg is a biologic prepared from human plasma that consists of concentrated antibodies directed against the D antigen on red blood cells. Anti-D antibodies may be implicated in hemolytic transfusion reactions with extravascular hemolysis and hemolytic disease of the fetus and . Therefore, anti-D antibodies attributable to RhIg administration may generally be considered clinically significant as long as the passively acquired anti-D is present in the patient's plasma. Therapeutic Relevance: ABO/Rh and crossmatch compatible red blood cell units will be provided for future transfusions. Contact Information: Please contact the [facility] Transfusion Medicine Service at (option 1) with any questions. This report has been prepared by: Brenda Powell MD Cosigned by Gissell Patterson DO at 01/14/2025 2:20 PM FISH GRADER GRADER GRADER Associated attestation - Gissell Patterson DO - 01/14/2025 2:20 PM FISH GRADER Attestation: I have personally reviewed the antibody result and agree with the interpretation contained in this written blood bank report. Gissell Patterson DO 01/13/2025 - 34w5d - Berenice Coombs MD [...] % Max: 98 % FHR: cEFM reactive [place]: irregular contractions Physical Exam General: No acute [...] negative Plan: - Ucx/GC/CT/trich ordered - BMZ^11/13 @1929 #transaminitis, POA - OSH ALT/AST 64/63 on [...] Keya Regalado MD at 01/13/2025 11:02 AM FISH GRADER GRADER GRADER Associated attestation - Keya Regalado MD - 01/13/2025 11:02 AM FISH GRADER MFM Attending Attestation I have seen and examined the patient, Karina Fallon, on 01/13/2025 and I am in agreement with the plan as documented in the resident/fellow/TEODORO's note. Keya Regalado MD 01/13/2025 Last Filed Vital Signs Vital Sign Reading Time Taken Comments Blood Pressure 123/67 01/14/2025 11:50 AM FISH GRADER Pulse 90 01/14/2025 11:50 AM FISH GRADER Temperature 36.7 C (98.1 F) 01/14/2025 11:50 AM FISH GRADER Respiratory Rate 16 01/14/2025 11:50 AM FISH GRADER Oxygen Saturation 99% 01/14/2025 11:50 AM FISH GRADER Inhaled Oxygen Concentration - - Weight 77.6 kg (171 lb) 01/13/2025 1:35 AM FISH GRADER Height 165.1 cm (5' 5 ) 01/13/2025 12:07 AM FISH GRADER Body Mass Index 28.46 01/13/2025 12:07 AM FISH GRADER Plan of Treatment Upcoming Encounters Date Type Department Care Team (Late st Contact Info) Description 02/19/2025 11:38 PM CDT Hospital Encounter [address] [phone] Latosha Lea MD [address] [address] Health Maintenance Due Date Last Done Comments [...] Procedure Name Priority Date/Time Associated Diagnosis Comments EGFR Routine 01/17/2025 1:57 PM FISH GRADER Intrahepatic cholestasis of in third trimester COMPREHENSIVE METABOLIC PANEL Routine 01/17/2025 1:57 PM FISH GRADER Intrahepatic cholestasis of in third trimester BILE ACIDS, TOTAL Routine 01/17/2025 1:5 7 PM FISH GRADER Intrahepatic cholestasis of in third trimester US OB 14 WEEKS OR OVER IP Routine 1:32 PM FISH GRADER EGFR Timed 01/14/2025 8:23 AM FISH GRADER COMPREHENSIVE METABOLIC PANEL Timed 01/14/2025 8:23 AM FISH GRADER ANTIBODY IDENTIFICATION Routine 01/13/2025 2:54 AM FISH GRADER URINE CULTURE Routine 01/13/2025 2:07 AM FISH GRADER B CHECK SAMPLE STAT 01/13/2025 2:04 AM FISH GRADER TRICHOMONAS VAGINALIS PCR Routine 01/13/2025 1:32 AM FISH GRADER N. GONORRHOEAE/C. TRACHOMATIS AMPLIFICATION Routine 01/13/2025 1:32 AM FISH GRADER GROUP B STREPTOCOCCUS CULTURE Routine 01/13/2025 1:32 AM FISH GRADER EGFR STAT 01/13/2025 1:29 AM FISH GRADER BILE ACIDS, TOTAL Timed 01/13/2025 1:2 9 AM FISH GRADER COMPREHENSIVE METABOLIC PANEL STAT 01/13/2025 1:29 AM FISH GRADER TYPE AND SCREEN Timed 01/13/2025 1:29 AM FISH GRADER CBC WITHOUT DIFFERENTIAL Routine 01/13/2025 1:29 AM FISH GRADER RPR Routine 01/13/2025 1:29 AM FISH GRADER HIV 1/2 ANTIBODY PLUS P24 ANTIGEN Routine 01/13/2025 1:29 AM FISH GRADER GTT 50GM 1HR GESTATIONAL SCREEN Routine 11/29/2024 CBC WITHOUT DIFFERENTIAL Routine 11/29/2024 HIV 1/2 ANTIBODY PLUS P24 ANTIGEN Routine 11/29/2024 from Last 3 Months Results * eGFR (01/17/2025 1:57 PM FISH GRADER) Pathologist [facility] eGFR >90 >=60 mL/min/1. 73 m2 Comment: [...] interpretive data was last reviewed 2021. Blood 01/17/2025 1:57 PM FISH GRADER 01/17/2025 2:42 PM FISH GRADER us Keya Regalado MD LAB BLOOD ORDERAB LES Final Result Performing Organization Address City/[facility]/ZIP Co de Phone Number [facility] [place] [address] * (ABNORMAL) Bile acids (01/17/2025 1:57 PM FISH GRADER) [facility] Bile acids 55(H) <=10 mcmol/L [facility] ref Lab Comment: Test Performed by: [place] [address] Film Examiner: Mayuri Stone Ph.D.; CLIA# [id number] Blood 01/17/2025 1:57 PM FISH GRADER 01/17/2025 4:11 PM FISH GRADER Narrative [facility] - 01/19/2025 1:02 PM FISH GRADER sent 1.0 ml serum us Keya Regalado MD LAB BLOOD ORDERAB LES Final Result [facility] [place] [address] [place] ref Lab * (ABNORMAL) Comprehensive metabolic panel (01/17/2025 1:57 PM FISH GRADER) Pathologist [facility] Sodium 138 135 - 145 mmol/L Potassium, pl 3.8 3.3 - 4.9 mmol/L [facility] Chloride 103 97 - 110 mmol/L [facility] CO2 27 22 - 32 mmol/L [facility] Anion gap 8 2 - 15 mmol/L [facility] BUN 7 6 - 25 mg/dL [facility] Creatinine 0.53(L) 0.60 - 1.10 mg/dL [facility] Glucose 91 70 - 199 mg/dL [facility] Comment: Interpretive Data Fasting glucose >/= 126 [...] interpretive data was last revised 2022. Calcium 9.1 8.5 - 10.3 mg/dL [facility] Bilirubin, total 0.9 0.1 - 1.2 mg/dL [facility] Protein, pl 7.2 6.5 - 8.5 g/dL [facility] Albumin 3.5 3.5 - 5.0 g/dL [facility] Alk phos 309(H) 40 - 130 Units/L [facility] ALT 105(H) 7 - 45 Units/L [facility] AST 58(H) 10 - 45 Units/L [facility] Blood 01/17/2025 1:57 PM FISH GRADER 01/17/2025 2:39 PM FISH GRADER us Keya Regalado MD LAB BLOOD ORDERAB LES Final Result [facility] Department [place] [address] * US Ob 14 Weeks Or Over (01/14/2025 1:32 PM FISH GRADER) Fetus# Fetus1 [facility] Estimated Weight 2,817 g&grams [facility] Placenta Details anterior, Previa-no, no placental masses [facility] Presentation Vertex [facility] Anatomical Region Laterality Modality Abdomen N/A Ultrasound 01/14/2025 1:32 PM FISH GRADER Impressions 01/14/2025 3:03 PM FISH GRADER IUP at 34w 6d. 1. Biometric measurements corresponded to established dates. 2. No malformations or soft markers for aneuploidy were seen at this time, within the limits of ultrasound. The exam is incomplete and limited by size. 3. The AFV volume measured within normal limits. Narrative Procedure Note Jessica Lowry MD - 01/14/2025 IMPRESSION: IUP at 34w 6d. 1. Biometric measurements corresponded to established dates. 2. No malformations or soft markers for aneuploidy were seen at thistime, within the limits of ultrasound. The exam is incompleteand limited by size. 3. The AFV volume measured within normal limits. us Keya Regalado MD IMG OB US PROCEDU RES Final Result * eGFR (01/14/2025 8:23 AM FISH GRADER) eGFR >90 >=60 mL/min/1. 73 m2 Comment: [...] of Race in Diagnosing Kidney Disease, JASN 202). The CKD-EPI equation should not be used for patients with unstable renal function and has not been validated in children and those over 70. Current interpretive data was last reviewed 2021. Blood 01/14/2025 8:23 AM FISH GRADER 01/14/2025 8:42 AM FISH GRADER us Sharon Gomes MD LAB BLOOD ORDERABLES Fi nal Result [facility] Department [place] [address] * (ABNORMAL) Comprehensive metabolic panel (01/14/2025 8:23 AM FISH GRADER) Sodium 138 135 - 145 mmol/L Potassium, pl 3.7 3.3 - 4.9 mmol/L [facility] Chloride 106 97 - 110 mmol/L [facility] CO2 22 22 - 32 mmol/L [facility] Anion gap 10 2 - 15 mmol/L [facility] BUN 5(L) 6 - 25 mg/dL [facility] Creatinine 0.34(L) 0.60 - 1.10 mg/dL [facility] Glucose 172 70 - 199 mg/dL [facility] Comment: Interpretive Data Fasting glucose >/= 126 [...] interpretive data was last revised 2022. Calcium 9.0 8.5 - 10.3 mg/dL [facility] Bilirubin, total 1.2 0.1 - 1.2 mg/dL [facility] Protein, pl 7.2 6.5 - 8.5 g/dL [facility] Albumin 3.6 3.5 - 5.0 g/dL [facility] Alk phos 334(H) 40 - 130 Units/L [facility] ALT 69(H) 7 - 45 Units/L [facility] AST 51(H) 10 - 45 Units/L [facility] Blood 01/14/2025 8:23 AM FISH GRADER 01/14/2025 8:42 AM FISH GRADER Sharon Gomes MD LAB BLOOD ORDERABLES Fi nal Result Performing Organization Address [facility] de Phone Number [facility] [place] [address] * Antibody identification (01/13/2025 2:54 AM FISH GRADER) Antibody ID 1 Passive Anti-D Blood 01/13/2025 2:54 AM FISH GRADER 01/13/2025 2:54 AM FISH GRADER Latosha Lea MD LAB BLOOD BANK TEST ORDERA BLES Final Result Performing Organization Address [facility] de Phone Number [facility] [place] [address] * Urine culture Urine, clean voided (01/13/2025 2:07 AM FISH GRADER) Report Final Report: Less than 100,000 colonies/mL (clinically insignificant growth based on current clinical standards) Organism (CLINICALLY INSIGNIFICANT GROWTH [facility] Urine, clean voided 01/13/2025 2:07 AM FISH GRADER 01/13/2025 2:26 AM FISH GRADER Narrative [facility] - 01/14/2025 7:17 AM FISH GRADER Indications for Culture:-> patient Testing performed by [facility] Microbiology Laboratory ([phone]) Latosha Lea MD LAB MICROBIOLOGY - GENERAL ORDERABLES Final Result Performing Organization Address [facility] Co de Phone Number [facility] [place] [address] * Check Sample (01/13/2025 2:04 AM FISH GRADER) ABO Rh B Negative [facility] HCLL OTHER 01/13/2025 2:04 AM FISH GRADER 01/13/2025 2:14 AM FISH GRADER Latosha Lea MD LAB BLOOD ORDERABLES Final Result Performing Organization Address [facility] Co [place] [address] [facility] * N. gonorrhoeae/C. trachomatis Amplification Vaginal (01/13/2025 1:32 AM FISH GRADER) C. trachomatis Not Detected Not Detected [facility] N. gonorrhoeae Not Detected Not Detected [facility] Comment: Interpretive Data This assay detects Chlamydia trachomatis and Neisseria gonorrhoeae by nucleic acid amplification testing (NAAT). This assay has been cleared by the [place] Food and Drug administration. The performance characteristics of this test have been verified by the [facility] Molecular Infectious Disease laboratory. The performance characteristics of this test have not been evaluated in individuals less than 14 years of age. Current Interpretive Data last revised 2023. Vaginal (None) 01/13/2025 1: 32 AM FISH GRADER 01/13/2025 1:50 AM FISH GRADER Latosha Lea MD LAB MICROBIOLOGY - GENERAL ORDERABLES Final Result Performing Organization Address [facility] de Phone Number ANN MARIE [facility] [place] [address] [facility] * Trichomonas vaginalis PCR Vaginal (01/13/2025 1:32 AM FISH GRADER) Trichomonas DNA Not Detected Not Detected [facility] Comment: Interpretive Data This assay detects Trichomonas vaginalis by nucleic acid amplification testing (NAAT). This assay has been cleared by the [place] Food and Drug administration. The performance characteristics of this test have been verified by the [facility] Molecular Infectious Disease laboratory. Excess blood in specimens may be inhibitory and result in false negative results. The performance of this test has not been evaluated in women or individuals less than 18 years of age. Current Interpretive Data last revised 2023. Vaginal 01/13/2025 1:32 AM FISH GRADER 01/13/2025 1:50 AM FISH GRADER Latosha Lea MD LAB MICROBIOLOGY - GENERAL ORDERABLES Final Result Performing Organization Address [facility] Co de Phone Number ANN MARIE [facility] [place] [address] [facility] * Group B streptococcal culture Vaginal/Rectal (01/13/2025 1:32 AM FISH GRADER) Report Final Report: Negative Vaginal/Rectal 01/13/2025 1: 32 AM FISH GRADER 01/13/2025 2:29 AM FISH GRADER Narrative ANN MARIE [facility] - 01/15/2025 8:41 PM FISH GRADER Testing performed by [facility] ([phone]). Latosha Lea MD LAB MICROBIOLOGY - GENERAL ORDERABLES Final Result Performing Organization Address [facility] Co de Phone Number [facility] [place] [address] * eGFR (01/13/2025 1:29 AM FISH GRADER) eGFR >90 >=60 mL/min/1. 73 m2 Comment: [...] of Race in Diagnosing Kidney Disease, JASN 202). The CKD-EPI equation should not be used for patients with unstable renal function and has not been validated in children and those over 70. Current interpretive data was last reviewed 2021. Blood 01/13/2025 1:29 AM FISH GRADER 01/13/2025 1:41 AM FISH GRADER Latosha Lea MD LAB BLOOD ORDERABLES Final Result Performing Organization Address City/[facility] Co de Phone Number [facility] [place] [address] * HIV 1/2 Antibody plus p24 Antigen Blood (01/13/2025 1:29 AM FISH GRADER) HIV 1/2 ab + p24 ag Nonreactive Nonreactive Comment:Nonreactive for HIV- 1 antigen and HIV-1/HIV-2 antibodies. No laboratory evidence of HIV infection. If acute HIV infection is suspected, consider testing for HIV-1 RNA. Current interpretive data was last revised on 22. Blood 01/13/2025 1:29 AM FISH GRADER 01/13/2025 1:41 AM FISH GRADER Latosha Lea MD LAB MICROBIOLOGY - GENERAL ORDERABLES Final Result Performing Organization Address [facility] de Phone Number [facility] [place] [address] * (ABNORMAL) Bile acids (01/13/2025 1:29 AM FISH GRADER) Bile acids 22(H) <=10 mcmol/L [facility] Comment: Test Performed by: [address] [address] Film Examiner: Mayuri Stone Ph.D.; CLIA# [id number] Blood 01/13/2025 1:29 AM FISH GRADER 01/13/2025 4:41 AM FISH GRADER aLtosha Lea MD LAB BLOOD ORDERABLES Final Result Performing Organization Address [facility] Co de Phone Number [facility] [place] [address] [facility] * RPR Blood (01/13/2025 1:29 AM FISH GRADER) [facility] RPR Nonreactive Nonreactive Blood 01/13/2025 1:29 AM FISH GRADER 01/13/2025 1:41 AM FISH GRADER Latosha Lea MD LAB MICROBIOLOGY - GENERAL ORDERABLES Final Result Performing Organization Address [facility] [place] [address] * (ABNORMAL) CBC without differential (01/13/2025 1:29 AM FISH GRADER) [facility] WBC 13.2(H) 3.8 - 9.9 K/cumm Hgb 10.9(L) 11.9 - 15.5 g/dL [facility] Hct 32.5(L) 35.6 - 45.5 % [facility] Plt 236 150 - 400 K/cumm [facility] MPV 9.1 9.1 - 12.3 fL [facility] RBC 3.43(L) 3.90 - 5.20 M/cumm [facility] MCV 94.8 81.3 - 96.4 fL [facility] MCH 31.8 27.1 - 33.3 pg [facility] MCHC 33.5 32.3 - 35.7 g/dL [facility] RDW CV 13.5 11.1 - 14.9 % [facility] RDW SD 45.8 35.7 - 48.1 fL [facility] NRBC abs 0.00 0.00 - 0.01 K/cumm [facility] Blood 01/13/2025 1:29 AM FISH GRADER 01/13/2025 1:41 AM FISH GRADER Latosha Lea MD LAB BLOOD ORDERABLES Final Result Performing Organization Address City/[facility]/ZIP Co de Phone Number [facility] [place] [address] * (ABNORMAL) Type and screen (01/13/2025 1:29 AM FISH GRADER) Pathologist [facility], indirect Positive(A) ABO Rh B Negative [facility] Blood 01/13/2025 1:29 AM FISH GRADER 01/13/2025 1:48 AM FISH GRADER Narrative [facility] - 01/13/2025 2:54 AM FISH GRADER Has the patient had Daratumumab or Isatuximab in the past 6 months?->Unknown Latosha Lea MD LAB BLOOD BANK TEST ORDERA BLES Final Result [facility] [place] [address] * (ABNORMAL) Comprehensive metabolic panel (01/13/2025 1:29 AM FISH GRADER) Pathologist [facility] Sodium 139 135 - 145 mmol/L Potassium, pl 4.0 3.3 - 4.9 mmol/L [facility] Chloride 108 97 - 110 mmol/L [facility] CO2 22 22 - 32 mmol/L [facility] Anion gap 9 2 - 15 mmol/L [facility] BUN 5(L) 6 - 25 mg/dL [facility] Creatinine 0.36(L) 0.60 - 1.10 mg/dL [facility] Glucose 117 70 - 199 mg/dL [facility] Comment: Interpretive Data Fasting glucose >/= 126 [...] 2022. Calcium 8.9 8.5 - 10.3 mg/dL [facility] Bilirubin, total 1.4(H) 0.1 - 1.2 mg/dL [facility] Protein, pl 7.1 6.5 - 8.5 g/dL [facility] Albumin 3.4(L) 3.5 - 5.0 g/dL [facility] Alk phos 355(H) 40 - 130 Units/L [facility] ALT 55(H) 7 - 45 Units/L [facility] AST 50(H) 10 - 45 Units/L [facility] Blood 01/13/2025 1:29 AM FISH GRADER 01/13/2025 1:41 AM FISH GRADER Latosha Lea MD LAB BLOOD ORDERABLES Final Result [facility] [place] [address] * GTT 50gm 1hr gestational screen (11/29/2024) GTT 50g gest screen 59 Blood Lalita Claudio MD LAB BLOOD ORDERABLES Fi nal Result * HIV 1/2 Antibody plus p24 Antigen Blood (11/29/2024) Pathologist [facility] HIV 1/2 ab + p24 ag non-reacti ve Blood Lalita Claudio MD LAB MICROBIOLOGY - GENE RAL ORDERABLES Final Result * CBC without differential (11/29/2024) Pathologist [facility] Hct 33.7 Hgb 11.3 Plt 258 Blood Lalita Claudio MD LAB BLOOD ORDERABLES Fi nal Result from Last 3 Months Insurance [facility] OPEN ACCESS [employer] OPEN ACCESS [employer] OPEN ACCESS Advance Directives For more information, please contact: [phone] * Full Code (Latest Code Status on File) Date Activated Date Inactivated Comments 01/13/2025 12:17 AM 01/14/2025 6:51 PM Care Teams Marketing Performance Analyst Relationship Specialty Start Date End Date Unknown, Notinfile PCP - General 04/24/24 Adan Huitron DO Family Medicine 04/24/24
--- OUTSIDE RECORDS SUMMARY | 2025-01-22 18:01 | XMS_ITS | Encounter Summary ---
Author Organization [facility] Address Formerly [facility] [place] [address] Care Team Providers Care Rotary Planer Set Up Operator Name Role Phone Connie Raza DO Primary Care Provider [phone] Maria G Kuhn Unavailable [phone] Maria G Kuhn Primary Care Provider [phone] Encounter Details Date Type Department Care Team (Late st Contact Info) Description 01/04/[email or web address] [facility] Family Medicine - [place] [id number] [facility], [address] [place] [address] Connie Raza DO [address] [place] [address] Eye Social History Tobacco Use [...] Depression Total Score: 1 11/30/19 7:53 AM PRINTED CIRCUIT DESIGNER documented as of this encounter Care Teams Rotary Planer Set Up Operator Relationship Specialty Start Date End Date Connie Raza DO [address] [place] [address] PCP - General FAMILY PRACTICE 11/29/22 03/01/23 Maria G Kuhn APNP [address] [place] [address] PCP - General NURSE PRACTITIONER 03/02/23 Maria G Kuhn APNP [address] [place] [address] NURSE PRACTITIONER 03/02/23 03/02/23 documented as of this encounter
--- OUTSIDE RECORDS SUMMARY | 2025-01-22 18:01 | XMS_ITS | Encounter Summary ---
Author Organization [facility] Address [address] [place] [address] Care Team Providers Care Servicing Manager Name Role Phone Adan Huitron DO Primary Care Provider [phone] Adan Huitron DO Primary Care Provider [phone] Maria G Kuhn Primary Care Provider + Connie Raza DO Primary Care Provider [phone] Adan Huitron DO Unavailable [phone] Maria G Kuhn Unavailable [phone] Maria G Kuhn Primary Care Provider + Encounter Details Date Type Department Care Team (Late st Contact Info) Description 02/18/2022 [employer] Message Enc [facility] Family Medicine - [place] [address] [facility], [address] [place] [phone] Adan Huitron DO [address] [facility] [address] [place], [place] [id number] Pressure behind Right eye Social History Tobacco [...] documented as of this encounter Care Teams Servicing Manager Relationship Specialty Start Date End Date Adan Huitron DO PCP - General FAMILY PRACTICE 11/28/19 07/05/22 Adan Huitron DO PCP - General FAMILY PRACTICE 07/06/22 10/25/22 Maria G Kuhn APNP [address] [place] [address] PCP - General NURSE PRACTITIONER 10/26/22 11/28/22 Connie Raza DO [address] [place] [address] PCP - General FAMILY PRACTICE 11/29/22 03/01/23 Maria G Kuhn APNP [address] [place] [address] PCP - General NURSE PRACTITIONER 03/02/23 Adan Huitron DO FAMILY PRACTICE 07/06/22 11/15/22 Maria G Kuhn APNP [address] [place] [address] NURSE PRACTITIONER 03/02/23 03/02/23 documented as of this encounter
--- OUTSIDE RECORDS SUMMARY | 2025-01-22 18:01 | XMS_ITS | Encounter Summary ---
Author Organization [facility] Address [address] [place] [address] Care Team Providers Care Adjunct Faculty Instructor Name Role Phone Maria G Kuhn Primary Care Provider [phone] Encounter Details Date Type Department Care Team (Late st Contact Info) Description 05/09/2024 Zimoryt Message Enc [facility] Family and Sports Medicine - [place] [address] [place] [address] Maria G Kuhn APNP [address] [place] [address] Yearly Visit Reminder Social History Tobacco Use [...] Depression Total Score: 1 11/30/19 7:53 AM SCAN COORDINATOR documented as of this encounter Care Teams Adjunct Faculty Instructor Relationship Specialty Start Date End Date Maria G Kuhn APNP [address] [place] [address] PCP - General NURSE PRACTITIONER 03/02/23 documented as of this encounter
--- OUTSIDE RECORDS SUMMARY | 2025-01-22 18:01 | XMS_ITS | Referral Summary ---
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) 01/17/2025 3:40 PM RESOURCE CENTER TEACHER Lab [facility] [address] [place] [address] Intrahepatic cholestasis of in third trimester 01/14/2025 1:00 PM RESOURCE CENTER TEACHER Ancillary Procedure [address] [place] [address] 01/13/2025 - 01/14/2025 2:37 PM RESOURCE CENTER TEACHER Hospital Encounter [address] [phone] Latosha Lea MD Bligard, Katherine Hollister, MD Intrahepatic cholestasis of in third trimester (Primary Dx) Discharge Disposition: Discharge to home or self care 01/13/2025 6:59 AM RESOURCE CENTER TEACHER Anesthesia Event [address] [phone] Argentina Rodriguez MD 01/12/2025 2:16 PM RESOURCE CENTER TEACHER - 01/12/2025 11:59 PM RESOURCE CENTER TEACHER Hospital Encounter [facility] B[facility] [phone] Emergency, Room R Discharge Disposition: Discharge to home or self care from Last 3 Months Allergies Active Allergy [...] imester 01/21/2025 Supervision of high-risk , third trimes ter 01/21/2025 Overview (01/21/2025): [] OB consult only, [] Co-management vs. [] Full MFM Care; [] Red Team [] Blue Team Referring Provider: F/U from [facility] Primary OB: Lalita Claudio [phone] [] or Medicare Insurance [x] Dating Criteria: [...] [] MOC: [] Method of feeding: [] Info Print Press Operator (specifically which provider): [] PP Depression Discussed: [] PP visits scheduled: Vaccines [x] Flu Shot (Sep-Dec): received 08/27/24 [] COVID vaccine: [] Tdap (27-36wks): [] RSV vaccine (32-36wks): [] PP HPV vaccine counseling (<=26 yo): Threatened labor, third trimester 2024 Acute non-recurrent maxillary sinusitis 11/19/20 21 Assessment & Plan (11/19/2021 8:28 AM RESOURCE CENTER TEACHER): -amoxicillin 500 b.i.d. -continue the loratadine -continue to Tylenol -drink plenty of fluids -notify your provider if you do not improve Arthralgia of elbow 03/18/2013 Arthralgia of shoulder 12/06/2012 Estimated Date of Delivery Comme nts Yes 02/19/2025 Based on Other B asis, patient reported based on LMP=1st trimester ultrasound (~11w) Immunizations Immunization Administration Dates Next Due DTaP [...] often do you attend chur ch or roman catholic services? 1 to 4 times per year 01/13/2025 Do you belong to any clubs o r organizations such as anglican groups, unions, fraternal or athletic groups, or [...] any time in the past 12 m [facility], were you homeless or living in a skilled nursing (including now)? No 01/13/2025 Personal Safety Answer [...] on file Legal Sex Female 6:53 AM RESOURCE CENTER TEACHER Gender Identity Not on file Sexual Orientation Not on file Last Filed Vital Signs Vital Sign Reading Time Taken Comments Blood Pressure 123/67 01/14/2025 11:50 AM RESOURCE CENTER TEACHER Pulse 90 01/14/2025 11:50 AM RESOURCE CENTER TEACHER Temperature 36.7 C (98.1 F) 01/14/2025 11:50 AM RESOURCE CENTER TEACHER Respiratory Rate 16 01/14/2025 11:50 AM RESOURCE CENTER TEACHER Oxygen Saturation 99% 01/14/2025 11:50 AM RESOURCE CENTER TEACHER Inhaled Oxygen Concentration - - Weight 77.6 kg (171 lb) 01/13/2025 1:35 AM RESOURCE CENTER TEACHER Height 165.1 cm (5' 5 ) 01/13/2025 12:07 AM RESOURCE CENTER TEACHER Body Mass Index 28.46 01/13/2025 12:07 AM RESOURCE CENTER TEACHER Plan of Treatment Upcoming Encounters Date Type Department Care Team (Late st Contact Info) Description 02/19/2025 11:38 PM CDT Hospital Encounter [address] [phone] [place] [address] [place] [id number] Procedures Procedure Name Priority Date/Time Associated Diagnosis Comments EGFR Routine 01/17/2025 1:57 PM RESOURCE CENTER TEACHER Intrahepatic cholestasis of in third trimester COMPREHENSIVE METABOLIC PANEL Routine 01/17/2025 1:57 PM RESOURCE CENTER TEACHER Intrahepatic cholestasis of in third trimester BILE ACIDS, TOTAL Routine 01/17/2025 1:5 7 PM RESOURCE CENTER TEACHER Intrahepatic cholestasis of in third trimester US OB 14 WEEKS OR OVER IP Routine 1:32 PM RESOURCE CENTER TEACHER EGFR Timed 01/14/2025 8:23 AM RESOURCE CENTER TEACHER COMPREHENSIVE METABOLIC PANEL Timed 01/14/2025 8:23 AM RESOURCE CENTER TEACHER ANTIBODY IDENTIFICATION Routine 01/13/2025 2:54 AM RESOURCE CENTER TEACHER URINE CULTURE Routine 01/13/2025 2:07 AM RESOURCE CENTER TEACHER B CHECK SAMPLE STAT 01/13/2025 2:04 AM RESOURCE CENTER TEACHER TRICHOMONAS VAGINALIS PCR Routine 01/13/2025 1:32 AM RESOURCE CENTER TEACHER N. GONORRHOEAE/C. TRACHOMATIS AMPLIFICATION Routine 01/13/2025 1:32 AM RESOURCE CENTER TEACHER GROUP B STREPTOCOCCUS CULTURE Routine 01/13/2025 1:32 AM RESOURCE CENTER TEACHER EGFR STAT 01/13/2025 1:29 AM RESOURCE CENTER TEACHER BILE ACIDS, TOTAL Timed 01/13/2025 1:2 9 AM RESOURCE CENTER TEACHER COMPREHENSIVE METABOLIC PANEL STAT 01/13/2025 1:29 AM RESOURCE CENTER TEACHER TYPE AND SCREEN Timed 01/13/2025 1:29 AM RESOURCE CENTER TEACHER CBC WITHOUT DIFFERENTIAL Routine 01/13/2025 1:29 AM RESOURCE CENTER TEACHER RPR Routine 01/13/2025 1:29 AM RESOURCE CENTER TEACHER HIV 1/2 ANTIBODY PLUS P24 ANTIGEN Routine 01/13/2025 1:29 AM RESOURCE CENTER TEACHER GTT 50GM 1HR GESTATIONAL SCREEN Routine 11/29/2024 CBC WITHOUT DIFFERENTIAL Routine 11/29/2024 HIV 1/2 ANTIBODY PLUS P24 ANTIGEN Routine 11/29/2024 from Last 3 Months Results * eGFR (01/17/2025 1:57 PM RESOURCE CENTER TEACHER) eGFR >90 >=60 mL/min/1. 73 m2 Comment: [...] last reviewed 2021. Blood 01/17/2025 1:57 PM RESOURCE CENTER TEACHER 01/17/2025 2:42 PM RESOURCE CENTER TEACHER us Keya Regalado MD LAB BLOOD ORDERAB LES Final Result ANN [facility]IE [facility] Department [place] [address] * (ABNORMAL) Bile acids (01/17/2025 1:57 PM RESOURCE CENTER TEACHER) Bile acids 55(H) <=10 mcmol/L [place] ref [facility] Comment: Test Performed by: [address] [address] Anime Designer: Mayuri Stone Ph.D.; CLIA# [id number] Blood 01/17/2025 1:57 PM RESOURCE CENTER TEACHER 01/17/2025 4:11 PM RESOURCE CENTER TEACHER Narrative ANN MARIE ADAN - 01/19/2025 1:02 PM RESOURCE CENTER TEACHER sent 1.0 ml serum us Keya Regalado MD LAB BLOOD ORDERAB LES Final Result ANN MARIE ADANH [facility] Department [place] [address] [place] ref [facility] * (ABNORMAL) Comprehensive metabolic panel (01/17/2025 1:57 PM RESOURCE CENTER TEACHER) Sodium 138 135 - 145 mmol/L Potassium, pl 3.8 3.3 - 4.9 mmol/L [facility] Chloride 103 97 - 110 mmol/L [facility] CO2 27 22 - 32 mmol/L [facility] Anion gap 8 2 - 15 mmol/L [facility] BUN 7 6 - 25 mg/dL [facility] Creatinine 0.53(L) 0.60 - 1.10 mg/dL [facility] Glucose 91 70 - 199 mg/dL [facility] Comment: Interpretive Data Fasting glucose >/= 126 [...] 2022. Calcium 9.1 8.5 - 10.3 mg/dL [facility] Bilirubin, total 0.9 0.1 - 1.2 mg/dL [facility] Protein, pl 7.2 6.5 - 8.5 g/dL [facility] Albumin 3.5 3.5 - 5.0 g/dL [facility] Alk phos 309(H) 40 - 130 Units/L [facility] ALT 105(H) 7 - 45 Units/L [facility] AST 58(H) 10 - 45 Units/L [facility] Blood 01/17/2025 1:57 PM RESOURCE CENTER TEACHER 01/17/2025 2:39 PM RESOURCE CENTER TEACHER us Keya Regalado MD LAB BLOOD ORDERAB LES Final Result [facility] Department [place] [address] * US Ob 14 Weeks Or Over (01/14/2025 1:32 PM RESOURCE CENTER TEACHER) Fetus# Fetus1 [facility] Estimated Weight 2,817 g&grams [facility] Placenta Details anterior, Previa-no, no placental masses [facility] Presentation Vertex [facility] Anatomical Region Laterality Modality Abdomen N/A Ultrasound 01/14/2025 1:32 PM RESOURCE CENTER TEACHER Impressions 01/14/2025 3:03 PM RESOURCE CENTER TEACHER IUP at 34w 6d. 1. Biometric measurements [...] Final Result * eGFR (01/14/2025 8:23 AM RESOURCE CENTER TEACHER) eGFR >90 >=60 mL/min/1. 73 m2 Comment: [...] last reviewed 2021. Blood 01/14/2025 8:23 AM RESOURCE CENTER TEACHER 01/14/2025 8:42 AM RESOURCE CENTER TEACHER us Sharon Gomes MD LAB BLOOD ORDERABLES Fi nal Result [facility] Department [place] [address] * (ABNORMAL) Comprehensive metabolic panel (01/14/2025 8:23 AM RESOURCE CENTER TEACHER) Sodium 138 135 - 145 mmol/L Potassium, pl 3.7 3.3 - 4.9 mmol/L [facility] Chloride 106 97 - 110 mmol/L [facility] CO2 22 22 - 32 mmol/L [facility] Anion gap 10 2 - 15 mmol/L [facility] BUN 5(L) 6 - 25 mg/dL [facility] Creatinine 0.34(L) 0.60 - 1.10 mg/dL [facility] Glucose 172 70 - 199 mg/dL [facility] Comment: Interpretive Data Fasting glucose >/= 126 [...] 2022. Calcium 9.0 8.5 - 10.3 mg/dL [facility] Bilirubin, total 1.2 0.1 - 1.2 mg/dL [facility] Protein, pl 7.2 6.5 - 8.5 g/dL [facility] Albumin 3.6 3.5 - 5.0 g/dL [facility] Alk phos 334(H) 40 - 130 Units/L [facility] ALT 69(H) 7 - 45 Units/L [facility] AST 51(H) 10 - 45 Units/L [facility] Blood 01/14/2025 8:23 AM RESOURCE CENTER TEACHER 01/14/2025 8:42 AM RESOURCE CENTER TEACHER Sharon Gomes MD LAB BLOOD ORDERABLES Fi nal Result Performing Organization Address [facility]/ZIP Co de Phone Number [facility] Department [place] [address] * Antibody identification (01/13/2025 2:54 AM RESOURCE CENTER TEACHER) Antibody ID 1 Passive Anti-D Blood 01/13/2025 2:54 AM RESOURCE CENTER TEACHER 01/13/2025 2:54 AM RESOURCE CENTER TEACHER Latosha Lea MD LAB BLOOD BANK TEST ORDERA BLES Final Result Performing Organization Address [facility] de Phone Number [facility] Department [place] [address] * Urine culture Urine, clean voided (01/13/2025 2:07 AM RESOURCE CENTER TEACHER) Report Final Report: Less than 100,000 colonies/mL (clinically insignificant growth based on current clinical standards) Organism (CLINICALLY INSIGNIFICANT GROWTH [facility] Urine, clean voided 01/13/2025 2:07 AM RESOURCE CENTER TEACHER 01/13/2025 2:26 AM RESOURCE CENTER TEACHER Narrative [facility] - 01/14/2025 7:17 AM RESOURCE CENTER TEACHER Indications for Culture:-> patient Testing performed by [facility] Microbiology Laboratory ([phone]) Latosha Lea MD LAB MICROBIOLOGY - GENERAL ORDERABLES Final Result Performing Organization Address City/[facility]/ZIP Co de Phone Number [facility] Department [place] [address] * Check Sample (01/13/2025 2:04 AM RESOURCE CENTER TEACHER) Pathologist [facility] ABO Rh B Negative [facility] HCLL OTHER 01/13/2025 2:04 AM RESOURCE CENTER TEACHER 01/13/2025 2:14 AM RESOURCE CENTER TEACHER Latosha Lea MD LAB BLOOD ORDERABLES Final Result Performing Organization Address [facility] [place] [address] [facility] * N. gonorrhoeae/C. trachomatis Amplification Vaginal (01/13/2025 1:32 AM RESOURCE CENTER TEACHER) Pathologist [facility] C. trachomatis Not Detected Not Detected [facility] N. gonorrhoeae Not Detected Not Detected [facility] Comment: Interpretive Data This assay detects Chlamydia trachomatis and Neisseria gonorrhoeae by nucleic acid amplification testing (NAAT). This assay has been cleared by the [place] Food and Drug administration. The performance characteristics of this test have been verified by the [facility] Molecular Infectious Disease laboratory. The performance characteristics of this test have not been evaluated in individuals less than 14 years of age. Current Interpretive Data last revised 2023. Vaginal (None) 01/13/2025 1: 32 AM RESOURCE CENTER TEACHER 01/13/2025 1:50 AM RESOURCE CENTER TEACHER Latosha Lea MD LAB MICROBIOLOGY - GENERAL ORDERABLES Final Result Performing Organization Address [facility] Co de Phone Number ANN MARIE [facility] [address] [facility] * Trichomonas vaginalis PCR Vaginal (01/13/2025 1:32 AM RESOURCE CENTER TEACHER) Pathologist [facility] Trichomonas DNA Not Detected Not Detected [facility] Comment: Interpretive Data This assay detects Trichomonas vaginalis by nucleic acid amplification testing (NAAT). This assay has been cleared by the [place] Food and Drug administration. The performance characteristics of this test have been verified by the [facility] Molecular Infectious Disease laboratory. Excess blood in specimens may be inhibitory and result in false negative results. The performance of this test has not been evaluated in women or individuals less than 18 years of age. Current Interpretive Data last revised 2023. Vaginal 01/13/2025 1:32 AM RESOURCE CENTER TEACHER 01/13/2025 1:50 AM RESOURCE CENTER TEACHER Latosha Lea MD LAB MICROBIOLOGY - GENERAL ORDERABLES Final Result Performing Organization Address [facility] Co de Phone Number [facility] [place] [address] [facility] * Group B streptococcal culture Vaginal/Rectal (01/13/2025 1:32 AM RESOURCE CENTER TEACHER) Report Final Report: Negative Vaginal/Rectal 01/13/2025 1: 32 AM RESOURCE CENTER TEACHER 01/13/2025 2:29 AM RESOURCE CENTER TEACHER Narrative [facility] - 01/15/2025 8:41 PM RESOURCE CENTER TEACHER Testing performed by [facility] Microbiology Laboratory ([phone]). Latosha Lea MD LAB MICROBIOLOGY - GENERAL ORDERABLES Final Result Performing Organization Address [facility] Co de Phone Number ANN MARIE [facility] [place] [address] * eGFR (01/13/2025 1:29 AM RESOURCE CENTER TEACHER) eGFR >90 >=60 mL/min/1. 73 m2 Comment: [...] last reviewed 2021. Blood 01/13/2025 1:29 AM RESOURCE CENTER TEACHER 01/13/2025 1:41 AM RESOURCE CENTER TEACHER Latosha Lea MD LAB BLOOD ORDERABLES Final Result Performing Organization Address City/[facility] Co de Phone Number [facility] [place] [address] * HIV 1/2 Antibody plus p24 Antigen Blood (01/13/2025 1:29 AM RESOURCE CENTER TEACHER) HIV 1/2 ab + p24 ag Nonreactive Nonreactive Comment:Nonreactive for HIV- 1 antigen and HIV-1/HIV-2 antibodies. No laboratory evidence of HIV infection. If acute HIV infection is suspected, consider testing for HIV-1 RNA. Current interpretive data was last revised on 22. Blood 01/13/2025 1:29 AM RESOURCE CENTER TEACHER 01/13/2025 1:41 AM RESOURCE CENTER TEACHER Latosha Lea MD LAB MICROBIOLOGY - GENERAL ORDERABLES Final Result Performing Organization Address City/[facility]/ZIP Co de Phone Number [facility] [place] [address] * (ABNORMAL) Bile acids (01/13/2025 1:29 AM RESOURCE CENTER TEACHER) Bile acids 22(H) <=10 mcmol/L [place] ref [facility] Comment: Test Performed by: [address] [address] Anime Designer: Mayuri Stone Ph.D.; IA# [id number] Blood 01/13/2025 1:29 AM RESOURCE CENTER TEACHER 01/13/2025 4:41 AM RESOURCE CENTER TEACHER Latosha Lea MD LAB BLOOD ORDERABLES Final Result Performing Organization Address [facility] Co de Phone Number [facility] Department [place] [address] [place] ref [facility] * RPR Blood (01/13/2025 1:29 AM RESOURCE CENTER TEACHER) [facility] RPR Nonreactive Nonreactive Blood 01/13/2025 1:29 AM RESOURCE CENTER TEACHER 01/13/2025 1:41 AM RESOURCE CENTER TEACHER Latosha Lea MD LAB MICROBIOLOGY - GENERAL ORDERABLES Final Result Performing Organization Address [facility] de Phone Number [facility] Department [place] [address] * (ABNORMAL) CBC without differential (01/13/2025 1:29 AM RESOURCE CENTER TEACHER) [facility] WBC 13.2(H) 3.8 - 9.9 K/cumm Hgb 10.9(L) 11.9 - 15.5 g/dL [facility] Hct 32.5(L) 35.6 - 45.5 % [facility] Plt 236 150 - 400 K/cumm [facility] MPV 9.1 9.1 - 12.3 fL [facility] RBC 3.43(L) 3.90 - 5.20 M/cumm [facility] MCV 94.8 81.3 - 96.4 fL [facility] MCH 31.8 27.1 - 33.3 pg [facility] MCHC 33.5 32.3 - 35.7 g/dL [facility] RDW CV 13.5 11.1 - 14.9 % [facility] RDW SD 45.8 35.7 - 48.1 fL [facility] NRBC abs 0.00 0.00 - 0.01 K/cumm [facility] Blood 01/13/2025 1:29 AM RESOURCE CENTER TEACHER 01/13/2025 1:41 AM RESOURCE CENTER TEACHER Latosha Lea MD LAB BLOOD ORDERABLES Final Result Performing Organization Address City/[facility] Co de Phone Number [facility] [place] [address] * (ABNORMAL) Type and screen (01/13/2025 1:29 AM RESOURCE CENTER TEACHER) Pathologist [facility] Raven, indirect Positive(A) ABO Rh B Negative [facility] Blood 01/13/2025 1:29 AM RESOURCE CENTER TEACHER 01/13/2025 1:48 AM RESOURCE CENTER TEACHER Narrative [facility] - 01/13/2025 2:54 AM RESOURCE CENTER TEACHER Has the patient had Daratumumab or Isatuximab in the past 6 months?->Unknown Latosha Lea MD LAB BLOOD BANK TEST ORDERA BLES Final Result Performing Organization Address [facility] de Phone Number [facility] [place] [address] * (ABNORMAL) Comprehensive metabolic panel (01/13/2025 1:29 AM RESOURCE CENTER TEACHER) Pathologist [facility] Sodium 139 135 - 145 mmol/L Potassium, pl 4.0 3.3 - 4.9 mmol/L [facility] Chloride 108 97 - 110 mmol/L [facility] CO2 22 22 - 32 mmol/L [facility] Anion gap 9 2 - 15 mmol/L [facility] BUN 5(L) 6 - 25 mg/dL [facility] Creatinine 0.36(L) 0.60 - 1.10 mg/dL [facility] Glucose 117 70 - 199 mg/dL [facility] Comment: Interpretive Data Fasting glucose >/= 126 [...] 2022. Calcium 8.9 8.5 - 10.3 mg/dL [facility] Bilirubin, total 1.4(H) 0.1 - 1.2 mg/dL [facility] Protein, pl 7.1 6.5 - 8.5 g/dL [facility] Albumin 3.4(L) 3.5 - 5.0 g/dL [facility] Alk phos 355(H) 40 - 130 Units/L [facility] ALT 55(H) 7 - 45 Units/L [facility] AST 50(H) 10 - 45 Units/L [facility] Blood 01/13/2025 1:29 AM RESOURCE CENTER TEACHER 01/13/2025 1:41 AM RESOURCE CENTER TEACHER Latosha Lea MD LAB BLOOD ORDERABLES Final Result [facility] [place] [address] * GTT 50gm 1hr gestational screen (11/29/2024) GTT 50g gest screen 59 Blood us Lalita Claudio MD LAB BLOOD ORDERABLES Fi nal Result * HIV 1/2 Antibody plus p24 Antigen Blood (11/29/2024) Pathologist [facility] HIV 1/2 ab + p24 ag non-reacti ve Blood us Lalita Claudio MD LAB MICROBIOLOGY - GENE RAL ORDERABLES Final Result * CBC without differential (11/29/2024) Hct 33.7 Hgb 11.3 Plt 258 Blood Lalita Claudio MD LAB BLOOD ORDERABLES Fi nal Result from Last 3 Months Insurance [employer] OOS [employer] ACCESS [employer] ACCESS [employer] OPEN ACCESS Advance Directives For more information, please contact: [phone] * Full Code (Latest Code Status on File) Date Activated Date Inactivated Comments 01/13/2025 12:17 AM 01/14/2025 6:51 PM Care Teams Produce Weigher Relationship Specialty Start Date End Date Unknown, Notinfile PCP - General 04/24/24 Adan Huitron DO Family Medicine 04/24/24
[2025-01-22] MEDS: OXYTOCIN 30 UNITS/NS 500 ML 30 UNITS/500 ML BAG IV CONT (18:30)
[2025-01-22] MEDS: LACTATED RINGERS 1,000 ML 125 ML IV CONT (18:30)
[2025-01-22 18:42] LABS: HIV 1/2 Ab P24 Ag Result Negative (Negative)
[2025-01-22 18:47] LABS: Syphilis IgG/IgM Antibody Negative (Negative)
[2025-01-22 19:44] LABS: OBXCEM ROM Plus Positive (Negative)
[2025-01-23] VITALS (145 sets, daily range): BP systolic 69–127; BP diastolic 40–80; PULSE 70–126; RESP 15–16; TEMP 36.3–36.9; O2SAT 95–100
--- NOTE | 2025-01-23 00:55 | WPDANESEPP ---
Anes - Eval Pre Procedure Procedure: Labor Epidural Date/Time: 01/23/25 00:55 Surgeon: González Preop Diagnosis: Labor Pain Pre Op Diagnosis: Ruptured Membranes Patient Data Age: 29 Gender: F Height: 1.65 m Weight: 76.8 kg Last Vital Signs Temp 37.3 C 01/22/25 17:00 Pulse 106 H 01/23/25 00:30 Resp 16 01/22/25 17:00 BP 124/78 01/23/25 00:30 Pulse Ox 97 01/23/25 00:53 O2 Del Method Room Air 01/22/25 17:21 Allergies Allergy/AdvReac Type Severity Reaction Status Date / Time benzoyl peroxide Allergy Hives Verified 01/22/25 18:59 Home Medications ?Medication ?Instructions ?Recorded ?Confirmed ?Type metoclopramide HCl 10 mg tablet 10 mg PO Q6H PRN nausea and 07/18/24 01/22/25 Rx (Reglan) vomiting #40 tabs vits no.126-ferrous fum 1 tablet PO DAILY 08/21/24 01/22/25 History 28 mg iron-folic acid 800 mcg tablet (Classic ) ferrous sulfate 325 mg (65 mg 325 mg PO .QOD 12/09/24 01/22/25 History iron) tablet magnesium oxide 200 mg PO DAILY 12/23/24 01/22/25 History omega 5-tow-hnl-fish oil 1,200 mg 1 cap PO DAILY 12/23/24 01/22/25 History (144 mg-216 mg) capsule (Fish Oil) loratadine 10 mg tablet (Claritin) 10 mg PO DAILY PRN allergic 01/22/25 01/22/25 History symptoms ursodiol 500 mg tablet 500 mg PO TID 01/22/25 01/22/25 History Laboratory Tests 01/22/25 01/22/25 15:35 17:27 WBC 10.8 H K/mm3 (4.5-10.0) RBC 3.48 L M/mm3 (4.2-5.4) Hgb 11.3 L g/dL (12.0-15.0) Hct 33.3 L % (37.0-47.0) MCV 95.7 fl (80-100) MCH 32.5 pg (26-34) MCHC 33.9 g/dl (32-36) RDW 13.4 % (11.5-14.5) Plt Count 262 k/mm3 (150-375) MPV 9.1 fl (7.4-10.4) Immature Gran % (Auto) 0.7 H % (0-0.5) Neut % (Auto) 50.4 % (45.5-73.1) Lymph % (Auto) 41.3 % (18.3-44.2) [place] % (Auto) 6.4 % (2.6-8.5) Eos % (Auto) 0.7 % (0-4.4) Baso % (Auto) 0.5 % (0.2-1.2) Lymph # (Auto) 4.46 H K/mm3 (0.9-3.2) [place] # (Auto) 0.7 H K/mm3 (0.1-0.6) Eos # (Auto) 0.1 K/mm3 (0-0.3) Baso # (Auto) 0.1 K/mm3 (0.0-0.1) Abs Immat Gran (auto) 0.08 H K/mm3 (0.00-0.031) Absolute Neuts (auto) 5.4 K/mm3 (1.3-6.7) Absolute Nucleated RBC 0.000 K/mm3 (0.0-0.012) Nucleated RBC % 0.0 % (0.0-0.2) Membranes Rupture Rom plus positive (Negative) Syphilis IgG/IgM Ab Negative (Negative) HIV 1&2 Ab/P24 Ag 4thGn Negative (Negative) Blood Type B Negative Antibody Screen Positive Antibody Identification Passive Due to RH Imm Glob Antigen Identification Not Reportable LILLIAN, IgG Interpret Neg LILLIAN, Poly Interpret Not Performed LILLIAN, Complement Interp Negative Patient hx anesthesia problems: none Family hx anesthesia problems: none Results Review: All pre-operative results and documents have been reviewed as part of the pre-operative evaluation. [facility] Past Medical History Medical History Suppression of menses Encounter for IUD insertion 07/25/2023 Surgical History Surgical History H/O shoulder surgery left 2013 Family History Family History Grandparent Cerebrovascular accident Sibling Depression Hyperthyroidism Asthma Father No problems noted. Social History Social History Smoking status: Never smoker Second hand tobacco smoke exposure: No Alcohol intake: former Alcohol use details: socially Substance use: never Substance use type: does not use Do You Feel Safe in your Home?: Yes Lack of Transportation: No Lack of Food: Never True Current Housing: I Have Housing Concerned About Future Housing: No Difficulty Paying Gas/Electric Bills: No Difficulty Paying for Meds: No Currently Unemployed: No Education: High School Diploma/GED Difficulty w/ Childcare or Family Care: No Living arrangements: with family Occupation/Education: occupation Gender identity (if verbalized by the patient): Female Sexual Orientation (if Verbalized by the Patient): Straight or Heterosexual Spiritual care concerns: No Exam Day of Procedure 01/23/25 00:55 Patient weight: normal Heart: regular rate and rhythm Lungs: normal air movement Airway: Mallampati scale class II Neurological: alert and oriented
[2025-01-23] MEDS: LACTATED RINGERS 1,000 ML 125 ML IV CONT (04:54)
--- NOTE | 2025-01-23 07:21 | WPDHPUPDATE1 ---
History and Physical Update Update Date/Time: 01/23/25 07:21 - Rh negative - Rhogam at 28 wks - Headaches -PTL- transfered at 35w. 4cm -cholestasis- Bile acids 75, ursidiol TID, testing, delivery between 36-37wk History and Physical has been reviewed, including an updated exam of the patient. There are NO changes in the patient's condition. Risks, benefits, and alternatives have been discussed and questions answered. Patient agrees to proceed with procedure. A/P: admit to L&D routine admission orders Rh negative, will need rhogam PP continuous EFM augment with pitocin GBS negative per patient. swab done at [facility]
--- NOTE | 2025-01-23 07:23 | PM.IMHP ---
H&P: HPI History of Present Illness Date/Time: 01/23/25 07:23 Chief Complaint: leaking Narrative: Karina is a 29yo @ 36.1wks who presented overnight with leakage of fluid. She was found to be 4.5/70/-2, ROM+ was positive. She did have a small forebag this morning which was ruptured clear this AM. Her is complicated by: - Rh negative - Rhogam at 28 wks - Headaches - PTL- transfered at 34w. 4cm, s/p abx, ANCS - Cholestasis- Bile acids 75, ursidiol TID, testing, delivery between 36-37wk Review of Systems Constitutional: Constitutional: Denies chills, Denies fever(s) and Denies headache(s) Eyes: Eyes: Denies change in vision ENT: Denies headache(s) Cardiovascular: Cardiovascular: Denies chest pain and Denies dyspnea Respiratory: Respiratory: Denies dyspnea Genitourinary: Genitourinary: Denies abnormal vaginal bleeding and Reports vaginal discharge Neurologic: Denies headache(s) Psychiatric: Psychiatric: Denies anxiety and Denies depression COUNT INCLUDES THE [facility] Past Medical History Medical History Suppression of menses Encounter for IUD insertion 07/25/2023 Surgical History Surgical History H/O shoulder surgery left 2013 Family History Family History Grandparent Cerebrovascular accident Sibling Depression Hyperthyroidism Asthma Father No problems noted. Social History Social History Smoking status: Never smoker Second hand tobacco smoke exposure: No Alcohol intake: former Alcohol use details: socially Substance use: never Substance use type: does not use Do You Feel Safe in your Home?: Yes Lack of Transportation: No Lack of Food: Never True Current Housing: I Have Housing Concerned About Future Housing: No Difficulty Paying Gas/Electric Bills: No Difficulty Paying for Meds: No Currently Unemployed: No Education: High School Diploma/GED Difficulty w/ Childcare or Family Care: No Living arrangements: with family Occupation/Education: occupation Gender identity (if verbalized by the patient): Female Sexual Orientation (if Verbalized by the Patient): Straight or Heterosexual Spiritual care concerns: No Meds Home Medications and Allergies Home Medications ?Medication ?Instructions ?Recorded ?Confirmed ?Type metoclopramide HCl 10 mg tablet 10 mg PO Q6H PRN nausea and 07/18/24 01/22/25 Rx (Reglan) vomiting #40 tabs vits no.126-ferrous fum 1 tablet PO DAILY 08/21/24 01/22/25 History 28 mg iron-folic acid 800 mcg tablet (Classic ) ferrous sulfate 325 mg (65 mg 325 mg PO .QOD 12/09/24 01/22/25 History iron) tablet magnesium oxide 200 mg PO DAILY 12/23/24 01/22/25 History omega 5-rdw-rpd-fish oil 1,200 mg 1 cap PO DAILY 12/23/24 01/22/25 History (144 mg-216 mg) capsule (Fish Oil) loratadine 10 mg tablet (Claritin) 10 mg PO DAILY PRN allergic 01/22/25 01/22/25 History symptoms ursodiol 500 mg tablet 500 mg PO TID 01/22/25 01/22/25 History Allergies Allergy/AdvReac Type Severity Reaction Status Date / Time benzoyl peroxide Allergy Hives Verified 01/22/25 18:59 Vital Signs Vital Signs - 24 hr 01/22/25 15:31 01/22/25 16:00 01/22/25 16:30 Temperature 98.5 F Pulse Rate 103 H 107 H Respiratory Rate 16 Blood Pressure 119/73 120/73 Pulse Oximetry Oxygen Delivery 01/22/25 17:00 01/22/25 17:21 01/22/25 17:30 Temperature 99.1 F Pulse Rate 97 108 H Respiratory Rate 16 Blood Pressure 122/71 117/75 Pulse Oximetry Oxygen Delivery Room Air 01/22/25 18:00 01/22/25 18:30 01/22/25 19:00 Temperature 99 F Pulse Rate 109 H 92 96 Respiratory Rate Blood Pressure 125/76 117/73 125/75 Pulse Oximetry Oxygen Delivery 01/22/25 19:30 01/22/25 20:00 01/22/25 20:30 Temperature 98.6 F Pulse Rate 108 H 93 105 H Respiratory Rate Blood Pressure 120/75 114/61 117/69 Pulse Oximetry Oxygen Delivery 01/22/25 21:02 01/22/25 22:00 01/22/25 22:30 Temperature 98.3 F Pulse Rate 109 H 96 104 H Respiratory Rate Blood Pressure 128/74 115/71 116/71 Pulse Oximetry Oxygen Delivery 01/22/25 23:00 01/22/25 23:30 01/23/25 00:00 Temperature 98.4 F Pulse Rate 102 H 97 Respiratory Rate Blood Pressure 116/64 117/66 Pulse Oximetry Oxygen Delivery 01/23/25 00:01 01/23/25 00:30 01/23/25 00:48 Temperature Pulse Rate 102 H 106 H Respiratory Rate Blood Pressure 126/66 124/78 Pulse Oximetry 97 Oxygen Delivery 01/23/25 00:53 01/23/25 00:58 01/23/25 01:01 Temperature Pulse Rate 88 Respiratory Rate Blood Pressure 127/79 Pulse Oximetry 97 97 Oxygen Delivery 01/23/25 01:03 01/23/25 01:05 01/23/25 01:08 Temperature Pulse Rate 95 98 98 Respiratory Rate Blood Pressure 123/67 123/76 124/75 Pulse Oximetry 98 98 Oxygen Delivery 01/23/25 01:11 01/23/25 01:13 01/23/25 01:15 Temperature Pulse Rate 86 98 99 Respiratory Rate Blood Pressure 120/80 121/63 124/63 Pulse Oximetry 97 Oxygen Delivery 01/23/25 01:18 01/23/25 01:20 01/23/25 01:23 Temperature Pulse Rate 103 H 113 H 108 H Respiratory Rate Blood Pressure 119/64 120/62 116/62 Pulse Oximetry 98 97 Oxygen Delivery 01/23/25 01:25 01/23/25 01:28 01/23/25 01:31 Temperature Pulse Rate 106 H 103 H 94 Respiratory Rate Blood Pressure 118/64 121/66 123/65 Pulse Oximetry 96 Oxygen Delivery 01/23/25 01:33 01/23/25 01:36 01/23/25 01:38 Temperature Pulse Rate 96 88 126 H Respiratory Rate Blood Pressure 123/66 123/72 113/62 Pulse Oximetry 98 98 Oxygen Delivery 01/23/25 01:40 01/23/25 01:43 01/23/25 01:45 Temperature Pulse Rate 119 H 115 H 97 Respiratory Rate Blood Pressure 113/68 115/69 116/68 Pulse Oximetry 96 Oxygen Delivery 01/23/25 01:48 01/23/25 01:50 01/23/25 01:53 Temperature Pulse Rate 104 H 108 H 81 Respiratory Rate Blood Pressure 118/67 122/68 113/64 Pulse Oximetry 96 97 Oxygen Delivery 01/23/25 01:55 01/23/25 01:58 01/23/25 02:00 Temperature 97.3 F L Pulse Rate 102 H 102 H Respiratory Rate Blood Pressure 120/73 124/69 Pulse Oximetry 99 Oxygen Delivery 01/23/25 02:01 01/23/25 02:03 01/23/25 02:05 Temperature Pulse Rate 122 H 106 H 109 H Respiratory Rate Blood Pressure 106/42 L 120/70 116/63 Pulse Oximetry 97 Oxygen Delivery 01/23/25 02:08 01/23/25 02:10 01/23/25 02:13 Temperature Pulse Rate 105 H 109 H 91 Respiratory Rate Blood Pressure 118/71 117/69 120/72 Pulse Oximetry 96 95 Oxygen Delivery 01/23/25 02:18 01/23/25 02:23 01/23/25 02:28 Temperature Pulse Rate Respiratory Rate Blood Pressure Pulse Oximetry 97 95 95 Oxygen Delivery 01/23/25 02:31 01/23/25 02:33 01/23/25 02:38 Temperature Pulse Rate 95 Respiratory Rate Blood Pressure 102/60 Pulse Oximetry 96 97 Oxygen Delivery 01/23/25 02:43 01/23/25 02:45 01/23/25 02:48 Temperature Pulse Rate 99 Respiratory Rate Blood Pressure 93/59 L Pulse Oximetry 96 96 Oxygen Delivery 01/23/25 02:53 01/23/25 02:58 01/23/25 03:01 Temperature Pulse Rate 88 Respiratory Rate Blood Pressure 95/51 L Pulse Oximetry 99 97 Oxygen Delivery 01/23/25 03:03 01/23/25 03:08 01/23/25 03:13 Temperature Pulse Rate Respiratory Rate Blood Pressure Pulse Oximetry 95 95 96 Oxygen Delivery 01/23/25 03:16 01/23/25 03:18 01/23/25 03:23 Temperature Pulse Rate 89 Respiratory Rate Blood Pressure 91/51 L Pulse Oximetry 95 95 Oxygen Delivery 01/23/25 03:28 01/23/25 03:30 01/23/25 03:33 Temperature Pulse Rate 106 H Respiratory Rate Blood Pressure 106/68 Pulse Oximetry 95 97 Oxygen Delivery 01/23/25 03:38 01/23/25 03:43 01/23/25 03:46 Temperature Pulse Rate 91 Respiratory Rate Blood Pressure 106/61 Pulse Oximetry 95 96 Oxygen Delivery 01/23/25 03:48 01/23/25 03:53 01/23/25 03:58 Temperature Pulse Rate Respiratory Rate Blood Pressure Pulse Oximetry 96 96 96 Oxygen Delivery 01/23/25 04:00 01/23/25 04:03 01/23/25 04:08 Temperature 97.6 F Pulse Rate 92 Respiratory Rate Blood Pressure 108/59 L Pulse Oximetry 95 97 Oxygen Delivery 01/23/25 04:13 01/23/25 04:15 01/23/25 04:18 Temperature Pulse Rate 99 Respiratory Rate Blood Pressure 110/64 Pulse Oximetry 97 98 Oxygen Delivery 01/23/25 04:23 01/23/25 04:28 01/23/25 04:30 Temperature Pulse Rate 101 H Respiratory Rate Blood Pressure 113/65 Pulse Oximetry 98 96 Oxygen Delivery 01/23/25 04:33 01/23/25 04:38 01/23/25 04:43 Temperature Pulse Rate Respiratory Rate Blood Pressure Pulse Oximetry 98 97 98 Oxygen Delivery 01/23/25 04:46 01/23/25 04:47 01/23/25 04:48 Temperature Pulse Rate 94 91 Respiratory Rate Blood Pressure 89/62 L 93/40 L Pulse Oximetry 98 Oxygen Delivery 01/23/25 04:53 01/23/25 04:58 01/23/25 05:01 Temperature Pulse Rate 91 Respiratory Rate Blood Pressure 90/54 L Pulse Oximetry 96 96 Oxygen Delivery 01/23/25 05:03 01/23/25 05:08 01/23/25 05:13 Temperature Pulse Rate Respiratory Rate Blood Pressure Pulse Oximetry 96 97 96 Oxygen Delivery 01/23/25 05:15 01/23/25 05:18 01/23/25 05:23 Temperature Pulse Rate 88 Respiratory Rate Blood Pressure 88/49 L Pulse Oximetry 95 96 Oxygen Delivery 01/23/25 05:28 01/23/25 05:30 01/23/25 05:33 Temperature Pulse Rate 94 Respiratory Rate Blood Pressure 93/42 L Pulse Oximetry 97 100 Oxygen Delivery 01/23/25 05:38 01/23/25 05:43 01/23/25 05:45 Temperature Pulse Rate 99 Respiratory Rate Blood Pressure 96/53 L Pulse Oximetry 99 98 Oxygen Delivery 01/23/25 05:48 01/23/25 05:53 01/23/25 05:58 Temperature Pulse Rate Respiratory Rate Blood Pressure Pulse Oximetry 98 98 99 Oxygen Delivery 01/23/25 06:00 01/23/25 06:03 01/23/25 06:08 Temperature Pulse Rate 101 H Respiratory Rate Blood Pressure 104/66 Pulse Oximetry 99 97 Oxygen Delivery 01/23/25 06:11 01/23/25 06:13 01/23/25 06:15 Temperature 98.2 F Pulse Rate 107 H Respiratory Rate Blood Pressure 110/68 Pulse Oximetry 100 Oxygen Delivery 01/23/25 06:18 01/23/25 06:23 01/23/25 06:28 Temperature Pulse Rate Respiratory Rate Blood Pressure Pulse Oximetry 99 98 100 Oxygen Delivery 01/23/25 06:30 01/23/25 06:33 01/23/25 06:38 Temperature Pulse Rate 94 Respiratory Rate Blood Pressure 115/76 Pulse Oximetry 100 100 Oxygen Delivery 01/23/25 06:43 01/23/25 06:46 01/23/25 06:48 Temperature Pulse Rate 114 H Respiratory Rate Blood Pressure 69/44 L Pulse Oximetry 100 99 Oxygen Delivery 01/23/25 06:53 01/23/25 06:58 01/23/25 07:00 Temperature Pulse Rate 90 Respiratory Rate Blood Pressure 93/53 L Pulse Oximetry 100 100 Oxygen Delivery 01/23/25 07:03 01/23/25 07:08 01/23/25 07:13 Temperature Pulse Rate Respiratory Rate Blood Pressure Pulse Oximetry 99 99 100 Oxygen Delivery 01/23/25 07:16 01/23/25 07:18 01/23/25 07:22 Temperature Pulse Rate 102 H Respiratory Rate Blood Pressure 84/41 L Pulse Oximetry 100 100 Oxygen Delivery Exam Const: General: cooperative, healthy appearing, comfortable and no acute distress Orientation/consciousness: patient oriented x3 Resp: Effort & Inspection: normal respiratory effort Cardio: Rate: regular rate GI: GI Palp: No abdominal tenderness : Other: FHT's: 140's/ mod michael/ + accels/ mild variables decels - cat 2, reassuring TOCO: ctxs q5min Cervix: 9/c/-1 Membranes: intact Presentation: cephalic Skin: General skin exam: normal color Neuro: General: patient oriented x3 Extrem: General: normal to inspection Psych: Appearance: grossly normal Affect: normal affect Attitude: cooperative H&P: Results Labs Labs: Short CBC 01/22/25 Range/Units 17:27 WBC 10.8 H (4.5-10.0) K/mm3 Hgb 11.3 L (12.0-15.0) g/dL Hct 33.3 L (37.0-47.0) % Plt Count 262 (150-375) k/mm3 Assessment and Plan Assessment and plan (1) labor in third trimester: Code(s): O60.03 - labor without delivery, third trimester Status: Acute Plan - pt presented with SROM, clear - low dose pitocin augmentation - forebag ruptured, clear this AM - continuous monitoring; occasional mild variable but overall reassuring. - s/p epidural and comfortable - GBS ppx w/ ampicillin - anticipate soon
--- NOTE | 2025-01-23 08:26 | PM.OBPRVD ---
OB - Vaginal Delivery Note Procedure Delivery date: 01/23/25 Events: Premature Rupture of Membranes and Other (intrahepatic cholestasis) Delivery augmentation: Rupture of Membranes ((forebag)) and Pitocin Delivery monitor: External FHT and External Uterine Route of delivery: Episiotomy description: None Laceration Description: None Specimen: Yes (placenta) Quantitative Blood Loss (ml): 100 Anesthesia type: Epidural Disposition: Floor Complications: No immediate complications Baby Date of : 01/23/25 Time of : 08:05 Gestational Age by Date: 36 (.1) gender: Male presentation: vertex Placenta delivery description: Expressed Cord Vessel Description: 3 Vessels and Delayed Cord Clamping score one minute: 9 score five minutes: 9 Narrative: Karina progressed to complete dilation and was found to be at +2 station on arrival to the labor room. She pushed for 1 contraction (2 pushes) and delivered the head over intact perineum. There was no nuchal cord palpated. She easily delivered the 's shoulders and body without complication. The infant was immediately placed skin to skin had spontaneous cry. Delayed cord clamping was performed. The umbilical cord was then doubly clamped and cut. A segment of cord was collected for cord gases. The remaining cord blood was collected for typing. With Pitocin running and gentle downward traction on the cord, the placenta delivered without complication. Bimanual massage was performed and good uterine tone with minimal bleeding was noted. She was examined and no lacerations were identified. Sponge, lap, instrument, and needle counts were correct at the end of the procedure. Mom and baby were left bonding in the birthing suite in stable condition.
[2025-01-23] MEDS: OXYTOCIN 30 UNITS/NS 500 ML 30 UNITS/500 ML BAG 125 UNITS IV CONT (08:32)
[2025-01-23] MEDS: IBUPROFEN 600 MG TABLET PO ×3 (10:49→22:41)
[2025-01-23] MEDS: BENZOCAINE 20% AER SPR (*SP) 56 GM CAN 1 SPRAY TOPICAL (10:49)
[2025-01-23] MEDS: WITCH HAZEL 40 PADS 1 PAD TOPICAL (10:49)
--- NOTE | 2025-01-23 12:15 | PC.NURSE ---
Introductions were made, then consulted with patient to assess needs related to . Discussed with mother her?plans to feed?her and the?experience so far. Baby has latched well and she did breastfeed her last child. Baby is 36 weeks and is getting blood sugar checks, which have been WNL. Baby just fed for 8 minutes and is still awake. Mom is going to try to latch again. Encouraged her to call out for assistance with waking or latching. Resources provided for inpatient and outpatient services with the feeding sheet, mom/baby guide and name written on the communication board. Mother voiced understanding of information and will call if there is a request for assistance. Reported to the Primary RN.
[2025-01-23] MEDS: ursodioL 300 MG CAPSULE PO (14:00)
[2025-01-23] MEDS: ACETAMINOPHEN 325 MG TABLET 650 MG PO ×2 (15:25→21:46)
--- NOTE | 2025-01-23 15:59 | PC.NURSE ---
On 01/23/25, the [facility] student counsellor,Mally, provided care and completed [employer] documentation on this patient. I have reviewed the student's documentation and agree with the findings.
[2025-01-23] MEDS: DOCUSATE SODIUM 100 MG CAPSULE PO (16:42)
--- NOTE | 2025-01-23 18:18 | PC.NURSE ---
1435 Mother called out for assistance, baby would not wake to feed after having his blood sugar checked by the Primary RN. Mother had baby skin to skin and attempted to latch baby to her right breast in cross cradle position but baby would not latch. Mother to keep baby skin to skin and will retry in 20-30 mins. Reported to the Primary RN. 1510 RN in room, baby was able to take some drops of colostrum from mother who was hand expressing but still would not latch and breastfeed. Mother requested a manual hand breast pump to use and then would feed baby. RN gave mother instructions given on cleaning, care, usage, that there should be no pain, collection, and storage of human milk. Patient was assessed for correct placement, flange size (both nipples measured 20mm, she will use the size 24 flange), to pump for comfort and nipple stretching/stimulation for adequate milk production every 3 hours (8 times in 24 hours) 1-2 times at night if baby continues to not latch and breastfeed. Parents are encouraged to record the pumping schedule on the feeding sheet.?Mother voiced understanding of the education shared along with mom/baby guide and the pump measurement, flange fit handout for additional resource information. Reported to the Primary RN. 1535 Mother fed baby 4mls by bottle per her choice, of expressed breast milk. Reported to the Primary RN.
--- NOTE | 2025-01-23 19:00 | OBPPTRN ---
1135-Patient transferred to post room #284 via wheelchair. Support person present. Oriented to unit, room, information board, rooming in, admission packet and security measures. Patient verbalizes understanding.
[2025-01-24] MEDS: ACETAMINOPHEN 325 MG TABLET 650 MG PO ×4 (05:00→23:33)
[2025-01-24] MEDS: IBUPROFEN 600 MG TABLET PO ×4 (05:02→23:34)
[2025-01-24 05:37] LABS: Hematocrit 36.1 % (37.0-47.0); Hemoglobin 12.1 g/dL (12.0-15.0); Mean Corpuscular HGB Conc 33.5 g/dl (32-36); Mean Corpuscular Hemoglobin 32.6 pg (26-34); Mean Corpuscular Volume 97.3 fl (80-100); Mean Platelet Volume 9.3 fl (7.4-10.4); Platelet Count Result 240 k/mm3 (150-375); Red Blood Count 3.71 M/mm3 (4.2-5.4); Red Cell Distribution Width 13.7 % (11.5-14.5); White Blood Count 10.9 K/mm3 (4.5-10.0)
[2025-01-24 05:55] LABS: Alanine Aminotransferase 52 U/L (6-35); Albumin Level 3.2 g/dL (3.5-5.1); Alkaline Phosphatase 250 U/L (38-126); Anion Gap 7 mmol/L (4-12); Aspartate Amino Transferase 33 U/L (14-36); Bilirubin,Total 0.6 mg/dL (0.2-1.3); Blood Urea Nitrogen 5 mg/dL (7-17); Calcium 9.1 mg/dL (8.4-10.2); Carbon Dioxide 22 mmol/L (22-30); Chloride 107 mmol/L (98-107); Estimated CRCL calculation 197 ml/min; Estimated Glomerular Filt Rate > 60; Glucose 78 mg/dL (65-110); Potassium 3.9 mmol/L (3.4-5.0); Sodium 136 mmol/L (137-145)
[2025-01-24 07:00] VITALS: BP 102/71; PULSE 63; RESP 12; TEMP 36.3; O2SAT 98
--- NOTE | 2025-01-24 07:23 | PM.OBPNVD ---
OB - PN: Subj Subjective Date/time seen: 01/24/25 07:23 Narrative: PPD#1 Karina reports doing well today. Her bleeding is impregnator and drier. Her pain is controlled. She is tolerating regular diet, voiding, passing gas, and ambulating without issues. She is breast feeding. She would like her son circumcised. OB - PN: Obj Data Labs 01/24/25 04:57 01/24/25 04:57 Labs: Laboratory Results - last 24 hr 01/24/25 04:57 WBC 10.9 H RBC 3.71 L Hgb 12.1 Hct 36.1 L MCV 97.3 MCH 32.6 MCHC 33.5 RDW 13.7 Plt Count 240 MPV 9.3 Sodium 136 L Potassium 3.9 Chloride 107 Carbon Dioxide 22 Anion Gap 7 BUN 5 L Creatinine 0.35 L Estim Creat Clear Calc 197 Estimated GFR > 60 Glucose 78 Calcium 9.1 Total Bilirubin 0.6 AST 33 ALT 52 H Alkaline Phosphatase 250 H Total Protein 7.0 Albumin 3.2 L Blood Type B Negative Antibody Screen Positive Antibody Identification TNP Antigen Identification TNP LILLIAN, IgG Interpret TNP LILLIAN, Poly Interpret TNP LILLIAN, Complement Interp TNP OB - PN A/P Assessment and Plan (1) labor: Code(s): O60.00 - labor without delivery, unspecified trimester Status: Acute (2) Normal vaginal delivery of second : Code(s): O80 - Encounter for full-term uncomplicated delivery Status: Acute Plan day: 1 Plan: routine care Comments: - PO pain meds - Regular diet - Ambulation and hydration encouraged - Continue putting baby to breast q2-3hr - Will need rhogam injection prior to discharge (son AB+) - Circumcision performed w/o issue Time Spent With Patient Time: Total time spent is greater than 50% in coordination of care (as documented) at patient's floor/unit and/or counseling patient: Review of Systems Constitutional: Constitutional: Denies chills, Denies fever(s) and Denies headache(s) Eyes: Eyes: Denies change in vision ENT: Denies dizziness and Denies headache(s) Cardiovascular: Cardiovascular: Denies chest pain, Denies palpitations and Denies dyspnea Respiratory: Respiratory: Denies cough and Denies dyspnea Gastrointestinal: Gastrointestinal: Denies nausea and Denies vomiting Neurologic: Denies dizziness and Denies headache(s) Endocrine: Endocrine: Denies palpitations Exam Const: General: cooperative, comfortable and no acute distress Orientation/consciousness: patient oriented x3 Resp: Effort & Inspection: normal respiratory effort Auscultation: clear to auscultation bilaterally Cardio: Rate: regular rate GI: Inspection: non-distended GI Palp: No abdominal tenderness and Yes Soft to palpation Auscultation: normal bowel sounds : Other: fundus firm Skin: General skin exam: normal color Neuro: General: patient oriented x3 Extrem: General: normal to inspection Psych: Appearance: grossly normal Affect: normal affect Attitude: cooperative
--- NOTE | 2025-01-24 07:27 | PM.OBDSVD ---
DS: Admitting Diagnosis Discharge Date 01/25/25 Admitting Diagnosis labor DS: Discharge Diagnosis Discharge Diagnosis (1) labor: Code(s): O60.00 - labor without delivery, unspecified trimester Status: Acute (2) Normal vaginal delivery of second : Code(s): O80 - Encounter for full-term uncomplicated delivery Status: Acute OB - DS: Summary OB Procedures : NST, Ultrasound and PTL Mgmt OB Procedures Intrapartum: Spontaneous Vag Delivery OB Procedures: : RHo (D) lg Peripartum Data Infant Delivery Method: Natural Vaginal Laceration Description: None Episiotomy description: None complications: none Electra 1: Gender: Male Disposition of : home Status at Discharge Functional status at discharge: independent ambulation Overall status at discharge: patient is back to baseline Time Spent with Patient Time attestation: Total time spent providing and/or coordinating discharge services: Exam Const: General: cooperative, healthy appearing, comfortable and no acute distress Orientation/consciousness: patient oriented x3 Resp: Effort & Inspection: normal respiratory effort Auscultation: clear to auscultation bilaterally Cardio: Rate: regular rate GI: Inspection: non-distended GI Palp: No abdominal tenderness and Yes Soft to palpation Auscultation: normal bowel sounds : Other: fundus firm Skin: General skin exam: normal color Neuro: General: patient oriented x3 Extrem: General: normal to inspection Psych: Appearance: grossly normal Affect: normal affect Attitude: cooperative DS: Data Data Completed and Pending Pending studies at discharge: Pending at discharge 01/23/25 09:48 Surgical [PTH] Routine Labs on day of discharge: Labs from last 24 hours 01/24/25 04:57 WBC 10.9 H RBC 3.71 L Hgb 12.1 Hct 36.1 L MCV 97.3 MCH 32.6 MCHC 33.5 RDW 13.7 Plt Count 240 MPV 9.3 Sodium 136 L Potassium 3.9 Chloride 107 Carbon Dioxide 22 Anion Gap 7 BUN 5 L Creatinine 0.35 L Estim Creat Clear Calc 197 Estimated GFR > 60 Glucose 78 Calcium 9.1 Total Bilirubin 0.6 AST 33 ALT 52 H Alkaline Phosphatase 250 H Total Protein 7.0 Albumin 3.2 L Blood Type B Negative Antibody Screen Positive Antibody Identification TNP Antigen Identification TNP LILLIAN, IgG Interpret TNP LILLIAN, Poly Interpret TNP LILLIAN, Complement Interp TNP Screen Pending Baby's Blood Type Pending Baby's LILLIAN Pending Doses of RhIg Required Pending Discharge Plan Discharge Attending physician on discharge: Lalita Claudio Discharging Clinician: Rudi Foster Anticipated Discharge Date/Time: 01/25/25 11:00 Patient Disposition: Home, Self-Care Activity: may shower and pelvic rest Diet: regular Patient Instructions: Vaginal Delivery (DC) Patient Language: Lao Stand Alone Forms: General Discharge Information Follow-up/Referrals: Lalita Claudio MD [Physician] - 4 Weeks Discharge Medications: New acetaminophen 325 mg Tablet 650 mg PO Q6H PRN (Reason: Mild Pain (1-3) Or Headache) Qty: 60 0RF docusate sodium 100 mg Capsule 100 mg PO BID PRN (Reason: Constipation) Qty: 90 0RF ibuprofen 600 mg Tablet 600 mg PO Q6H PRN (Reason: Cramping) Qty: 40 0RF Continued metoclopramide HCl [Reglan] 10 mg tablet 10 mg PO Q6H PRN (Reason: nausea and vomiting) Qty: 40 2RF ferrous sulfate 325 mg (65 mg iron) tablet 325 mg PO .QOD ursodiol 500 mg tablet 500 mg PO TID Classic 28 mg iron- 800 mcg tablet 1 tablet PO DAILY loratadine [Claritin] 10 mg tablet 10 mg PO DAILY PRN (Reason: allergic symptoms) magnesium oxide 200 mg magnesium tablet 200 mg PO DAILY omega 0-ick-vqo-fish oil [Fish Oil] 1,200 (144-216) mg capsule 1 cap PO DAILY Date of admission: 01/22/25 15:13 Primary Care Provider: UNKNOWN,DOCTOR Admitting Provider: Lalita Claudio Attending physician on admission: Lalita Claudio Condition: Stable
[2025-01-24 08:00] VITALS: PULSE 63; RESP 12; O2SAT 98
--- NOTE | 2025-01-24 09:02 | PC.NURSE ---
All nursing care and documentation performed by student nurse, Christine Connor, was reviewed by this RN/Clinical Instructor.
--- NOTE | 2025-01-24 09:52 | WPDANESPN ---
Anes - Prog Note Post-Op Date/Time: 01/24/25 09:52 Cardiovascular status: normal Respiratory status: normal Airway patency: baseline Mental status: baseline Post-Op hydration status: normal Vital Signs: Last Vital Signs Temp 36.3 C L 01/24/25 07:00 Pulse 63 01/24/25 07:00 Resp 12 01/24/25 07:00 BP 102/71 01/24/25 07:00 Pulse Ox 98 01/23/25 20:00 O2 Del Method Room Air 01/23/25 12:00 Pain Score (VAS): 2 Laboratory Tests 01/24/25 04:57 01/24/25 04:57 01/24/25 04:57 WBC 10.9 H RBC 3.71 L Hgb 12.1 Hct 36.1 L MCV 97.3 MCH 32.6 MCHC 33.5 RDW 13.7 Plt Count 240 MPV 9.3 Sodium 136 L Potassium 3.9 Chloride 107 Carbon Dioxide 22 Anion Gap 7 BUN 5 L Creatinine 0.35 L Estim Creat Clear Calc 197 Estimated GFR > 60 Glucose 78 Calcium 9.1 Total Bilirubin 0.6 AST 33 ALT 52 H Alkaline Phosphatase 250 H Total Protein 7.0 Albumin 3.2 L Blood Type B Negative Antibody Screen Positive Antibody Identification TNP Antigen Identification TNP LILLIAN, IgG Interpret TNP LILLIAN, Poly Interpret TNP LILLIAN, Complement Interp TNP Screen Negative Baby's Blood Type Ab pos Baby's LILLIAN Negative Doses of RhIg Required 1 Post-procedural complaints: none Patient Feedback: Patient satisfied with anesthetic care.
[2025-01-24] MEDS: LORATADINE 10 MG TABLET PO (10:53)
[2025-01-24] MEDS: MAGNESIUM OXIDE 200 MG TABLET PO (10:53)
[2025-01-24] MEDS: MULTIVIT/MIN/PREN/FOL AC/IRON TABLET 1 TAB PO (10:53)
[2025-01-24] MEDS: DOCUSATE SODIUM 100 MG CAPSULE PO (10:53)
--- NOTE | 2025-01-24 11:10 | PC.NURSE ---
Mother verbalizes she is able to independently latch with appropriate positioning and alignment. She denies any nipple discomfort and is responsively . Infant is currently meeting outcomes for weight, output, jaundice, blood sugar and feeding frequencies of 8-12 times in 24 hours. Mother declines any additional assistance or education at this time. Mother is encouraged to call for assistance if her infant doesn?t latch, pain with latching, questions or concerns. Mother voiced understanding of information shared along with the mom/baby guide for an additional resource. Reported to the Primary RN.
[2025-01-24] MEDS: RHO(D) IMMUNE GLOBULIN 300 MCG/2 ML SYRINGE IM (13:00)
[2025-01-24 22:20] VITALS: BP 110/70; PULSE 58; RESP 12; TEMP 36.6; O2SAT 100
[2025-01-25 08:30] VITALS: BP 120/72; PULSE 79; RESP 18; TEMP 36.4; O2SAT 97
[2025-01-25] MEDS: MAGNESIUM OXIDE 200 MG TABLET PO (09:10)
[2025-01-25] MEDS: MULTIVIT/MIN/PREN/FOL AC/IRON TABLET 1 TAB PO (09:10)
[2025-01-25] MEDS: ACETAMINOPHEN 325 MG TABLET 650 MG PO (09:11)
--- NOTE | 2025-01-25 12:09 | PC.NURSE ---
Consulted with mother concerning needs and she shared her ability to independently latch infant optimally without pain. Mother is feeding appropriately for growth of and understands stimulating to eat if needed. Infant has had appropriate feedings in the last 24 hours meets the outcomes for weight, output, blood sugar and jaundice at this time. Reinforced understanding of milk production, transition of milk, signs of adequate intake, transition of stool, prevention/relief of engorgement, plugged ducts, mastitis, responsive watching for feeding cues, the different methods of stimulating to breastfeed 1-3 hours after the start of the last feeding, community resources, and when to call a provider using the resource of the feeding sheet along with the mom and baby guide. Mother voiced understanding of the information shared, is confident to continue effectively her infant at home, when to call for assistance, denies any additional assistance or education at this time. Reported to the Primary RN.
--- NOTE | 2025-01-25 13:36 | PC.NURSE ---
Patient instructed on viewing the discharge video Mother & Baby Care, The First Two Weeks . Patient was given the opportunity and encouraged to ask questions. Patient verbalized understanding of information shared and has been given the mother/baby guide for home reference.
[2025-01-28 10:31] VITALS: BP 106/63; PULSE 87; RESP 18; TEMP 36.3; O2SAT 98
== END 2025-01-25 14:26 | disposition home or self-care (01) | DRG 805 ==
LOC: ANHLDR 17:01 → ANHOB2 01-24 07:25 → ANHLDR 01-28 08:48 → ANHOB2 01-28 08:48
PROVIDERS: Obstetrics & Gynecology; Admitting Provider Student in an Organized Health Care Education/Training Program; Visit Provider Student in an Organized Health Care Education/Training Program
DX: O60.14X0 Preterm labor third trimester with preterm delivery third trimester, not applicable or unspecified (principal); K83.1 Obstruction of bile duct; Z37.0 Single live birth; O26.643 Intrahepatic cholestasis of pregnancy, third trimester; Z3A.36 36 weeks gestation of pregnancy
CPT/HCPCS: 36415; 80053; 84112; 85025; 85027; 85461; 86593; 86703; 86850; 86880; 86900; 86901; 86902; 88307; 90384; A9270; G0432; J2590; J2790; J2795; J7120

== ENCOUNTER 2025-03-26 11:46 | Outpatient (CLI) | payer OTHER, SELFPAY ==
[2025-03-26 12:27] LABS: Beta HCG Quantitative < 2.39 mIU/ML
--- OUTSIDE RECORDS SUMMARY | 2025-03-26 13:10 | XMS_ITS | Encounter Summary ---
Author Organization [facility] Address [facility] [place] [address] Care Team Providers Care Cardiac Cath Rn Name Role Phone Adan Huitron DO Primary Care Provider [phone] Adan Huitron DO Primary Care Provider [phone] Maria G Kuhn Primary Care Provider + Connie Raza DO Primary Care Provider [phone] Adan Huitron DO Unavailable [phone] Maria G Kuhn Unavailable [phone] Maria G Kuhn Primary Care Provider + Encounter Details Date Type Department Care Team (Late st Contact Info) Description 02/18/2022 [place] Message Enc [facility] Family Medicine - [place] [address], [address] [place] [phone] Adan Huitron DO [address] [place] [address] Pressure behind Right eye Social History Tobacco [...] Information Value Date Recorded Sex Assigned at Female 02/21/2025 2:54 PM CDT Legal Sex Female 4:31 PM CDT Gender Identity Female 02/21/2025 2:54 PM CDT Sexual Orientation Not on file documented as of this encounter Plan of Treatment Not on file documented as of this encounter Visit Diagnoses Not on filedocumented in this encounter Additional Health Concerns Assessment Noted Time PHQ-9 Depression Total Score: 2 09/13/20 21 11:56 AM CDT documented as of this encounter Care Teams Cardiac Cath Rn Relationship Specialty Start Date End Date Adan Huitron DO PCP - General FAMILY PRACTICE 11/28/19 07/05/22 Adan Huitron DO PCP - General FAMILY PRACTICE 07/06/22 10/25/22 Maria G Kuhn APNP [address] [place] [address] PCP - General NURSE PRACTITIONER 10/26/22 11/28/22 Connie Raza DO [address] [place], [place] [address] PCP - General FAMILY PRACTICE 11/29/22 03/01/23 Maria G Kuhn APNP [address] [place] [address] PCP - General NURSE PRACTITIONER 03/02/23 Adan Huitron DO FAMILY PRACTICE 07/06/22 11/15/22 Maria G Kuhn APNP [address] [place] [address] NURSE PRACTITIONER 03/02/23 03/02/23 documented as of this encounter
--- OUTSIDE RECORDS SUMMARY | 2025-03-26 13:10 | XMS_ITS | Referral Summary ---
Author Organization [facility] [address] Address [address] [place] [phone] Care Team Providers Care Christian Education Director Name Role Phone Unknown, Notinfile Primary Care Provider Unavail able Adan Huitron DO Unavailable Encounters Date Type Department Care Team Description 01/20/2025 Orders Only [address] [phone] Keya Regalado MD Intrahepatic cholestasis of in third trimester (Primary Dx) 01/17/2025 3:40 PM DETECTIVE SUPERVISOR Lab [facility] [address] [place] [address] Intrahepatic cholestasis of in third trimester 01/14/2025 1:00 PM DETECTIVE SUPERVISOR Ancillary Procedure [address] [place] [address] 01/13/2025 - 01/14/2025 2:37 PM DETECTIVE SUPERVISOR Hospital Encounter [address] [phone] Latosha Lea MD Bligard, Katherine Hollister, MD Intrahepatic cholestasis of in third trimester (Primary Dx) Discharge Disposition: Discharge to home or self care 01/13/2025 6:59 AM DETECTIVE SUPERVISOR Anesthesia Event [address] [phone] Argentina Rodriguez MD 01/12/2025 2:16 PM DETECTIVE SUPERVISOR - 01/12/2025 11:59 PM DETECTIVE SUPERVISOR Hospital Encounter [facility] BILLING [phone] Emergency, Room R Discharge Disposition: Discharge to [...] 3 through 7 5 mL 04/24/2024 Active ursodioL (JAIME FORTE) 500 mg tablet Take 1 tablet (500 mg total) by mouth 3 (three) times a day 01/20/2025 Active Active Problems Problem Noted Date Diagnosed Date Intrahepatic cholestasis of in third t rimester 01/21/2025 Rh negative state in antepartum period, third tr imester 01/21/2025 Supervision of high-risk , third trimes ter 01/21/2025 Overview (01/21/2025): [] OB consult only, [] Co-management vs. [] Full MFM Care; [] Red Team [] Blue Team Referring Provider: F/U from [facility] Primary OB: Lalita Claudio [phone] [] or Medicare Insurance [x] Dating Criteria: [...] [] MOC: [] Method of feeding: [] Marketing Ambassador (specifically which provider): [] PP Depression Discussed: [] PP visits scheduled: Vaccines [x] Flu Shot (Jul-Oct): received 08/27/24 [] COVID vaccine: [] Tdap (27-36wks): [] RSV vaccine (32-36wks): [] PP HPV vaccine counseling (<=26 yo): Threatened labor, third trimester 2024 Acute non-recurrent maxillary sinusitis 11/19/20 21 Assessment & Plan (11/19/2021 8:28 AM DETECTIVE SUPERVISOR): -amoxicillin 500 b.i.d. -continue the loratadine -continue [...] week 01/13/2025 How often do you attend [facility] or yazidi services? 1 to 4 times per year 01/13/2025 Do you belong to any clubs o r organizations such as yarsanism groups, unions, fraternal or athletic groups, or [...] any time in the past 12 m [facility], were you homeless or living in a fdc (including now)? No 01/13/2025 Personal Safety Answer [...] on file Legal Sex Female 6:53 AM DETECTIVE SUPERVISOR Gender Identity Not on file Sexual Orientation Not on file Last Filed Vital Signs Vital Sign Reading Time Taken Comments Blood Pressure 123/67 01/14/2025 11:50 AM DETECTIVE SUPERVISOR Pulse 90 01/14/2025 11:50 AM DETECTIVE SUPERVISOR Temperature 36.7 C (98.1 F) 01/14/2025 11:50 AM DETECTIVE SUPERVISOR Respiratory Rate 16 01/14/2025 11:50 AM DETECTIVE SUPERVISOR Oxygen Saturation 99% 01/14/2025 11:50 AM DETECTIVE SUPERVISOR Inhaled Oxygen Concentration - - Weight 77.6 kg (171 lb) 01/13/2025 1:35 AM DETECTIVE SUPERVISOR Height 165.1 cm (5' 5 ) 01/13/2025 12:07 AM DETECTIVE SUPERVISOR Body Mass Index 28.46 01/13/2025 12:07 AM DETECTIVE SUPERVISOR Plan of Treatment Not on file Procedures Procedure Name Priority Date/Time Associated Diagnosis Comments EGFR Routine 01/17/2025 1:57 PM DETECTIVE SUPERVISOR Intrahepatic cholestasis of in third trimester COMPREHENSIVE METABOLIC PANEL Routine 01/17/2025 1:57 PM DETECTIVE SUPERVISOR Intrahepatic cholestasis of in third trimester BILE ACIDS, TOTAL Routine 01/17/2025 1:5 7 PM DETECTIVE SUPERVISOR Intrahepatic cholestasis of in third trimester US OB 14 WEEKS OR OVER IP Routine 1:32 PM DETECTIVE SUPERVISOR EGFR Timed 01/14/2025 8:23 AM DETECTIVE SUPERVISOR COMPREHENSIVE METABOLIC PANEL Timed 01/14/2025 8:23 AM DETECTIVE SUPERVISOR ANTIBODY IDENTIFICATION Routine 01/13/2025 2:54 AM DETECTIVE SUPERVISOR URINE CULTURE Routine 01/13/2025 2:07 AM DETECTIVE SUPERVISOR B CHECK SAMPLE STAT 01/13/2025 2:04 AM DETECTIVE SUPERVISOR TRICHOMONAS VAGINALIS PCR Routine 01/13/2025 1:32 AM DETECTIVE SUPERVISOR N. GONORRHOEAE/C. TRACHOMATIS AMPLIFICATION Routine 01/13/2025 1:32 AM DETECTIVE SUPERVISOR GROUP B STREPTOCOCCUS CULTURE Routine 01/13/2025 1:32 AM DETECTIVE SUPERVISOR EGFR STAT 01/13/2025 1:29 AM DETECTIVE SUPERVISOR BILE ACIDS, TOTAL Timed 01/13/2025 1:2 9 AM DETECTIVE SUPERVISOR COMPREHENSIVE METABOLIC PANEL STAT 01/13/2025 1:29 AM DETECTIVE SUPERVISOR TYPE AND SCREEN Timed 01/13/2025 1:29 AM DETECTIVE SUPERVISOR CBC WITHOUT DIFFERENTIAL Routine 01/13/2025 1:29 AM DETECTIVE SUPERVISOR RPR Routine 01/13/2025 1:29 AM DETECTIVE SUPERVISOR HIV 1/2 ANTIBODY PLUS P24 ANTIGEN Routine 01/13/2025 1:29 AM DETECTIVE SUPERVISOR from Last 3 Months Results * eGFR (01/17/2025 1:57 PM DETECTIVE SUPERVISOR) eGFR >90 >=60 mL/min/1. 73 m2 Comment: [...] last reviewed 2021. Blood 01/17/2025 1:57 PM DETECTIVE SUPERVISOR 01/17/2025 2:42 PM DETECTIVE SUPERVISOR us Keya Regalado MD LAB BLOOD ORDERAB LES Final Result Performing Organization Address City/[facility] Co de Phone Number [facility] [place] [address] * (ABNORMAL) Bile acids (01/17/2025 1:57 PM DETECTIVE SUPERVISOR) [facility] Bile acids 55(H) <=10 mcmol/L [place] [facility] Comment: Test Performed by: [place] [address] Leather Cutter: Mayuri Stone Ph.D.; CLIA# [id number] Blood 01/17/2025 1:57 PM DETECTIVE SUPERVISOR 01/17/2025 4:11 PM DETECTIVE SUPERVISOR Narrative [facility] - 01/19/2025 1:02 PM DETECTIVE SUPERVISOR sent 1.0 ml serum us Keya Regalado MD LAB BLOOD ORDERAB LES Final Result Performing Organization Address [facility] de Phone Number [facility] [place] [address] [place] ref [facility] * (ABNORMAL) Comprehensive metabolic panel (01/17/2025 1:57 PM DETECTIVE SUPERVISOR) [facility] Sodium 138 135 - 145 mmol/L Potassium, pl 3.8 3.3 - 4.9 mmol/L [facility] Chloride 103 97 - 110 mmol/L [facility] CO2 27 22 - 32 mmol/L [facility] Anion gap 8 2 - 15 mmol/L [facility] BUN 7 6 - 25 mg/dL [facility] Creatinine 0.53(L) 0.60 - 1.10 mg/dL [facility] Glucose 91 70 - 199 mg/dL [facility] Comment: Interpretive Data Fasting glucose >/= 126 [...] 2022. Calcium 9.1 8.5 - 10.3 mg/dL [facility] Bilirubin, total 0.9 0.1 - 1.2 mg/dL [facility] Protein, pl 7.2 6.5 - 8.5 g/dL [facility] Albumin 3.5 3.5 - 5.0 g/dL [facility] Alk phos 309(H) 40 - 130 Units/L [facility] ALT 105(H) 7 - 45 Units/L [facility] AST 58(H) 10 - 45 Units/L [facility] Blood 01/17/2025 1:57 PM DETECTIVE SUPERVISOR 01/17/2025 2:39 PM DETECTIVE SUPERVISOR us Keya Regalado MD LAB BLOOD ORDERAB LES Final Result [facility] [place] [address] * US Ob 14 Weeks Or Over (01/14/2025 1:32 PM DETECTIVE SUPERVISOR) Fetus# Fetus1 [facility] Estimated Weight 2,817 g&grams [facility] Placenta Details anterior, Previa-no, no placental masses [facility] Presentation Vertex [facility] Anatomical Region Laterality Modality Abdomen N/A Ultrasound 01/14/2025 1:32 PM DETECTIVE SUPERVISOR Impressions 01/14/2025 3:03 PM DETECTIVE SUPERVISOR IUP at 34w 6d. 1. Biometric measurements [...] Final Result * eGFR (01/14/2025 8:23 AM DETECTIVE SUPERVISOR) eGFR >90 >=60 mL/min/1. 73 m2 Comment: [...] last reviewed 2021. Blood 01/14/2025 8:23 AM DETECTIVE SUPERVISOR 01/14/2025 8:42 AM DETECTIVE SUPERVISOR us Sharon Gomes MD LAB BLOOD ORDERABLES Fi nal Result [facility] [place] [address] * (ABNORMAL) Comprehensive metabolic panel (01/14/2025 8:23 AM DETECTIVE SUPERVISOR) Sodium 138 135 - 145 mmol/L Potassium, pl 3.7 3.3 - 4.9 mmol/L [facility] Chloride 106 97 - 110 mmol/L [facility] CO2 22 22 - 32 mmol/L [facility] Anion gap 10 2 - 15 mmol/L [facility] BUN 5(L) 6 - 25 mg/dL [facility] Creatinine 0.34(L) 0.60 - 1.10 mg/dL [facility] Glucose 172 70 - 199 mg/dL [facility] Comment: Interpretive Data Fasting glucose >/= 126 [...] 2022. Calcium 9.0 8.5 - 10.3 mg/dL [facility] Bilirubin, total 1.2 0.1 - 1.2 mg/dL [facility] Protein, pl 7.2 6.5 - 8.5 g/dL [facility] Albumin 3.6 3.5 - 5.0 g/dL [facility] Alk phos 334(H) 40 - 130 Units/L [facility] ALT 69(H) 7 - 45 Units/L [facility] AST 51(H) 10 - 45 Units/L [facility] Blood 01/14/2025 8:23 AM DETECTIVE SUPERVISOR 01/14/2025 8:42 AM DETECTIVE SUPERVISOR Sharon Gomes MD LAB BLOOD ORDERABLES Fi nal Result [facility] [place] [address] * Antibody identification (01/13/2025 2:54 AM DETECTIVE SUPERVISOR) Antibody ID 1 Passive Anti-D Blood 01/13/2025 2:54 AM DETECTIVE SUPERVISOR 01/13/2025 2:54 AM DETECTIVE SUPERVISOR Latosha Lea MD LAB BLOOD BANK TEST ORDERA BLES Final Result Performing Organization Address [facility] Co de Phone Number [facility] [place] [address] * Urine culture Urine, clean voided (01/13/2025 2:07 AM DETECTIVE SUPERVISOR) Report Final Report: Less than 100,000 colonies/mL (clinically insignificant growth based on current clinical standards) Organism (CLINICALLY INSIGNIFICANT GROWTH [facility] Urine, clean voided 01/13/2025 2:07 AM DETECTIVE SUPERVISOR 01/13/2025 2:26 AM DETECTIVE SUPERVISOR Narrative [facility] - 01/14/2025 7:17 AM DETECTIVE SUPERVISOR Indications for Culture:-> patient Testing performed by [facility]biology Laboratory ([phone]) Latosha Lea MD LAB MICROBIOLOGY - GENERAL ORDERABLES Final Result Performing Organization Address [facility] Co de Phone Number [facility] [place] [address] * Check Sample (01/13/2025 2:04 AM DETECTIVE SUPERVISOR) ABO Rh B Negative [facility] HCLL OTHER 01/13/2025 2:04 AM DETECTIVE SUPERVISOR 01/13/2025 2:14 AM DETECTIVE SUPERVISOR Latosha Lea MD LAB BLOOD ORDERABLES Final Result Performing Organization Address City/[facility] Co de Phone Number [facility] [place] [address] [facility] * N. gonorrhoeae/C. trachomatis Amplification Vaginal (01/13/2025 1:32 AM DETECTIVE SUPERVISOR) Pathologist [facility] C. trachomatis Not Detected Not Detected [facility] N. gonorrhoeae Not Detected Not Detected [facility] Comment: Interpretive Data This assay detects Chlamydia trachomatis and Neisseria gonorrhoeae by nucleic acid amplification testing (NAAT). This assay has been cleared by the [place] Food and Drug administration. The performance characteristics of this test have been verified by the [facility] Molecular Infectious Disease laboratory. The performance characteristics of this test have not been evaluated in individuals less than 14 years of age. Current Interpretive Data last revised 2023. Vaginal (None) 01/13/2025 1: 32 AM DETECTIVE SUPERVISOR 01/13/2025 1:50 AM DETECTIVE SUPERVISOR Latosha Lea MD LAB MICROBIOLOGY - GENERAL ORDERABLES Final Result Performing Organization Address [facility] Co de Phone Number ANN MARIE [facility] [place] [address] [facility] * Trichomonas vaginalis PCR Vaginal (01/13/2025 1:32 AM DETECTIVE SUPERVISOR) Trichomonas DNA Not Detected Not Detected [facility] Comment: Interpretive Data This assay detects Trichomonas vaginalis by nucleic acid amplification testing (NAAT). This assay has been cleared by the [place] Food and Drug administration. The performance characteristics of this test have been verified by the [facility] Molecular Infectious Disease laboratory. Excess blood in specimens may be inhibitory and result in false negative results. The performance of this test has not been evaluated in women or individuals less than 18 years of age. Current Interpretive Data last revised 2023. Vaginal 01/13/2025 1:32 AM DETECTIVE SUPERVISOR 01/13/2025 1:50 AM DETECTIVE SUPERVISOR Latosha Lea MD LAB MICROBIOLOGY - GENERAL ORDERABLES Final Result Performing Organization Address City/[facility] Co de Phone Number ANN MARIE [facility] [place] [address] [facility] * Group B streptococcal culture Vaginal/Rectal (01/13/2025 1:32 AM DETECTIVE SUPERVISOR) Report Final Report: Negative Vaginal/Rectal 01/13/2025 1: 32 AM DETECTIVE SUPERVISOR 01/13/2025 2:29 AM DETECTIVE SUPERVISOR Narrative ANN MARIE ADAN - 01/15/2025 8:41 PM DETECTIVE SUPERVISOR Testing performed by [facility]biology Laboratory ([phone]). Latosha Lea MD LAB MICROBIOLOGY - GENERAL ORDERABLES Final Result Performing Organization Address City/[facility]/ZIP Co de Phone Number [facility] [place] [address] * eGFR (01/13/2025 1:29 AM DETECTIVE SUPERVISOR) eGFR >90 >=60 mL/min/1. 73 m2 Comment: [...] last reviewed 2021. Blood 01/13/2025 1:29 AM DETECTIVE SUPERVISOR 01/13/2025 1:41 AM DETECTIVE SUPERVISOR Latosha Lea MD LAB BLOOD ORDERABLES Final Result Performing Organization Address City/[facility]/ZIP Co de Phone Number ANN MARIE AD[facility] [place] [address] * HIV 1/2 Antibody plus p24 Antigen Blood (01/13/2025 1:29 AM DETECTIVE SUPERVISOR) HIV 1/2 ab + p24 ag Nonreactive Nonreactive Comment:Nonreactive for HIV- 1 antigen and HIV-1/HIV-2 antibodies. No laboratory evidence of HIV infection. If acute HIV infection is suspected, consider testing for HIV-1 RNA. Current interpretive data was last revised on 22. Blood 01/13/2025 1:29 AM DETECTIVE SUPERVISOR 01/13/2025 1:41 AM DETECTIVE SUPERVISOR Latosha Lea MD LAB MICROBIOLOGY - GENERAL ORDERABLES Final Result Performing Organization Address [facility] [place] [address] * (ABNORMAL) Bile acids (01/13/2025 1:29 AM DETECTIVE SUPERVISOR) Pathologist [facility] Bile acids 22(H) <=10 mcmol/L [place] ref Lab Comment: Test Performed by: [facility] [place] [address] Leather Cutter: Mayuri Stone Ph.D.; CLIA# [id number] Blood 01/13/2025 1:29 AM DETECTIVE SUPERVISOR 01/13/2025 4:41 AM DETECTIVE SUPERVISOR Latosha Lea MD LAB BLOOD ORDERABLES Final Result Performing Organization Address [facility] de Phone Number [facility] [place] [address] [place] ref [facility] * RPR Blood (01/13/2025 1:29 AM DETECTIVE SUPERVISOR) Pathologist [facility] RPR Nonreactive Nonreactive Blood 01/13/2025 1:29 AM DETECTIVE SUPERVISOR 01/13/2025 1:41 AM DETECTIVE SUPERVISOR Latosha Lea MD LAB MICROBIOLOGY - GENERAL ORDERABLES Final Result Performing Organization Address [facility] de Phone Number [facility] [place] [address] * (ABNORMAL) CBC without differential (01/13/2025 1:29 AM DETECTIVE SUPERVISOR) Pathologist [facility] WBC 13.2(H) 3.8 - 9.9 K/cumm Hgb 10.9(L) 11.9 - 15.5 g/dL [facility] Hct 32.5(L) 35.6 - 45.5 % [facility] Plt 236 150 - 400 K/cumm [facility] MPV 9.1 9.1 - 12.3 fL [facility] RBC 3.43(L) 3.90 - 5.20 M/cumm [facility] MCV 94.8 81.3 - 96.4 fL [facility] MCH 31.8 27.1 - 33.3 pg [facility] MCHC 33.5 32.3 - 35.7 g/dL [facility] RDW CV 13.5 11.1 - 14.9 % [facility] RDW SD 45.8 35.7 - 48.1 fL [facility] NRBC abs 0.00 0.00 - 0.01 K/cumm [facility] Blood 01/13/2025 1:29 AM DETECTIVE SUPERVISOR 01/13/2025 1:41 AM DETECTIVE SUPERVISOR Latosha Lea MD LAB BLOOD ORDERABLES Final Result [facility] [place] [address] * (ABNORMAL) Type and screen (01/13/2025 1:29 AM DETECTIVE SUPERVISOR) [facility] [place], indirect Positive(A) ABO Rh B Negative [facility] Blood 01/13/2025 1:29 AM DETECTIVE SUPERVISOR 01/13/2025 1:48 AM DETECTIVE SUPERVISOR Narrative [facility] - 01/13/2025 2:54 AM DETECTIVE SUPERVISOR Has the patient had Daratumumab or Isatuximab in the past 6 months?->Unknown Latosha Lea MD LAB BLOOD BANK TEST ORDERA SUBHAS Final Result [facility] [place] [address] * (ABNORMAL) Comprehensive metabolic panel (01/13/2025 1:29 AM DETECTIVE SUPERVISOR) Sodium 139 135 - 145 mmol/L Potassium, pl 4.0 3.3 - 4.9 mmol/L [facility] Chloride 108 97 - 110 mmol/L [facility] CO2 22 22 - 32 mmol/L [facility] Anion gap 9 2 - 15 mmol/L [facility] BUN 5(L) 6 - 25 mg/dL [facility] Creatinine 0.36(L) 0.60 - 1.10 mg/dL [facility] Glucose 117 70 - 199 mg/dL [facility] Comment: Interpretive Data Fasting glucose >/= 126 [...] 2022. Calcium 8.9 8.5 - 10.3 mg/dL [facility] Bilirubin, total 1.4(H) 0.1 - 1.2 mg/dL [facility] Protein, pl 7.1 6.5 - 8.5 g/dL [facility] Albumin 3.4(L) 3.5 - 5.0 g/dL [facility] Alk phos 355(H) 40 - 130 Units/L [facility] ALT 55(H) 7 - 45 Units/L [facility] AST 50(H) 10 - 45 Units/L [facility] Blood 01/13/2025 1:29 AM DETECTIVE SUPERVISOR 01/13/2025 1:41 AM DETECTIVE SUPERVISOR us Latosha Lea MD LAB BLOOD ORDERABLES Final Result ANN MARIE [facility] [place] [address] from Last 3 Months Insurance [employer] ACCESS [employer] ACCESS CIG OPEN ACCESS Advance Directives For more information, please contact: [phone] * Full Code (Latest Code Status on File) Date Activated Date Inactivated Comments 01/13/2025 12:17 AM 01/14/2025 6:51 PM Care Teams Christian Education Director Relationship Specialty Start Date End Date Unknown, Notinfile PCP - General 04/24/24 Adan Huitron DO Family Medicine 04/24/24
--- OUTSIDE RECORDS SUMMARY | 2025-03-26 13:10 | XMS_ITS | Clinical Summary ---
Author Organization [facility] Address [address] [place] [address] Care Team Providers Care Parachutist/Combatant Diver Qualified Name Role Phone Maria G Kuhn Primary Care Provider [phone] Allergies Active Allergy Reactions Criticality Noted Date Comments Benzoyl Peroxide Hives Medium 07/06/2022 Molds & Smuts Other (see comment) Low 02/18/2022 Medications Multiple Vitamin (MULTI-VITAMIN ) tablet Take 1 tablet by mouth. Active [place]-3 Fatty Acids (KP FISH OIL) 1200 MG Cap Take by mouth Active butalbital-alex taminophen-caf feine (FIORICET) 50-300-40 MG capsule TAKE 1 CAPSULE BY MOUTH EVERY 8 HOURS NEEDED FOR PAIN 4 Active loratadine (CLARITIN) 10 MG tablet Take 1 tablet (10 mg total) by mouth daily. Active vitamin, low iron, 27-0.8 mg tablet Take 1 tablet by mouth daily. Active Biotin w/ Vitamins C & E (HAIR/SKIN/OSCAR LS OR) 025 Discontinued BACITRACIN-JENIFER YMYXIN B, OPHTH, (POLYSPORIN) OintmentIndica tions:Hordeolu m externum of left upper eyelid Place into both eyes 2 (two) times daily. 3.5 g 1 3 025 Discontinued predniSONE (DELTASONE) 10 mg tabletIndicati ons:Tendonitis of ankle or foot Start 60 mg today and decrease by one tablet each day until complete. 21 tablet 3 025 Discontinued vitamin D3, cholecalcifero l, 10 mcg tablet Take 1 tablet (400 Units total) by mouth daily. 025 Discontinued fexofenadine (JOSE) 60 MG tablet Take 1 tablet (60 mg total) by mouth daily. 025 Discontinued Active Problems Problem Noted Date Diagnosed Date Vaginal delivery ([facility] 07/08/2022 ([facility]) 10/28/2021 Seasonal allergic rhinitis due to pollen 020 Resolved Problems Problem Noted Date Diagnosed Date Resolved Date ([facility]) 07/06/2022 07/08/20 22 Arthralgia of shoulder 12/06/201202/27 Encounters Date Type Department Care Team Description 02/28/2025 8:50 AM CDT Laboratory Only [facility] [place] [address] [place] [address] Maria G Kuhn APNP 02/28/2025 8:20 AM CDT Office Visit [facility] [place] [address] [place] [address] Maria G Kuhn APNP Annual (Hx of ICP during , would like liver levels checked to make sure they are back to normal after delivery ) 02/28/2025 - 02/28/2025 11:59 PM CDT Hospital Encounter [facility] [address] [place] [address] Maria G Kuhn APNP Discharge Disposition: Home or Self Care (Routine Discharge) 02/28/2025 Travel 02/27/2025 MyChart Message Enc [facility] [place] [address] [place] [address] Maria G Kuhn APNP Yearly Health Maintenance Visit Due from Last 3 Months Immunizations Immunization Administration Dates Next Due DTaP-IPV (Quadracel) 07/09/2001,1997,05/27 Dtap (Generic) 07/27/2001, 8,1997,08/27,1997 Fluzone 6 Months+ Quad (0.5 mL Prefilled Syringe) 11/30/2022,09/13/2021,09/04/2020,12/05 HPV4 (Gardasil) 03/08/2010,08/13/2008,05/13/2008 Hepatitis A (Generic) 07/01/2003,12/27/2002 Hepatitis B (Generic Peds) 1997,1997 ,1997 Hib (Generic) 09/17/1998, 7,1997,05/27 Influenza (Generic) 08/27/2024 Influenza Adult (Generic) 12/05/2019,,09/27/2007,11/17 Influenza Peds (Generic) 11/17/1999 MMR (Generic) 07/09/2001,09/17/1998 Meningococcal (Menactra) 05/13/2008 Opv 09/17/1998 Polio Ipv (Generic) 07/09/2001,1997,1996 Polio Opv (Generic) 09/17/1998 Tdap (Adacel) 09/13/2021 Tdap (Generic) 05/13/2008 Family History Medical History Relation Comments No Known Problems Father Alzheimers Maternal Grandmother Diabetes Maternal Grandmother Hypertension Maternal Grandmother Arthritis Mother degenerative disc Mother Asthma Sister 1 Hypertension Sister 1 Depression Sister 2 Hypertension Sister 3 Relation Status Comments Father Maternal Grandmother Mother Sister 1 Sister 2 Sister 3 Social History Tobacco Use Types Packs/Day Years Used Date Smoking Tobacco: Never Smokeless Tobacco: Never Tobacco Cessation:Counseling Given: Yes Comments:The provider can provide you with more information about quitting. Alcohol Use Standard Drinks/Week Comments Yes 1 (1 standard drink = 0.6 oz pur e alcohol) AUDIT-C Answer Date Recorded Frequency of Alcohol Consumption Never 12/05/2019 Average Number of Drinks Not on file 020 Frequency of Binge Drinking Not on file 07/2020 PHQ-2 Answer Date Recorded Patient Health Questionnaire-2 Score 0 02/28/2025 Depression Answer Date Recor ded Last EPDS Total Score 2 02/24/2023 Last EPDS Self Harm Result Sometimes 02/24 Comments No Sex and Gender Information Value Date Recorded Sex Assigned at Female 02/21/2025 2:54 PM CDT Legal Sex Female 4:31 PM CDT Gender Identity Female 02/21/2025 2:54 PM CDT Sexual Orientation Not on file Last Filed Vital Signs Vital Sign Reading Time Taken Comments Blood Pressure 106/71 02/28/2025 8:19 AM CDT Pulse 86 02/28/2025 8:19 AM CDT Temperature 36.7 C (98 F) 02/28/2025 8:19 AM CDT Respiratory Rate 19 02/28/2025 8:19 AM CDT Oxygen Saturation 99% 02/28/2025 8:19 AM CDT Inhaled Oxygen Concentration - - Weight 72.6 kg (160 lb) 02/28/2025 8:19 AM CDT Height 166.4 cm (5' 5.5 ) 02/28/2025 8:19 AM CDT Body Mass Index 26.22 02/28/2025 8:19 AM CDT Plan of Treatment Health Maintenance Due Date Last Done Comments Hepatitis C 2015 Cervical Cancer Screening Pap Smear (Age 21 to 29) Every 3 Years 09/04/2023 09/04/2020, 09/04/2020 Cervical Cancer Screening 09/04/2023 COVID-19 Vaccine ( season) 2024 02/02/2021 Annual Physical 02/28/2026 02/28/2025, 04/2023, 11/30/2022, Additional history exists DTaP, Tdap and Td Vaccines (8 - Td or Tdap) 09/13/2031 09/13/2021, 05/13/2008, 07/27/2001, Additional history exists Hepatitis B Vaccines Completed 1997, 1997, 1997 Meningococcal Vaccine Aged Out 05/13/2008 No dawn josé miguel eligible based on patient's age to complete this topic HPV Vaccines Completed 03/08/2010, 07/28, 05/13/2008 PHQ-2 (Physician [place]) Completed 02/28/2025 Meningococcal B Vaccine Aged Out No l onger eligible based on patient's age to complete this topic Pneumococcal Vaccine: Pediatrics (0 to 5 Years) and At-Risk Patients (6 to 49 Years) Aged Out No longer eligible based on patient's age to complete this topic RSV Immunizations Under 20 Months Aged Out No longer eligible based on patient's age to complete this topic Procedures Procedure Name Priority Date/Time Associated Diagnosis Comments ANTINUCLEAR ANTIBODY WI RFX Routine 02/28/2025 8:59 AM CDT Chronic fatigue Arthralgia, unspecified joint FOLIC ACID SERUM Routine 02/28/2025 8:59 AM CDT Healthcare maintenance VITAMIN B-12 Routine 02/28/2025 8:59 AM CDT Healthcare maintenance VITAMIN D, 25 OH Routine 02/28/2025 8:59 AM CDT Healthcare maintenance TSH W/REFLEX Routine 02/28/2025 8:59 AM CDT Healthcare maintenance Screening for thyroid disorder LIPID PANEL Routine 02/28/2025 8:59 AM CDT Healthcare maintenance Screening for hyperlipidemia COMPREHENSIVE METABOLIC PANEL Routine 02/28/2025 8:59 AM CDT Healthcare maintenance Screening for diabetes mellitus (DM) Intrahepatic cholestasis of in third trimester (HHS/HCC) CBC W/DIFF AUTOMATED Routine 02/28/2025 8:59 AM CDT Healthcare maintenance HEMOGLOBIN, GLYCOSYLATED Routine 02/28/2025 8:59 AM CDT Healthcare maintenance Screening for diabetes mellitus (DM) AMYLASE Routine 02/28/2025 8:59 AM CDT Intrahepatic cholestasis of in third trimester (HHS/HCC) LIPASE Routine 02/28/2025 8:59 AM CDT Intrahepatic cholestasis of in third trimester (HHS/HCC) RHEUMATOID FACTOR, QUANT Routine 02/28/2025 8:59 AM CDT Chronic fatigue Arthralgia, unspecified joint SED RATE, ERYTHROCYTE (ESR) Routine 02/28/2025 8:59 AM CDT Chronic fatigue Arthralgia, unspecified joint COLLECTION VENOUS BLOOD VENIPUNCTURE Routine 02/28/2025 8:49 AM CDT Healthcare maintenance CYTOPATH CERV/VAG THIN LAYER Routine 09/04/2020 12:00 AM CDT Encounter for screening for malignant neoplasm of cervix from Last 3 Months or Most Recently Relevant to Health Maintenance Results * TSH W/REFLEX (02/28/2025 8:59 AM CDT) TSH 0.792 0.358 - 3.740 uIU/ML 02/28/2025 4:24 PM CDT [facility] 02/28/2025 8:59 AM CDT Maria G Bam [facility] Final Result [facility] [address] [place] [address], * ANTINUCLEAR ANTIBODY WI RFX (DANA) (02/28/2025 8:59 AM CDT) DANA 0.3 03/03/2025 1:25 PM CDT [facility] Comment: NEGATIVE: <0.7 RATIO DANA PROFILE AND TITER NOT PERFORMED THE DANA SCREEN TESTS FOR THE FOLLOWING ANTIBODIES BY EIA: SSA1 (RO), SSB1 (LA), PONCE, SCL70, JO1, CENTROMERE, FLOOR TECH HISTONE MUST BE ORDERED SEPARATELY DNA (DS) ANTIBODY 1.3 IU/ML 025 1:25 PM CDT [facility] Comment: NEGATIVE: <10 IU/mL EQUIVOCAL: 10 to 15 IU/mL POSITIVE: >15 IU/mL THIS QUANTITATIVE ASSAY IS CALIBRATED TO THE [employer]'S WO/80 STANDARD. THE LEVEL OF dsDNA AUTOANTIBODY GERERALLY CORRELATES WITH THE LEVEL OF DISEASE ACTIVITY IN SYSTEMIC LUPUS ERYTHMATOSUS 02/28/2025 8:59 AM CDT [facility] Final Result [facility] [address] [place] [address], [place] [phone] * RHEUMATOID FACTOR, QUANT (02/28/2025 8:59 AM CDT) RHEUMATOID FACTOR <10 <15 IU/ML 02/28/2025 5:49 PM CDT [facility] 02/28/2025 8:59 AM CDT [facility] Final Result Performing Organization Address [facility] Co de Phone Number [facility] [address] [place] [address], [place] [phone] * (ABNORMAL) HEMOGLOBIN, GLYCOSYLATED (02/28/2025 8:59 AM CDT) HGB A1C 5.4 4.5 - 6.2 % 02/28/2025 4:07 PM CDT [facility] ESTIMATED AVG GLUCOSE 108(H) 74 - 106 MG/DL 02/28/2025 4:07 PM CDT [facility] 02/28/2025 8:59 AM CDT [facility] Final Result Performing Organization Address City/[facility]/ZIP Co de Phone Number [facility] [address] [place] [address], [place] [phone] * VITAMIN B-12 (02/28/2025 8:59 AM CDT) VITAMIN B12 S/P/B 569 193 - 986 PG/ML 02/28/2025 4:24 PM CDT [facility] 02/28/2025 8:59 AM CDT [facility] Final Result [address] [place] [address] [place] [address], [place] [phone] * SED RATE, ERYTHROCYTE (ESR) (02/28/2025 8:59 AM CDT) ESR 8 0 - 19 MM/HR 02/28/2025 3:26 PM CDT [facility] 02/28/2025 8:59 AM CDT [facility] Final Result Performing Organization Address [facility] Co de Phone Number [address] [place] [address] [place] [address], [place] [phone] * (ABNORMAL) COMPREHENSIVE METABOLIC PANEL (02/28/2025 8:59 AM CDT) SODIUM S/P/B 141 136 - 145 MMOL/L 02/28/2025 4:24 PM CDT [facility] POTASSIUM S/P/B 4.0 3.5 - 5.1 MMOL/L 02/28/2025 4:24 PM CDT [facility] CHLORIDE S/P/B 107 98 - 107 MMOL/L 02/28/2025 4:24 PM CDT [facility] CO2 27.6 21 - 32 MMOL/L 02/28/2025 4:24 PM CDT [facility] GLUCOSE 68(L) 70 - 99 MG/DL 02/28/2025 4:24 PM CDT [facility] BUN 11 7 - 18 MG/DL 02/28/2025 4:24 PM CDT [facility] CREATININE S/P/B 0.66 0.55 - 1.02 MG/DL 02/28/2025 4:24 PM T [facility] CALCIUM S/P/B 9.1 8.4 - 10.5 MG/DL 02/28/2025 4:24 PM [facility] BILIRUBIN TOTAL S/P/B 0.3 0.2 - 1.0 MG/DL 02/28/2025 4:24 PM T [facility] ALKALINE PHOSPHATASE S/P/B 138(H) 37 - 98 U/L 02/28/2025 4:24 PM CDT [facility] AST 21 15 - 37 U/L 02/28/2025 4:24 PM T [facility] ALT 32 14 - 59 U/L 02/28/2025 4:24 PM [facility] TOTAL PROTEIN S/P/B 7.3 6.4 - 8.2 G/DL 02/28/2025 4:24 PM [facility] ALBUMIN S/P/B 3.9 3.4 - 5.0 G/DL 02/28/2025 4:24 PM [facility] ANION GAP 6.4 5 - 15 MMOL/L 02/28/2025 4:24 PM [facility] Comment:REFERENCE RANGE NOT ESTABLISHED OSMOLALITY (CALC) 290 MOSM/KG 025 4:24 PM [facility] Comment:REFERENCE RANGE NOT ESTABLISHED GFR ESTIMATE >90 >90 ML/MIN/1. 73 M2 02/28/2025 4:24 PM [facility] GFR NOTES GFR REFERENCE S: 02/28/2025 4:24 PM [facility] Comment: THE ESTIMATED GFR IS CALCULATED USING THE 2020 CKD-EPI EQUATION. THE FOLLOWING CATEGORIES FOR GRADING RENAL FUNCTION ARE RECOMMENDED BY THE INTERNATIONAL SOCIETY OF NEPHROLOGY (KDIGO 2012 CLINICAL PRACTICE GUIDELINE). G1,NORMAL OR HIGH: >89 ml/min/1.73 m2 G2,MILDLY DECREASED: 60-89 ml/min/1.73 m2 G3A,MILDLY TO MODERATELY DECREASED: 45-59 ml/min/1.73 m2 G3B,MODERATELY TO SEVERELY DECREASED: 30-44 ml/min/1.73 m2 G4,SEVERELY DECREASED: 15-29 ml/min/1.73 m2 G5,KIDNEY FAILURE: <15 ml/min/1.73 m2 02/28/2025 8:59 AM CDT Maria G Bam [facility] Final Result [facility] [address] [place] [address], * (ABNORMAL) LIPID PANEL (02/28/2025 8:59 AM CDT) CHOLESTEROL 203(H) <200 MG/DL 02/28/2025 4:24 PM CDT [facility] TRIGLYCERIDES 48 <150 MG/DL 02/28/2025 4:24 PM CDT [facility] HDL 95 >40 MG/DL 02/28/2025 4:24 PM CDT [facility] LDL-C 98 <100 MG/DL 02/28/2025 4:24 PM CDT [facility] VLDL CALCULATION 10 5 - 28 MG/DL 02/28/2025 4:24 PM CDT [facility] CHOL/HDL RATIO 2.1 0.0 - 4.0 02/28/2025 4:24 PM CDT [facility] LDL/HDL 1.0 0.41 - 2.13 02/28/2025 4:24 PM CDT [facility] NON HDL CHOLESTEROL 108 <140 MG/DL 02/28/2025 4:24 PM CDT [facility] 02/28/2025 8:59 AM CDT [facility] Final Result Performing Organization Address City/[facility]/ZIP Co de Phone Number [facility] [place] [address] [place] [address], * FOLIC ACID SERUM (02/28/2025 8:59 AM CDT) FOLATE >20.0 8.6 - 58.9 NG/ML 02/28/2025 4:22 PM CDT [facility] 02/28/2025 8:59 AM CDT [facility] Final Result Performing Organization Address [facility] Co de Phone Number [facility] [place] [address] [place] [address], * (ABNORMAL) CBC W/DIFF AUTOMATED (02/28/2025 8:59 AM CDT) WBC 5.83 4.00 - 10.80 x10'3/uL 02/28/2025 3:45 PM CDT [facility] RBC 4.19 4.10 - 5.40 x10'6/uL 02/28/2025 3:45 PM CDT [facility] HGB 13.3 12.0 - 16.0 G/DL 02/28/2025 3:45 PM CDT [facility] HCT 39.3 36.0 - 47.0 % 02/28/2025 3:45 PM CDT [facility] MCV 93.8 78.0 - 100.0 FL 02/28/2025 3:45 PM CDT [facility] MCH 31.7(H) 27.0 - 31.0 PG 02/28/2025 3:45 PM CDT [facility] MCHC 33.8 33.0 - 36.0 G/DL 02/28/2025 3:45 PM CDT [facility] RDW 11.7 11.5 - 14.5 % 02/28/2025 3:45 PM CDT -[facility] PLT 254 150 - 350 x10'3/uL 02/28/2025 3:45 PM CDT -[facility] MPV 9.2 7.4 - 10.4 FL 02/28/2025 3:45 PM CDT [facility] DIFFERENTIAL TYPE AUTOMATED DIFFERENTIAL 02/28/2025 3:45 PM CDT [facility] NEUTROPHILS % 46.0 % 02/28/2025 3:45 PM CDT [facility] LYMPHOCYTES % 45.1 % 02/28/2025 3:45 PM CDT [facility] MONOCYTES % 6.5 % 02/28/2025 3:45 PM CDT [facility] EOSINOPHILS % 1.9 % 02/28/2025 3:45 PM CDT [facility] BASOPHILS % 0.3 % 02/28/2025 3:45 PM CDT [facility] IMMATURE GRANS % 0.2 % 02/28/2025 3:45 PM CDT -[facility] ABS. NEUTROPHILS 2.68 1.60 - 8.30 x10'3/uL 02/28/2025 3:45 PM CDT -[facility] ABS. LYMPHOCYTES 2.63 0.80 - 4.70 x10'3/uL 02/28/2025 3:45 PM CDT [facility] ABS. MONOCYTES 0.38 0.00 - 1.50 x10'3/uL 02/28/2025 3:45 PM CDT [facility] ABS. EOSINOPHILS 0.11 0.00 - 0.40 x10'3/uL 02/28/2025 3:45 PM CDT [facility] ABS. BASOPHILS 0.02 0.00 - 0.20 x10'3/uL 02/28/2025 3:45 PM CDT [facility] ABS. IMMATURE GRANULOCYTES 0.01 0.00 - 0.03 x10'3/uL 02/28/2025 3:45 PM CDT [facility] 02/28/2025 8:59 AM CDT Maria G [facility] Final Result Performing Organization Address City/[facility]/ZIP Co de Phone Number [facility] [address] [place] [address], [place] [phone] * VITAMIN D, 25 OH (02/28/2025 8:59 AM CDT) VITAMIN D 25 HYDROXY TOTAL S/P/B 48.5 30 - 100 NG/ML 02/28/2025 4:24 PM CDT [facility] Comment: DEFICIENT <20 INSUFFICIENT 20-30 SUFFICIENT 30-100 02/28/2025 8:59 AM CDT Maria G Kuhn [facility] Final Result Performing Organization Address [facility]/ZIP Co de Phone Number [facility] [address] [place] [address], [place] [phone] * AMYLASE (02/28/2025 8:59 AM CDT) AMYLASE S/P/B 74 25 - 115 UNITS/L 02/28/2025 9:20 PM CDT [facility] 02/28/2025 8:59 AM CDT Maria G Kuhn [facility] Final Result [facility] [address] [place] [address], [phone] * (ABNORMAL) LIPASE (02/28/2025 8:59 AM CDT) LIPASE 89(H) 16 - 77 UNITS/L 02/28/2025 3:59 PM CDT [facility] [place] Comment:NEW REFERENCE RANGE 02/28/2025 8:59 AM CDT Maria G Kuhn [facility] Final Result [facility] [address] [place] [address], * Cytopath Cerv/Vag Thin Layer (09/04/2020 12:00 AM CDT) COPATH REPORT [address] [phone] Department of Pathology Pathology Report Gynecological Cytology Report Patient Name: KARINA MUNIZ : 1995 (Age: 25) Location: [facility] Gender: F Collected Date: 09/04/2020 Med Rec #: [id number] Date Received: 09/08/2020 Date Reported: 09/14/2020 Provider: DEWAYNE HUITRON DO Final Cytologic Diagnosis Satisfactory for evaluation. Endocervical component present. Negative for Intraepithelial Lesion or Malignancy. High-risk HPV mRNA E6/E7 by Aptima assay (performed at [facility]) is reported as NOT DETECTED (see separate report for details). Electronically Signed Out By Sudhir Bashir Source of Specimen(s) Cervical/Endocervi isabell - Thin Prep Clinical History Screening, last Pap not provided. Z12.4 Date of Last Menstrual Period: June 2020 Billing Fee Code(s): A: [address] [facility] ([facility] 09/04/2020 09/08/2020 8:3 9 AM CDT Comment:CERVICAL/ENDOCERVICA L - THIN PREP us Dewayne Huitron DO PATHOLOGY/CYTOLOGY ORDERABLES Final Result [facility] [address] [place] [address], [place] [phone] from Last 3 Months or Most Recently Relevant to Health Maintenance Insurance [employer] Advance Directives * Full Code (Latest Code Status on File) Date Activated Date Inactivated Comments 07/06/2022 7:04 AM 07/08/2022 7:57 PM Care Teams Parachutist/Combatant Diver Qualified Relationship Specialty Start Date End Date Maria G Kuhn APNP [address] [place] [address] PCP - General NURSE PRACTITIONER 03/02/23
--- OUTSIDE RECORDS SUMMARY | 2025-03-26 13:10 | XMS_ITS | Encounter Summary ---
Author Organization [facility] Address [facility] [place] [address] Care Team Providers Care Leisure Travel Agent Name Role Phone Maria G Kuhn Primary Care Provider [phone] Encounter Details Date Type Department Care Team (Late st Contact Info) Description 05/09/2024 Fanmindert Message Enc [facility] - [place] [address] [place] [address] Maria G Kuhn APNP [address] [place] [address] 437 Yearly Visit Reminder Social History Tobacco Use [...] AM SHAZIAT Brooke Pérez RN Active * Because of a physical, [...] Depression Total Score: 1 11/30/19 7:53 AM 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
--- OUTSIDE RECORDS SUMMARY | 2025-03-26 13:10 | XMS_ITS | Encounter Summary ---
Author Organization [facility] Address [facility] [place] [address] Care Team Providers Care Car Mover Name Role Phone Tangela Baker MD Primary Care Provider Unavailable Adan Huitron DO Primary Care Provider [phone] Adan Huitron DO Primary Care Provider + Maria G Kuhn Primary Care Provider + Connie Raza DO Primary Care Provider [phone] Adan Huitron DO Unavailable [phone] PoiroMaira G dahl Unavailable [phone] PoiroMaria G dahl Primary Care Provider + Encounter Details Date Type Department Care Team (Late st Contact Info) Description 09/30/2017 [place] [address] , Generic ConversionMD Social History Tobacco Use [...] documented as of this encounter Care Teams Car Mover Relationship Specialty Start Date End Date Tangela Baker MD PCP - General 01/01/16 Adan Huitron DO PCP - General FAMILY PRACTICE 11/28/19 07/05/22 Adan Huitron DO PCP - General FAMILY PRACTICE 07/06/22 10/25/22 Maria G Kuhn APNP [address] [place] [address] PCP - General NURSE PRACTITIONER 10/26/22 11/28/22 Connie Raza DO [address] [place], [place] [address] PCP - General FAMILY PRACTICE 11/29/22 03/01/23 Maria G Kuhn APNP [address], [place] [address] PCP - General NURSE PRACTITIONER 03/02/23 Adan Huitron DO FAMILY PRACTICE 07/06/22 11/15/22 Maria G Kuhn APNP [address] [place] [address] NURSE PRACTITIONER 03/02/23 03/02/23 documented as of this encounter
--- OUTSIDE RECORDS SUMMARY | 2025-03-26 13:10 | XMS_ITS | Clinical Summary ---
Author Organization [facility] [address] [place] Address [address] [place] [id number] Care Team Providers Care Host And Hostess Name Role Phone Unknown, Notinfile Primary Care Provider Unavail able Adan Huitron DO Unavailable Allergies Active Allergy Reactions Criticality Noted Date Comments Benzoyl Peroxide-Aloe Vera Hives Medium Benzoyl Peroxide-Sulfur Itching,Rash Medium 11/19/2021 Mold Other [...] F/U from [facility] Primary OB: Lalita Claudio [phone] [] or Medicare Insurance [x] Dating Criteria: [...] [] MOC: [] Method of feeding: [] Fire Extinguisher Technician (specifically which provider): [] PP Depression Discussed: [] PP visits scheduled: Vaccines [x] Flu Shot (Jul-Oct): received 08/27/24 [] COVID vaccine: [] Tdap (27-36wks): [] RSV vaccine (32-36wks): [] PP HPV vaccine counseling (<=26 yo): Threatened labor, third trimester 2024 Acute non-recurrent maxillary sinusitis 11/19/20 Assessment & Plan (11/19/2021 8:28 AM DISHROOM ATTENDANT): -amoxicillin 500 b.i.d. -continue the loratadine -continue to Tylenol -drink plenty of fluids -notify your provider if you do not improve Arthralgia of elbow 03/18/2013 Arthralgia of shoulder 12/06/2012 Estimated Date of Delivery Comme nts Yes 02/19/2025 Based on Other B asis, patient reported based on LMP=1st trimester ultrasound (~11w) Encounters Date Type Department Care Team Description 01/20/2025 Orders Only [address] [phone] Keay Reglaado MD Intrahepatic cholestasis of in third trimester (Primary Dx) 01/17/2025 3:40 PM DISHROOM ATTENDANT Lab [facility] [address] [place] [address] Intrahepatic cholestasis of in third trimester 01/14/2025 1:00 PM DISHROOM ATTENDANT Ancillary Procedure [address] 5[address] [place] [address] 01/13/2025 6:59 AM DISHROOM ATTENDANT Anesthesia Event [address] [address] Argentina Rodriguez MD 01/13/2025 - 01/14/2025 2:37 PM DISHROOM ATTENDANT Hospital Encounter [facility] [address] [place] [address] Latosha Lea MD Bligard, Keya Purvis MD Intrahepatic cholestasis of in third trimester (Primary Dx) Discharge Disposition: Discharge to home or self care 01/12/2025 2:16 PM DISHROOM ATTENDANT - 01/12/2025 11:59 PM DISHROOM ATTENDANT Hospital Encounter [facility] B[facility] [phone] Emergency, Room R Discharge Disposition: Discharge to [...] week 01/13/2025 How often do you attend [facility] or denominational services? 1 to 4 times per year 01/13/2025 Do you belong to any clubs o r organizations such as mandaeism groups, unions, fraternal or athletic groups, or [...] any time in the past 12 m [facility], were you homeless or living in a nursing home (including now)? No 01/13/2025 Personal Safety Answer [...] on file Legal Sex Female 6:53 AM DISHROOM ATTENDANT Gender Identity Not on file Sexual [...] Livin g 8 9 BIBI S,BOY KARINA Rhodesn on D Nevaeh rdavi s CNM Complications:None Delivery Location:[facility] ([facility]) Current Summary Episode Dates Number of Fetuses Estimated Date of Delivery 01/13/2025 - Present (03/26/2025) 02/19/2025 (set by Berenice Coombs MD on 01/13/2025 based on Other Basis) Dating Summary Based On LONI GA Diff Other Basis 02/19/2025 Working Comment:patient reported bas ed on LMP=1st trimester ultrasound (~11w) Last Menstrual Period on 05/15/2024 02/19/2025 Same Ultrasound on 07/22/2024 02/22/2025 -3d GA:9w2d Ultrasound on 10/09/2024 02/16/2025 +3d GA:21w3d Vitals Pregravid Weight Height TWG (As of 03/26/2025) Pregrav id BMI 165.1 cm (5' 5 ) Date GA Fund Present FHR Mvmt BP Weight Edema Alb Glu Ket Dil/ Eff/Sta 5 34w6d Inpatient data not displayed here. See encounter summary. Notes Progress Notes - Abstract - 01/21/2025 - GA:35w6d 01/21/2025 - 35w6d - Pretty Cervantes RMA Current OB records are under media tab. 01/13 admission records are in [facility]. ROOM ATTENDANT Progress Notes - Hospital En counter - 01/14/2025 - GA:34w6d 01/14/2025 - 34w6d - Berenice Coombs MD R2 Update To bedside for contractions. Reporting painful contractions every 2-3 minutes. Denies LOF or VB. SVE stable 50/-2. Recommended PO hydration. Patient okay with plan. Berenice Coombs MD PGY-2 Obstetrics & Gynecology ROOM ATTENDANT 01/14/2025 - 34w6d - Sharon Gomes MD Antepartum Progress Note [...] on monitor this am, reassuring, few variables [place]: irregular contractions Physical Exam General: No acute distress. Cardiovascular: Normal rate, regular rhythm Lungs: Non-labored. Abdomen: Soft, non-tender, gravid. Extremities: Warm and well-perfused. Pelvic: SVE 50/-2, exam by Dr. Coombs 20 min prior to my evaluation Neurologic: Alert and oriented x4, non-focal Lab Review: No results found for this or any previous visit (from the past 24 hours). ASSESSMENT/PLAN Karina Fallon is a 29 y.o. at 34w6d transferred for tPTL. #tPTL - presented w/ contractions q2-5 - SVE 3 cm > 4/70/-2 at OSH - admit SVE 50/-2 - [...] Keya Regalado MD at 01/14/2025 2:49 PM DISHROOM ATTENDANT ROOM ATTENDANT ROOM ATTENDANT Associated attestation - Keya Regalado MD - 01/14/2025 2:49 PM DISHROOM ATTENDANT MFM Attending Attestation I have seen and [...] Regalado MD 01/14/2025 01/13/2025 - 34w5d - Laron obregon, Brenda Narvaez MD Transfusion Medicine Blood Bank Note Patient [...] future transfusions. Contact Information: Please contact the [facility] Transfusion Medicine Service at (option 1) with any questions. This report has been prepared by: Brenda Powell MD Cosigned by Gissell Patterson DO at 01/14/2025 2:20 PM DISHROOM ATTENDANT ROOM ATTENDANT ROOM ATTENDANT Associated attestation - Gissell Patterson DO - 01/14/2025 2:20 PM DISHROOM ATTENDANT Attestation: I have personally reviewed the antibody [...] % Max: 98 % FHR: cEFM reactive [place]: irregular contractions Physical Exam General: No acute [...] g (67%), vtx, DVP 3.13 cm -BMZ^01/14 @193 -Mag not indicated -Peds c/s deferred -cEFM [...] Keya Regalado MD at 01/13/2025 11:02 AM DISHROOM ATTENDANT ROOM ATTENDANT ROOM ATTENDANT Associated attestation - Keya Regalado MD - 01/13/2025 11:02 AM DISHROOM ATTENDANT MFM Attending Attestation I have seen and examined the patient, Karina Fallon, on 01/13/2025 and I am in agreement with the plan as documented in the resident/fellow/TEODORO's note. Keya Regalado MD 01/13/2025 Last Filed Vital Signs Vital Sign Reading Time Taken Comments Blood Pressure 123/67 01/14/2025 11:50 AM DISHROOM ATTENDANT Pulse 90 01/14/2025 11:50 AM DISHROOM ATTENDANT Temperature 36.7 C (98.1 F) 01/14/2025 11:50 AM DISHROOM ATTENDANT Respiratory Rate 16 01/14/2025 11:50 AM DISHROOM ATTENDANT Oxygen Saturation 99% 01/14/2025 11:50 AM DISHROOM ATTENDANT Inhaled Oxygen Concentration - - Weight 77.6 kg (171 lb) 01/13/2025 1:35 AM DISHROOM ATTENDANT Height 165.1 cm (5' 5 ) 01/13/2025 12:07 AM DISHROOM ATTENDANT Body Mass Index 28.46 01/13/2025 12:07 AM DISHROOM ATTENDANT Plan of Treatment Health Maintenance Due Date [...] Diagnosis Comments EGFR Routine 01/17/2025 1:57 PM DISHROOM ATTENDANT Intrahepatic cholestasis of in third trimester COMPREHENSIVE METABOLIC PANEL Routine 01/17/2025 1:57 PM DISHROOM ATTENDANT Intrahepatic cholestasis of in third trimester BILE ACIDS, TOTAL Routine 01/17/2025 1:5 7 PM DISHROOM ATTENDANT Intrahepatic cholestasis of in third trimester US OB 14 WEEKS OR OVER IP Routine 1:32 PM DISHROOM ATTENDANT EGFR Timed 01/14/2025 8:23 AM DISHROOM ATTENDANT COMPREHENSIVE METABOLIC PANEL Timed 01/14/2025 8:23 AM DISHROOM ATTENDANT ANTIBODY IDENTIFICATION Routine 01/13/2025 2:54 AM DISHROOM ATTENDANT URINE CULTURE Routine 01/13/2025 2:07 AM DISHROOM ATTENDANT B CHECK SAMPLE STAT 01/13/2025 2:04 AM DISHROOM ATTENDANT TRICHOMONAS VAGINALIS PCR Routine 01/13/2025 1:32 AM DISHROOM ATTENDANT N. GONORRHOEAE/C. TRACHOMATIS AMPLIFICATION Routine 01/13/2025 1:32 AM DISHROOM ATTENDANT GROUP B STREPTOCOCCUS CULTURE Routine 01/13/2025 1:32 AM DISHROOM ATTENDANT EGFR STAT 01/13/2025 1:29 AM DISHROOM ATTENDANT BILE ACIDS, TOTAL Timed 01/13/2025 1:2 9 AM DISHROOM ATTENDANT COMPREHENSIVE METABOLIC PANEL STAT 01/13/2025 1:29 AM DISHROOM ATTENDANT TYPE AND SCREEN Timed 01/13/2025 1:29 AM DISHROOM ATTENDANT CBC WITHOUT DIFFERENTIAL Routine 01/13/2025 1:29 AM DISHROOM ATTENDANT RPR Routine 01/13/2025 1:29 AM DISHROOM ATTENDANT HIV 1/2 ANTIBODY PLUS P24 ANTIGEN Routine 01/13/2025 1:29 AM DISHROOM ATTENDANT from Last 3 Months Results * eGFR (01/17/2025 1:57 PM DISHROOM ATTENDANT) eGFR >90 >=60 mL/min/1. 73 m2 Comment: [...] last reviewed 2021. Blood 01/17/2025 1:57 PM DISHROOM ATTENDANT 01/17/2025 2:42 PM DISHROOM ATTENDANT us Keya Regalado MD LAB BLOOD ORDERAB LES Final Result [facility] Department [place] [address] * (ABNORMAL) Bile acids (01/17/2025 1:57 PM DISHROOM ATTENDANT) Bile acids 55(H) <=10 mcmol/L [facility] ref Lab Comment: Test Performed by: [address] [address] Systems Coordinator: Mayuri Stone Ph.D.; CLIA# [id number] Blood 01/17/2025 1:57 PM DISHROOM ATTENDANT 01/17/2025 4:11 PM DISHROOM ATTENDANT Narrative [facility] - 01/19/2025 1:02 PM DISHROOM ATTENDANT sent 1.0 ml serum Keya Regalado MD LAB BLOOD ORDERAB LES Final Result [facility] Department [place] [address] Chana ref Lab * (ABNORMAL) Comprehensive metabolic panel (01/17/2025 1:57 PM DISHROOM ATTENDANT) Sodium 138 135 - 145 mmol/L Potassium, pl 3.8 3.3 - 4.9 mmol/L [facility] Chloride 103 97 - 110 mmol/L [facility] CO2 27 22 - 32 mmol/L [facility] Anion gap 8 2 - 15 mmol/L [facility] BUN 7 6 - 25 mg/dL [facility] Creatinine 0.53(L) 0.60 - 1.10 mg/dL [facility] Glucose 91 70 - 199 mg/dL [facility] Comment: Interpretive Data Fasting glucose >/= 126 [...] 2022. Calcium 9.1 8.5 - 10.3 mg/dL [facility] Bilirubin, total 0.9 0.1 - 1.2 mg/dL [facility] Protein, pl 7.2 6.5 - 8.5 g/dL [facility] Albumin 3.5 3.5 - 5.0 g/dL [facility] Alk phos 309(H) 40 - 130 Units/L [facility] ALT 105(H) 7 - 45 Units/L [facility] AST 58(H) 10 - 45 Units/L [facility] Blood 01/17/2025 1:57 PM DISHROOM ATTENDANT 01/17/2025 2:39 PM DISHROOM ATTENDANT us Keya Regalado MD LAB BLOOD ORDERAB LES Final Result [facility] [place] [address] * US Ob 14 Weeks Or Over (01/14/2025 1:32 PM DISHROOM ATTENDANT) Pathologist [facility] Fetus# Fetus1 [facility] Estimated Weight 2,817 g&grams [facility] Placenta Details anterior, Previa-no, no placental masses [facility] Presentation Vertex [facility] Anatomical Region Laterality Modality Abdomen N/A Ultrasound 01/14/2025 1:32 PM DISHROOM ATTENDANT Impressions 01/14/2025 3:03 PM DISHROOM ATTENDANT IUP at 34w 6d. 1. Biometric measurements [...] Final Result * eGFR (01/14/2025 8:23 AM DISHROOM ATTENDANT) Pathologist [facility] eGFR >90 >=60 mL/min/1. 73 m2 Comment: [...] last reviewed 2021. Blood 01/14/2025 8:23 AM DISHROOM ATTENDANT 01/14/2025 8:42 AM DISHROOM ATTENDANT Sharon Gomes MD LAB BLOOD ORDERABLES Fi nal Result [facility] Department [place] [address] * (ABNORMAL) Comprehensive metabolic panel (01/14/2025 8:23 AM DISHROOM ATTENDANT) Sodium 138 135 - 145 mmol/L Potassium, pl 3.7 3.3 - 4.9 mmol/L [facility] Chloride 106 97 - 110 mmol/L [facility] CO2 22 22 - 32 mmol/L [facility] Anion gap 10 2 - 15 mmol/L [facility] BUN 5(L) 6 - 25 mg/dL [facility] Creatinine 0.34(L) 0.60 - 1.10 mg/dL [facility] Glucose 172 70 - 199 mg/dL [facility] Comment: Interpretive Data Fasting glucose >/= 126 [...] 2022. Calcium 9.0 8.5 - 10.3 mg/dL [facility] Bilirubin, total 1.2 0.1 - 1.2 mg/dL [facility] Protein, pl 7.2 6.5 - 8.5 g/dL [facility] Albumin 3.6 3.5 - 5.0 g/dL [facility] Alk phos 334(H) 40 - 130 Units/L [facility] ALT 69(H) 7 - 45 Units/L [facility] AST 51(H) 10 - 45 Units/L [facility] Blood 01/14/2025 8:23 AM DISHROOM ATTENDANT 01/14/2025 8:42 AM DISHROOM ATTENDANT Sharon Gomes MD LAB BLOOD ORDERABLES Fi nal Result [facility] [place] [place] [address] * Antibody identification (01/13/2025 2:54 AM DISHROOM ATTENDANT) Antibody ID 1 Passive Anti-D Blood 01/13/2025 2:54 AM DISHROOM ATTENDANT 01/13/2025 2:54 AM DISHROOM ATTENDANT Latosha Lea MD LAB BLOOD BANK TEST ORDERA BLES Final Result [facility] [place] [address] * Urine culture Urine, clean voided (01/13/2025 2:07 AM DISHROOM ATTENDANT) Report Final Report: Less than 100,000 colonies/mL (clinically insignificant growth based on current clinical standards) Organism (CLINICALLY INSIGNIFICANT GROWTH [facility] Urine, clean voided 01/13/2025 2:07 AM DISHROOM ATTENDANT 01/13/2025 2:26 AM DISHROOM ATTENDANT Narrative [facility] - 01/14/2025 7:17 AM DISHROOM ATTENDANT Indications for Culture:-> patient Testing performed by [facility] Microbiology Laboratory ([phone]) Latosha Lea MD LAB MICROBIOLOGY - GENERAL ORDERABLES Final Result Performing Organization Address [facility] Co de Phone Number [facility] Department [place] [address] * Check Sample (01/13/2025 2:04 AM DISHROOM ATTENDANT) ABO Rh B Negative [facility] OTHER 01/13/2025 2:04 AM DISHROOM ATTENDANT 01/13/2025 2:14 AM DISHROOM ATTENDANT Latosha Lea MD LAB BLOOD ORDERABLES Final Result Performing Organization Address [facility] de Phone Number [facility] Department [place] [address] [facility] * N. gonorrhoeae/C. trachomatis Amplification Vaginal (01/13/2025 1:32 AM DISHROOM ATTENDANT) Pathologist [facility] C. trachomatis Not Detected Not Detected [facility] N. gonorrhoeae Not Detected Not Detected [facility] Comment: Interpretive Data This assay detects Chlamydia trachomatis and Neisseria gonorrhoeae by nucleic acid amplification testing (NAAT). This assay has been cleared by the [place] Food and Drug administration. The performance characteristics of this test have been verified by the [facility] Molecular Infectious Disease laboratory. The performance characteristics of this test have not been evaluated in individuals less than 14 years of age. Current Interpretive Data last revised 2023. Vaginal (None) 01/13/2025 1: 32 AM DISHROOM ATTENDANT 01/13/2025 1:50 AM DISHROOM ATTENDANT Latosha Lea MD LAB MICROBIOLOGY - GENERAL ORDERABLES Final Result Performing Organization Address [facility] [place] [address] [facility] * Trichomonas vaginalis PCR Vaginal (01/13/2025 1:32 AM DISHROOM ATTENDANT) Trichomonas DNA Not Detected Not Detected [facility] Comment: Interpretive Data This assay detects Trichomonas vaginalis by nucleic acid amplification testing (NAAT). This assay has been cleared by the [place] Food and Drug administration. The performance characteristics of this test have been verified by the [facility] Molecular Infectious Disease laboratory. Excess blood in specimens may be inhibitory and result in false negative results. The performance of this test has not been evaluated in women or individuals less than 18 years of age. Current Interpretive Data last revised 2023. Vaginal 01/13/2025 1:32 AM DISHROOM ATTENDANT 01/13/2025 1:50 AM DISHROOM ATTENDANT Latosha Lea MD LAB MICROBIOLOGY - GENERAL ORDERABLES Final Result Performing Organization Address [facility] [place] [address] [facility] * Group B streptococcal culture Vaginal/Rectal (01/13/2025 1:32 AM DISHROOM ATTENDANT) Report Final Report: Negative Vaginal/Rectal 01/13/2025 1: 32 AM DISHROOM ATTENDANT 01/13/2025 2:29 AM DISHROOM ATTENDANT [facility] - 01/15/2025 8:41 PM DISHROOM ATTENDANT Testing performed by [facility]biology [facility] ([phone]). Latosha Lea MD LAB MICROBIOLOGY - GENERAL ORDERABLES Final Result Performing Organization Address City/[facility] [place] [address] * eGFR (01/13/2025 1:29 AM DISHROOM ATTENDANT) eGFR >90 >=60 mL/min/1. 73 m2 Comment: [...] last reviewed 2021. Blood 01/13/2025 1:29 AM DISHROOM ATTENDANT 01/13/2025 1:41 AM DISHROOM ATTENDANT Latosha Lea MD LAB BLOOD ORDERABLES Final Result [facility] Department [place] [address] * HIV 1/2 Antibody plus p24 Antigen Blood (01/13/2025 1:29 AM DISHROOM ATTENDANT) HIV 1/2 ab + p24 ag Nonreactive Nonreactive Comment:Nonreactive for HIV- 1 antigen and HIV-1/HIV-2 antibodies. No laboratory evidence of HIV infection. If acute HIV infection is suspected, consider testing for HIV-1 RNA. Current interpretive data was last revised on 22. Blood 01/13/2025 1:29 AM DISHROOM ATTENDANT 01/13/2025 1:41 AM DISHROOM ATTENDANT Latosha Lea MD LAB MICROBIOLOGY - GENERAL ORDERABLES Final Result Performing Organization Address [facility] [place] [address] * (ABNORMAL) Bile acids (01/13/2025 1:29 AM DISHROOM ATTENDANT) Pathologist [facility] Bile acids 22(H) <=10 mcmol/L [facility] ref Lab Comment: Test Performed by: [place] [address] Systems Coordinator: Mayuri Stone Ph.D.; CLIA# [id number] Blood 01/13/2025 1:29 AM DISHROOM ATTENDANT 01/13/2025 4:41 AM DISHROOM ATTENDANT Latosha Lea MD LAB BLOOD ORDERABLES Final Result Performing Organization Address [facility] [place] [address] [facility] * RPR Blood (01/13/2025 1:29 AM DISHROOM ATTENDANT) Pathologist [facility] RPR Nonreactive Nonreactive Blood 01/13/2025 1:29 AM DISHROOM ATTENDANT 01/13/2025 1:41 AM DISHROOM ATTENDANT Latosha Lea MD LAB MICROBIOLOGY - GENERAL ORDERABLES Final Result Performing Organization Address [facility] de Phone Number [facility] [place] [address] * (ABNORMAL) CBC without differential (01/13/2025 1:29 AM DISHROOM ATTENDANT) [facility] WBC 13.2(H) 3.8 - 9.9 K/cumm Hgb 10.9(L) 11.9 - 15.5 g/dL [facility] Hct 32.5(L) 35.6 - 45.5 % [facility] Plt 236 150 - 400 K/cumm [facility] MPV 9.1 9.1 - 12.3 fL [facility] RBC 3.43(L) 3.90 - 5.20 M/cumm [facility] MCV 94.8 81.3 - 96.4 fL [facility] MCH 31.8 27.1 - 33.3 pg [facility] MCHC 33.5 32.3 - 35.7 g/dL [facility] RDW CV 13.5 11.1 - 14.9 % [facility] RDW SD 45.8 35.7 - 48.1 fL [facility] NRBC abs 0.00 0.00 - 0.01 K/cumm [facility] Blood 01/13/2025 1:29 AM DISHROOM ATTENDANT 01/13/2025 1:41 AM DISHROOM ATTENDANT Latosha Lea MD LAB BLOOD ORDERABLES Final Result Performing Organization Address City/[facility] Co de Phone Number [facility] Department [place] [address] * (ABNORMAL) Type and screen (01/13/2025 1:29 AM DISHROOM ATTENDANT) Pathologist [facility] Raven, indirect Positive(A) ABO Rh B Negative [facility] Blood 01/13/2025 1:29 AM DISHROOM ATTENDANT 01/13/2025 1:48 AM DISHROOM ATTENDANT Narrative [facility] - 01/13/2025 2:54 AM DISHROOM ATTENDANT Has the patient had Daratumumab or Isatuximab in the past 6 months?->Unknown Latosha Lea MD LAB BLOOD BANK TEST ORDERA BLES Final Result [facility] [place] [place] [address] * (ABNORMAL) Comprehensive metabolic panel (01/13/2025 1:29 AM DISHROOM ATTENDANT) Sodium 139 135 - 145 mmol/L Potassium, pl 4.0 3.3 - 4.9 mmol/L [facility] Chloride 108 97 - 110 mmol/L [facility] CO2 22 22 - 32 mmol/L [facility] Anion gap 9 2 - 15 mmol/L [facility] BUN 5(L) 6 - 25 mg/dL [facility] Creatinine 0.36(L) 0.60 - 1.10 mg/dL [facility] Glucose 117 70 - 199 mg/dL [facility] Comment: Interpretive Data Fasting glucose >/= 126 [...] 2022. Calcium 8.9 8.5 - 10.3 mg/dL [facility] Bilirubin, total 1.4(H) 0.1 - 1.2 mg/dL [facility] Protein, pl 7.1 6.5 - 8.5 g/dL [facility] Albumin 3.4(L) 3.5 - 5.0 g/dL [facility] Alk phos 355(H) 40 - 130 Units/L [facility] ALT 55(H) 7 - 45 Units/L [facility] AST 50(H) 10 - 45 Units/L [facility] Blood 01/13/2025 1:29 AM DISHROOM ATTENDANT 01/13/2025 1:41 AM DISHROOM ATTENDANT us Latosha Lea MD LAB BLOOD ORDERABLES Final Result [facility] [place] [address] from Last 3 Months Insurance [id number] [facility] [employer] OPEN ACCESS Advance Directives For more information, please contact: [phone] * Full Code (Latest Code Status on File) Date Activated Date Inactivated Comments 01/13/2025 12:17 AM 01/14/2025 6:51 PM Care Teams Host And Hostess Relationship Specialty Start Date End Date Unknown, Notinfile PCP - General 04/24/24 Adan Huitron DO Family Medicine 04/24/24
--- OUTSIDE RECORDS SUMMARY | 2025-03-26 13:10 | XMS_ITS | Encounter Summary ---
Author Organization [facility] Address [address] [place] [address] Care Team Providers Care Ice Cream Man Name Role Phone Maria G Kuhn Primary Care Provider [phone] Encounter Details Date Type Department Care Team (Late st Contact Info) Description 02/27/2025 Same Day Servest Message Enc [facility] Family and Sports Medicine - [place] [address] [place] [address] Maria G Kuhn APNP [address] [place] [address] Yearly Health Maintenance Visit Due Social History Tobacco Use Types Packs/Day Years [...] Author Status No 07/06/2022 8:39 AM CDT Brooke Pérez RN Active * Do you have difficulty dressing or bathing? Answer Date of Assessment Author Status No 07/06/2022 8:39 AM CDT Brooke Pérez RN Active * Because of a physical, mental, or emotional condition, do you have difficulty doing errands alone such as visiting a doctor's office or shopping? Answer Date of Assessment Author Status No 07/06/2022 8:39 AM CDT Brooke Pérez RN Active * Over the past 2 weeks, how often have you been bothered by any of the following problems? Question Answer Date of Assessment Author Status Little interest or pleasure in doing things Not at all 02/28/2025 9:01 AM CDT Jessika Feliciano, BACTERIOLOGY TEACHER Active Feeling down, depressed, or hopeless Not at all 02/28/2025 9:01 AM CDT Aileen Feliciano, BACTERIOLOGY TEACHER Active Patient Health Questionnaire-2 Score 0 02/28/2025 9:01 AM CDT Tanna Feliciano, BACTERIOLOGY TEACHER Active * Question Answer Date of Assessment Author Status Feeling tired or having little energy Several days 02/28/2025 9:01 AM CDT Aileen Feliciano, BACTERIOLOGY TEACHER Active * If you checked off any problems on this questionnaire so far, Question Answer Date of Assessment Author Status How difficult have these problems made it for you to do your work, take care of things at home, or get along with other people? Not difficult at all 02/28/2025 9:01 AM CDT Aileen Feliciano, BACTERIOLOGY TEACHER Active * Over the last 2 weeks, how often have you been bothered by any of the following problems? Question Answer Date of Assessment Author Status Feeling nervous, anxious, or on edge 0 02/28/2025 9:01 AM CDT Forlynne-Monika Jessika mary A, BACTERIOLOGY TEACHER Active Not being able to stop or control worrying 0 02/28/2025 9:01 AM CDT Forbeck-Buhr Jessika mary A, BACTERIOLOGY TEACHER Active Worrying too much about different things 0 02/28/2025 9:01 AM CDT Forbeck-Bu, Jessika mary A, BACTERIOLOGY TEACHER Active Trouble relaxing 0 02/28/2025 9:01 AM CDT F gwyneck-Monika Aileen A, BACTERIOLOGY TEACHER Active Being so restless that it is hard to sit still 0 02/28/2025 9:01 AM CDT Forbeck-Buhr Je ssica A, BACTERIOLOGY TEACHER Active Becoming easily annoyed or irritable 0 02/28/2025 9:01 AM CDT Forlynne-Buhr Jessika mary A, BACTERIOLOGY TEACHER Active Feeling afraid as if something awful might happen 0 02/28/2025 9:01 AM CDT Forbeck-Bu, Jessika mary A, BACTERIOLOGY TEACHER Active BLADIMIR-7 Total Score 0 02/28/2025 9:01 AM CDT ForRicky Aileen A, BACTERIOLOGY TEACHER Active documented as of this encounter Mental Status * Because of a physical, mental, or emotional condition, do you have serious difficulty concentrating, remembering, or making decisions? Answer Entry Date Author Status No 07/06/2022 8:39 AM CDT Brooke Pérez RN Active documented in this encounter Plan of Treatment Not on file documented as of this encounter Visit Diagnoses Not on filedocumented in this encounter Additional Health Concerns Assessment Noted Time PHQ-9 Depression Total Score: 1 11/30/19 7:53 AM BONE PLANT SUPERVISOR documented as of this encounter Care Teams Ice Cream Man Relationship Specialty Start Date End Date Maria G Kuhn APNP [address] [place] [address] PCP - General NURSE PRACTITIONER 03/02/23 documented as of this encounter
--- OUTSIDE RECORDS SUMMARY | 2025-03-26 13:10 | XMS_ITS | Encounter Summary ---
Author Organization [facility] Address [address] [place] [address] Care Team Providers Care Food And Beverage Cashier Name Role Phone Connie Raza DO Primary Care Provider [phone] Maria G Kuhn Unavailable [phone] Maria G Kuhn Primary Care Provider [phone] Encounter Details Date Type Department Care Team (Late st Contact Info) Description 01/04/[address] 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
--- OUTSIDE RECORDS SUMMARY | 2025-03-26 13:10 | XMS_ITS | Data Portability ---
Author Organization [facility], [facility] Address [address] [place] [address] Assessment No assessment recorded. Plan of Treatment Reminders Order Date Submit Date Provider Last Modified By Organization Details Last Modified Time Details Appointments None recorded . Lab None recorded . Referral None recorded . Procedures None recorded . Surgeries None recorded . Imaging None recorded . Medication Orders Slynd 4 mg (28) tablet 022 09/01/20 [id number], [address], [place], [id number], 15:55:21 Patient TargetsNo targets recorded. Patient Instructions Encounter Date Encounter Id Patient Instructions Last Modified By Organization Details Last Modified Time 07/20/2022 [id number] Care at Home With Your Baby: Care Instructions swallerdavis Not available 07/20/2022 22:06:23 edinburgh depression scale* ricenogle Not available 08/02/2022 17:38:16 control after counseling swallerdavis Not available 07/20/2022 22:06:23 09/01/2022 [id number] Care at Home With Your Baby: Care [...] GROUP B CULTU RE Micro Numbe r: [id number] Test Statu s: Final Speci men Sourc e: Vagin al/an orect al Speci men Quali ty: Adequ ate Resul t: No group B Strep tococ cus isola daphne Note per CDC guide lines optim al recov jasson is achie javon by swabb ing both the lower vagin a and rectu m (thro ugh the anal sphin cter) . Not Available [facility] [address] [place], [address], 06/12/2022 10:06:37 07/06/20 22 07/06/2022 UA REFLE X TO MICRO specimen type URINE CLEAN CATCH Not Available [facility] (Lab) [place], [address], 07/06/2022 09:04:38 07/06/20 22 07/06/2022 UA REFLE X TO MICRO color YELLOW Not Available [facility] (Lab) [address] [place], [address], 07/06/2022 09:04:38 07/06/20 22 07/06/2022 UA REFLE X TO MICRO clarity CLEAR Not Available [facility] (Lab) [address] [place], [address], 07/06/2022 09:04:38 07/06/20 22 07/06/2022 UA REFLE X TO MICRO specific gravity 1.016 1.001- 1.030 Not Available [facility] (Lab) [address] [place], [address], 07/06/2022 09:04:38 07/06/20 22 07/06/2022 UA REFLE X TO MICRO pH, urine 6.0 5.0-9. 0 Not Available [facility] (Lab) [place], [address], 07/06/2022 09:04:38 07/06/20 22 07/06/2022 UA REFLE X TO MICRO leukocytes NEGATI VE neg Not Available [facility] (Lab) [address] [place], [address], 07/06/2022 09:04:38 07/06/20 22 07/06/2022 UA REFLE X TO MICRO nitrite NEGATI VE neg Not Available [facility] (Lab) [place], [address], 07/06/2022 09:04:38 07/06/20 22 07/06/2022 UA REFLE X TO MICRO protein NEGATI VE mg/dL <30 Not Available [facility] (Lab) [address] [facility], [place], [address], 07/06/2022 09:04:38 07/06/20 22 07/06/2022 UA REFLE X TO MICRO glucose NORMAL mg/dL norm Not Available [facility] (Lab) [place], [address], 07/06/2022 09:04:38 07/06/20 22 07/06/2022 UA REFLE X TO MICRO ketone NEGATI VE mg/dL neg Not Available [facility] (Lab) [place], [address], 07/06/2022 09:04:38 07/06/20 22 07/06/2022 UA REFLE X TO MICRO urobilinogen NORMAL mg/dL norm Not Available [facility] (Lab) [place], [address], 07/06/2022 09:04:38 07/06/20 22 07/06/2022 UA REFLE X TO MICRO bilirubin NEGATI VE mg/dL neg Not Available [facility] (Lab) [address], [place], [address], 07/06/2022 09:04:38 07/06/20 22 07/06/2022 UA REFLE X TO MICRO blood NEGATI VE neg Not Available [facility] (Lab) [address], [place], [address], 07/06/2022 09:04:38 07/06/20 22 07/06/2022 CBC WITH DIFF WBC 11.9 x10'3 /uL 4.5-11 .0 high Not Available [facility] (Lab) [address], [place], [address], 07/06/2022 09:13:30 07/06/20 22 07/06/2022 CBC WITH DIFF RBC 3.92 x10'6 /uL 4.20-5 .40 low Not Available [facility] (Lab) [address], [place], [address], 07/06/2022 09:13:30 07/06/20 22 07/06/2022 CBC WITH DIFF hemoglobin 12.9 g/dL 12.0-1 6.0 Not Available [facility] (Lab) [address], [place], [address], 07/06/2022 09:13:30 07/06/20 22 07/06/2022 CBC WITH DIFF hematocrit 37.8 % 38.0-4 8.0 low Not Available [facility] (Lab) [address], [place], [address], 07/06/2022 09:13:30 07/06/2007/06/2022 CBC WITH DIFF MCV 96.4 fL 81.0-9 9.0 Not Available [facility] (Lab) [address] [facility], [place], [address], 07/06/2022 09:13:30 07/06/20 22 07/06/2022 CBC WITH DIFF MCH 32.9 pg 27.0-3 1.0 high Not Available [facility] (Lab) [address] [facility], [place], [address], 07/06/2022 09:13:30 07/06/2007/06/2022 CBC WITH DIFF MCHC 34.1 g/dL 32.0-3 6.0 Not Available [facility] (Lab) [place], [address], 07/06/2022 09:13:30 07/06/2007/06/2022 CBC WITH DIFF RDW 12.2 % 11.5-1 4.5 Not Available [facility] (Lab) [address] [facility], [place], [address], 07/06/2022 09:13:30 07/06/20 22 07/06/2022 CBC WITH DIFF platelet count 258 x10'3 /uL 130-40 0 Not Available [facility] (Lab) [address] [facility], [place], [address], 07/06/2022 09:13:30 07/06/2007/06/2022 CBC WITH DIFF MPV 9.5 fL 9.3-12 .2 Not Available [facility] (Lab) [place], [address], 07/06/2022 09:13:30 08/10/20 22 07/06/2022 CBC WITH DIFF diff type AUTOMA DAPHNE DIFFER ENTIAL Not Available [facility] (Lab) [address], [place], [address], 07/06/2022 09:13:30 07/06/20 22 07/06/2022 CBC WITH DIFF neutrophils 73.5 % Not Available [facility] (Lab) [address] [facility], [place], [address], 07/06/2022 09:13:30 07/06/20 22 07/06/2022 CBC WITH DIFF lymphocytes 19.2 % Not Available [facility] (Lab) [address] [facility], [place], [address], 07/06/2022 09:13:30 07/06/20 22 07/06/2022 CBC WITH DIFF monocytes 5.8 % Not Available [facility] (Lab) [address] [facility], [place], [address], 07/06/2022 09:13:30 07/06/20 22 07/06/2022 CBC WITH DIFF eosinophils 0.7 % Not Available [facility] (Lab) [address], [place], [address], 07/06/2022 09:13:30 07/06/20 22 07/06/2022 CBC WITH DIFF basophils 0.3 % Not Available [facility] (Lab) [address], [place], [address], 07/06/2022 09:13:30 07/06/20 22 07/06/2022 CBC WITH DIFF immature granulocytes 0.5 % Not Available [facility] (Lab) [address], [place], [address], 07/06/2022 09:13:30 07/06/20 22 07/06/2022 CBC WITH DIFF abs. neutrophils 8.79 x10'3 /uL 1.80-7 .70 high Not Available [facility] (Lab) [place], [address], 07/06/2022 09:13:30 07/06/20 22 07/06/2022 CBC WITH DIFF abs. lymphocytes 2.29 x10'3 /uL 1.00-4 .80 Not Available [facility] (Lab) [address] [facility], [place], [address], 07/06/2022 09:13:30 07/06/20 22 07/06/2022 CBC WITH DIFF abs. monocytes 0.69 x10'3 /uL 0.24-0 .86 Not Available [facility] (Lab) [place], [address], 07/06/2022 09:13:30 07/06/20 22 07/06/2022 CBC WITH DIFF abs. eosinophils 0.08 x10'3 /uL 0.04-0 .36 Not Available [facility] (Lab) [address] [facility], [place], [address], 07/06/2022 09:13:30 07/06/20 22 07/06/2022 CBC WITH DIFF abs. basophils 0.03 x10'3 /uL 0.01-0 .08 Not Available [facility] (Lab) [place], [address], 07/06/2022 09:13:30 07/06/2007/06/2022 CBC WITH DIFF abs. immature grans 0.06 x10'3 /uL 0.00-0 .49 Not Available [facility] (Lab) [place], [address], 07/06/2022 09:13:30 07/06/20 22 07/06/2022 DRUGS OF ABUSE PANEL , URINE amphetamines , urine NEGATI VE neg Not Available [facility] (Lab) [address] [facility], [place], [address], 07/06/2022 09:13:52 07/06/20 22 07/06/2022 DRUGS OF ABUSE PANEL , URINE barbituates, urine NEGATI VE neg Not Available [facility] (Lab) [address] [facility], [place], [address], 07/06/2022 09:13:52 07/06/2007/06/2022 DRUGS OF ABUSE PANEL , URINE benzodiazapi roger, urine NEGATI VE neg Not Available [facility] (Lab) [address] [facility], [place], [address], 07/06/2022 09:13:52 07/06/20 22 07/06/2022 DRUGS OF ABUSE PANEL , URINE cannabinoids /THC, urine NEGATI VE neg Not Available [facility] (Lab) [address] [facility], [place], [address], 07/06/2022 09:13:52 07/06/20 22 07/06/2022 DRUGS OF ABUSE PANEL , URINE cocaine, urine NEGATI VE neg Not Available [facility] (Lab) [address] [facility], [place], [address], 07/06/2022 09:13:52 07/06/20 22 07/06/2022 DRUGS OF ABUSE PANEL , URINE methadone, urine NEGATI VE neg Not Available [facility] (Lab) [address] [facility], [place], [address], 07/06/2022 09:13:52 08/10/07/06/2022 DRUGS OF ABUSE PANEL , URINE opiates, urine NEGATI VE neg Not Available [facility] (Lab) [place], [address], 07/06/2022 09:13:52 07/06/20 22 07/06/2022 DRUGS OF [...] Available [facility] (Lab) [place], [address], 07/06/2022 09:13:52 07/06/20 22 07/06/2022 DRUGS OF ABUSE PANEL , URINE creatinine, urine 117.0 mg/dL 28-217 Not Available [facility] (Lab) [place], [address], 07/06/2022 09:13:52 07/06/20 22 07/06/2022 TYPE AND SCREE N ABO/Rh(D) B NEGATI VE Not Available [facility] (Lab) [place], [address], 07/06/2022 11:36:41 07/06/20 22 07/06/2022 TYPE AND SCREE N antibody screen POSITI VE Not Available [facility] (Lab) [place], [address], 07/06/2022 11:36:41 07/06/20 22 07/06/2022 TYPE AND SCREE N xm expiration 2021,2 359 Not Available [facility] (Lab) [address], [place], [address], 07/06/2022 11:36:41 07/06/20 22 07/06/2022 TYPE AND SCREE N antibody id NO ALLOAN TIBODI ES DETECT ED Not Available [facility] (Lab) [address], [place], [address], 07/06/2022 11:36:41 07/06/20 22 07/06/2022 TYPE AND SCREE N comment ANTI- D MOST LIKEL Y DUE TO RECEN T RH IMMUN E GLOBU ERIK INJEC TION. Not Available [facility] (Lab) [address], [place], [address], 07/06/2022 11:36:41 05/18/20 22 05/11/2022 US, obste tric, follo w-up No observ ation record ed. BALDEMAR Not Available 2021 17:49:14 Result Notes None recorded. Problems Name Problem SNOMED Code Status Onset Date Resolution Date Notes Provider Name and Address Organization Details Recorded Time Pregnanc y 63457905 Completed 202109/03/2022 B-/RI/NRx 3/ GBS neg Mariely mathias CNM [address] [facility], [place], [address], [facility] 14:44:36 Pregnanc y 43175215 Completed 2021 B-/RI/NRx 3/ GBS neg MAYUR YadavM [address] [place], [address], [facility] - [facility] IV 2 14:44:34 COVID-19 949495633 Active 1st trimester will need growth Mariely mathias, [place] [address] [place], [address], [facility] - [facility] 2 14:44:34 COVID-19 907755702 Completed 1st trimester will need growth [facility] Rene mathias, [address], [address], [facility] - [facility] IV 2 14:44:34 Blood group B Rh(D) negative 001769403 Completed Rhogam at 28 weeks Mariely mathias, [address], [address], [facility] - [facility] IV 2 14:44:34 Blood group B Rh(D) negative 921972482 Active Rhogam at 28 weeks [place] ShrutiKalpesh mathias, [address], [address], [facility] - [facility] IV 2 14:44:34 Problem Notes None recorded. Procedures Surgical History Date Name Laterality Status Provider Name and Address Organization Details Recorded Time 1 Date of Last Pap Smear completed Natavia [place] - [facility] 01/19/2022 16:46:35 procedure on shoulder completed Cari Joyer [facility] 12/21/2021 16:11:05 Imaging Results Imaging Date Name Status LastModified by Organiz ation Details LastModified Time 05/11/2022 US, obstetric, follow-up completed BALDEMAR Information not available 05/19/2022 17:49:14 Procedure Notes None recorded. Medical Equipment None Reported. Allergies Allergen ID Allergen Name Allergen Category Reaction Reaction Severity Criticality Documentation Date Start Date Code Code System Note Provider Name and Address Organization Details Recorded Time 865756 mold extract environme nt Not available Not available Not available 01/19/2022 95830 8 RxNorm Natavia Aric null, [place] - [facility] IV 16:46:35 No known drug allergies Medications Name Sig [...] Last Updated DateTime 165.1 cm 29.1 kg/m2 09631.6 6475 g 97 [degF] 110 mm[Hg] 60 mm[Hg] Tramea Lima [employer] [facility] - [facility] IV 2 12:50:57 Date Recorded Body height Body mass index (BMI) Systolic blood pressure Diastolic blood pressure Provider Name and Address Organization Details Last Updated DateTime 06/22/2022 165.1 cm 29.1 kg/m2 100 mm[Hg] 64 mm[Hg] Sobeida Phipps [place] - [facility] 06/22/2022 18:13:58 Date Recorded Body weight Provider Name an d Address Organization Details Last Updated DateTime 06/22/2022 16227.05022 g MAYUR [address], [address], [facility] 07/05/2022 09:26:01 Date Recorded Body height Body mass index (BMI) Body temperature Systolic blood pressure Diastolic blood pressure Provider Name and Address Organization Details Last Updated DateTime 06/30/2022 165.1 cm 29.6 kg/m2 97 [degF] 110 mm[Hg] 60 mm[Hg] Tramea Lima [facility] 2 16:37:03 Date Recorded Body weight Provider Name an d Address Organization Details Last Updated DateTime 06/30/2022 28195.56123 g Mariely Lam CNM [address] [place], [address], [facility] IV 07/05/2022 08:35:14 Date Recorded Body height Body mass index (BMI) Body weight Body temperature Systolic blood pressure Diastolic blood pressure Provider Name and Address Organization Details Last Updated DateTime 2 165.1 cm 27.1 kg/m2 09724.5 6 g 97.3 [degF] 102 mm[Hg] 76 mm[Hg] Gifty King [facility] IV 2 13:55:16 Date Recorded Body height Body mass index (BMI) Body weight Body temperature Provider Name and Address Organization Details Last Updated DateTime 09/01/2022 165.1 cm 26.9 kg/m2 83908.245 466 g 97 [degF] Bhargavi Amato [facility] IV 09/01/2022 15:38:23 Social History Question Answer Notes LastModified by Organizat ion Details LastModified Time Tobacco Smoking Status Never Smoker Shorty Arci esteves, [employer] [facility] IV 01/19/2022 16:46:36 What Is Your Level [...] SNOMED-CT Code Diagnosis ICD10 Code Diagnosis Note [id number] Mariely [facility]hena[facility]Damion is, [facility] [address] [place] [address] 12/21/2021 15:20:03 12/23/2021 14:17:24 Routine care 712639848 Z34.91 [id number] Mariely Bahena-Damion is, [facility] [address] [place] [address] 01/19/2022 16:32:23 01/20/2022 14:03:58 [id number] Mariely Bahena-Damion is, [facility] [address] [place] [address] 02/17/2022 14:11:01 02/17/2022 17:01:01 [id number] Mariely Bahena-Damion is, [facility] [address] [place] [address] 04/16/2022 11:27:02 04/18/2022 09:00:39 Routine care 549764303 Z34.03 Gestation period, 29 weeks 55115562 Z3A.29 [id number] Mariely Bahena-Damion is, [facility] [address] [place] [address] 04/27/2022 18:18:29 04/28/2022 10:12:23 History of SARS-CoV-2 8145549257 16220694 Z86.16 20097859 Z33.1 [id number] Mariely Figueroaer-Damion is, [facility] [address] [place] [address] 05/11/2022 17:53:51 05/12/2022 10:54:06 [id number] Mariely oddd, A[facility] [address] [place] [place] [address] 05/25/2022 17:54:37 05/27/2022 09:59:56 [id number] Mariely dodd, ALEXX Christiansonlo h [address] [facility] [place] [address] 06/08/2022 17:54:24 06/13/2022 14:02:51 screening 465248908 Z36.9 93690710 Z33.1 [id number] Mariely dodd, ALE[facility] Christiansonlo h [address] [facility] [place] [address] 06/14/2022 12:32:19 06/22/2022 13:40:19 [id number] Mariely dodd, ALEXX Christiansonlo h [address] [facility] [place] [address] 06/22/2022 17:59:14 06/23/2022 10:03:09 [id number] Z33.1 [id number] Mariely dodd, ALEXX Oconnor [address] [facility] [place] [address] 06/30/2022 16:08:43 07/01/2022 09:29:47 [id number] Mariely dodd, ALEXX Christiansonlo h [address] [facility] [place] [address] 07/20/2022 13:45:36 07/21/2022 10:52:19 state 87877163 Z39.2 Doing well, great supportMoo d stableEPDS 0 [id number] Mariely dodd, ALEXX BROWNKplo h [address] [facility] [place] [address] 09/01/2022 15:27:27 09/16/2022 14:36:44 state 39485505 Z39.2 Doing well, great supportMoo d stableEPDS 0POP Surveillan ce of contraception 239093573 Z30.40 Health Concerns Section Related Observation LastModified by Organization Detai ls LastModified Time None Recorded Concern Status LastModified by Organization Details LastModified Time None Recorded Advance Directives Directive None Recorded Payers Encounter Date Sequence Insurance Name Policy Number Policy Li Covered Member ID Li Member ID Guarantor Name 06/14/2022 1 [place] [id number] Karina A Bodiford [id number] Karina [place] 06/22/2022 1 [place] [id number] Karina A Bodiford [id number] Karina [place] 06/30/2022 1 [place] [id number] Karina A Bodiford [id number] Karina [place] 07/20/2022 1 [place] [id number] Karina A Bodiford [id number] Karina [place] 09/01/2022 1 [place] [id number] Karina A Bodiford [id number] Karina [place] Notes Date Note Type Note Provider Name and Address Organization Details Recorded Time 06/14/2022 text/html ___Karina____ is here today for a routine OB visit. She is currently at _37.3____weeks gestation. She has no complaints or questions. She is taking vitamins. She has felt movement. She denies the presence of vaginal bleed, leaking fluid, abdominal cramps, nausea, vomiting. There are no identifiable risk factors for pre-term labor. Mariely Lam, CN [address] [facility], [place], [address], [facility] 06/16/2022 16:59:25 06/30/2022 text/html _Karina_ is here today for a routine OB visit. She is currently at 39.5_weeks gestation. She has no complaints or questions. She is taking vitamins. She has felt movement. She denies the presence of vaginal bleed, leaking fluid, abdominal cramps, nausea, vomiting. There are no identifiable risk factors for pre-term labor. Mariely BahenaCezar MAYURZan [address] [place], [address], [facility] 07/05/2022 08:36:32 07/20/2022 text/html Patient is being seen today for 2 wk post partumNo concerns Mariely EagleAba [facility] [place], [address], [facility] IV 07/20/2022 22:06:43 09/01/2022 text/html VisitReported bypatient.Onset/Noel ing:date of delivery: (07/06/2022) Quality:VAVD Context:feeding choice: breast Patient is here for visit with no concerns Mariely EagleAba MAY[facility] [place], [address], [facility] 09/03/2022 14:45:05 OBGyn Episode Ob Episode Information Episode Created Date Number of Fetuses Patient Bloodtype Patient rh Status Prepregnancy Weight lbs Domestic Partner Domestic Partner Phone Father Name Autos Disassembler Status 12/21/19 22 1 B Negative Ty CLOSED Fetus Data First Name Last Name Admitted to NICU Weight (g) Sex Living Outcome Pediatric Complications Fetus ID Race Codes Race Delivery Type 3260.19 25 M Full Term 63774 2106-3 White Problems Problem Notes Problem Name Start Date End Date Resolution Snomed Code Not e COVID-[address] will need growth US 12/21/2021 70519115 B-/RI/NRx 3/ GBS neg Blood group B Rh(D) negative 485466811 Rhogam at 28 we eks Jaswinder Calculation [...] Gestation 0 [email or web address] 12/21/2021 07/02/20 22 0 Pre- Flowsheet Flowsheet Date 12/21/2021 Flores Score Blood Edema Fundus Height Fundus Units Glucose Ketones Leukocytes Nitrite Labor Signs Protein Cervic Dilation Cervic Effacement Cervic Station Type Weight in lbs Pre/Post Dialysis Refused Weight 164.40467075423 BP Diastolic BP Location Tested BP Systolic BP Type 80 130 Fetus Heart Rate Present Fetus Movement Comments oriented to practice, emre barbour in Centering Flowsheet Date 01/19/2022 Flores Score Blood Edema Fundus Height Fundus Units Glucose Ketones Leukocytes Nitrite Labor Signs Protein Cervic Dilation Cervic Effacement Cervic Station none none neg Type Weight in lbs Pre/Post Dialysis Refused Weight 162.113378084156 BP Diastolic BP Location Tested BP Systolic BP Type 72 128 Fetus Heart Rate Present A 144 Fetus Movement Comments Penta @ 20 weeks Flowsheet Date 02/17/2022 Flores Score Blood Edema Fundus Height Fundus Units Glucose Ketones Leukocytes Nitrite Labor Signs Protein Cervic Dilation Cervic Effacement Cervic Station none neg Type Weight in lbs Pre/Post Dialysis Refused With clothes 162.004267017345 BP Diastolic BP Location Tested BP Systolic [...] Weight in lbs Pre/Post Dialysis Refused Weight 161.932565825047 BP Diastolic BP Location Tested BP Systolic [...] Weight in lbs Pre/Post Dialysis Refused Weight 171.084286532573 BP Diastolic BP Location Tested BP Systolic [...] Weight in lbs Pre/Post Dialysis Refused Weight 170.606843782409 BP Diastolic BP Location Tested BP Systolic BP Type 60 108 Fetus Heart Rate Present A 130 Fetus Movement A Yes Comments 4D todayCentering topic-Imme diate PP period and Flowsheet Date 05/25/2022 Flores Score Blood Edema Fundus Height Fundus Units Glucose Ketones Leukocytes Nitrite Labor Signs Protein Cervic Dilation Cervic Effacement Cervic Station none 35 Eliazar Gonzalez Type Weight in lbs Pre/Post Dialysis Refused Weight 171.526614061791 BP Diastolic BP Location Tested BP Systolic BP Type 72 112 Fetus Heart Rate Present A 137 Fetus Movement A Yes Comments some eliazar gonzalez, will inc rease hydration and reviewed PTL precautions and when to go to hospitalCentering topic care Flowsheet Date 06/08/2022 Flores Score Blood Edema Fundus Height Fundus Units Glucose Ketones Leukocytes Nitrite Labor Signs Protein Cervic Dilation Cervic Effacement Cervic Station trace 36 Type Weight in lbs Pre/Post Dialysis Refused Weight 176.160826541389 BP Diastolic BP Location Tested BP Systolic BP Type 68 118 Fetus Heart Rate Present A 130 Fetus Movement A Yes Comments GBS collected Flowsheet Date 06/14/2022 Flores Score Blood Edema Fundus Height Fundus Units Glucose Ketones Leukocytes Nitrite Labor Signs Protein Cervic Dilation Cervic Effacement Cervic Station 36 none none neg Type Weight in lbs Pre/Post Dialysis Refused Weight [id number] BP Diastolic BP Location Tested BP Systolic BP Type 60 110 sitting Fetus Heart Rate Present A 130 Fetus Movement A Yes Comments GBS neg Flowsheet Date 06/22/2022 Flores Score Blood Edema Fundus Height Fundus Units Glucose Ketones Leukocytes Nitrite Labor Signs Protein Cervic Dilation Cervic Effacement Cervic Station none 38 none Type Weight in lbs Pre/Post Dialysis Refused Weight [id number] BP Diastolic BP Location Tested BP Systolic [...] Weight in lbs Pre/Post Dialysis Refused Weight 178.437939283110 BP Diastolic BP Location Tested BP Systolic BP Type 60 110 sitting Fetus Heart Rate Present A 140 Fetus Movement A Yes Comments IOL for 07/05 Flowsheet Date 07/20/2022 Flores Score Blood Edema Fundus Height Fundus Units Glucose Ketones Leukocytes Nitrite Labor Signs Protein Cervic Dilation Cervic Effacement Cervic Station Type Weight in lbs Pre/Post Dialysis Refused Weight 163.158858851732 BP Diastolic BP Location Tested BP Systolic BP Type 76 102 Fetus Heart Rate Present Fetus Movement Comments Flowsheet Date 09/01/2022 Flores Score Blood Edema Fundus Height Fundus Units Glucose Ketones Leukocytes Nitrite Labor Signs Protein Cervic Dilation Cervic Effacement Cervic Station Type Weight in lbs Pre/Post Dialysis Refused With clothes [id number] BP Diastolic BP Location Tested BP Systolic [...] Disease false Other Infection History false Thalassemia (Romansh, Luxembourger, Mediterranean, Or Background): MCV < 80 false [...] false History of Hepatitis false Rafat-Sachs (eg, Christianity, Cajun, Swedish-Teague) f alse History Of STD, Gonorrhea, Chlamydia, HPV, Syphi lis false Prior GBS-infected child false History of HIV false Personal or Family History o f Neural Tube Defect (Meningomyelocele, Spina Bifida, Or Anencephaly) false Hemophilia Or Other Blood Disorders false Mental Retardation/Autism false [place]'s Chorea false If Yes, Was Person Tested [...]
== END 2025-03-26 11:47 | disposition home or self-care (01) ==
LOC: ANHLAB 11:48
PROVIDERS: Visit Provider Obstetrics & Gynecology
DX: Z30.014 Encounter for initial prescription of intrauterine contraceptive device (principal)
CPT/HCPCS: 36415; 84702